=== PATIENT | female | born 1935 | race Caucasian/White ===

== ENCOUNTER 2016-06-02 13:58 | Emergency (ER) | payer OTHER ==
[~2016-06-02] VITALS: Ht 162.6 cm; Wt 88.0 kg
[~2016-06-02 13:58] MED LIST: ALBUAER2 INH; AMX500 PO; ASPEC81 PO; ATOR10TA88 PO; ATV5 PO; CHOL100010 PO; CLX20 PO; Cod Liver Oil PO; DXY100 PO; EZET10TA63 PO; FLUT110A INH; FRS/40 PO; LISI-461 PO; METO1TAB31 PO; MULT-506 PO; OXGN; PANT40TA PO; TIOTCAP INH; XPNINS INH
[2016-06-02 14:02] VITALS: TEMP 36.5; O2SAT 98; Ht 162.6 cm; Wt 88.0 kg
[2016-06-02] MEDS ORDERED: KETOROLAC TROMETHAMINE 30 MG/ML VIAL IV STA (14:44)
[2016-06-02] MEDS ORDERED: SODIUM CHLORIDE 0.9% 1000ML 500 ML IV STA (14:44)
[2016-06-02] MEDS ORDERED: ACETAMINOPHEN 500 MG TAB PO STA (14:44)
[2016-06-02] MEDS ORDERED: MoRPHine SULFATE 4 MG/ML 1 ML CARP\\VIAL IV PRN ×2 (14:45)
--- NOTE | 2016-06-02 14:46 | EMERGENCY ROOM VISIT NOTE ---
History Report prepared by Carrie: Rigoberto Verdin Under the Supervision of: Dr. Mauricio Watts M.D. First contact with patient: 14:28 Chief Complaint: BACK PAIN Stated Complaint: BACK PAIN History of Present Illness The patient is a 81 year old female who presents to the Emergency Room with complaints of severe and persistent low back pain starting 5 days ago. She also complains of diffuse abdominal pain. The patient recently had an x-ray for her pain with negative results. She also had a noncontrast CT scan of her back yesterday with negative results. She has not been prescribed any pain medication by her PCP. She has a history of thoracic aneurysm repair occurring several years ago. She denies fevers, chills, chest pain, or any other complaints. She has chronic shortness of breath. Source of History: patient Onset: 5 days ago Position: back (lower) Symptom Intensity: severe Timing: other (persistent) Associated Symptoms: + SOB (chronic), + abdominal pain, No chest pain, No chills, No fevers Review of Systems See HPI for pertinent positives & negatives. A total of 10 systems reviewed and were otherwise negative. Past Medical & Surgical Medical Problems: (1) Anxiety (2) aortic dissection repair (3) CKD (chronic kidney disease), stage III (4) COPD (chronic obstructive pulmonary disease) (5) Depression (6) Diaphragm paralysis (7) Diastolic CHF, chronic (8) Diverticular disease of colon (9) History of aortic dissection (10) Hyperlipemia (11) Hypertension (12) Hypertensive heart disease (13) Sleep apnea Surgical Problems: (1) Status post aortic dissection repair Family History Colon cancer MOTHER Coronary artery disease FATHER Diabetes mellitus MOTHER Social History Smoking Status: Former Smoker Alcohol Use: none Drug Use: none Marital Status: Housing Status: lives with family Occupation Status: retired Current/Historical Medications Scheduled Alendronate Sodium (Fosamax), 70 MG PO WK Amoxicillin (Amoxil *), 2,000 MG PO PRN/UD Aspirin Enteric Coated (Ecotrin Or Generic *), 81 MG PO DAILY Atorvastatin (Lipitor), 40 MG PO DAILY Cholecalciferol (Vitamin D), 1,000 INTER.UNIT PO DAILY Fluticasone Propionate Hfa (Flovent Hfa 110MCG Inhaler), 2 PUFF INH BID Furosemide (Lasix), 40 MG PO DAILY Lisinopril (Zestril), 5 MG PO DAILY Multivitamin (Multivitamin), 1 TAB PO DAILY Oxygen (Oxygen), 2 LITERS NA HS Pantoprazole (Protonix), 40 MG PO DAILY Sertraline (Zoloft), 100 MG PO DAILY Tiotropium [place] (Spiriva Handihaler), 1 CAP INH DAILY Scheduled PRN Albuterol (Ventolin Hfa), 2 PUFFS INH Q4H PRN for SOB/Wheezing Levalbuterol (Levalbuterol HCl), 0.63 MG INH Q8 PRN for SOB/Wheezing Lorazepam (Ativan *), 0.5 MG PO TID PRN for Anxiety Oxycodone/Acetaminophen 5MG/325MG (Percocet 5MG/325MG), 1-2 TABLETS PO Q4H PRN for Pain Miscellaneous Medications Acetaminophen (Tylenol), 1,000 MG PO Allergies Coded Allergies: Bacitracin (Unverified Allergy, Mild, REDNESS, 06/02/16) Neomycin (Unverified Allergy, Mild, REDNESS, 06/02/16) Polymyxin B (Unverified Allergy, Mild, REDNESS, 06/02/16) Physical Exam Vital Signs Date Time Temp Pulse Resp B/P Pulse Ox O2 Delivery O2 Flow Rate FiO2 06/02/16 18:10 80 20 158/60 Room Air 06/02/16 14:02 36.5 58 20 169/72 98 Room Air Physical Exam CONSTITUTIONAL: Moderate painful distress, appears mildly dyspneic but this is reportedly baseline after paralyzed diaphragm occurring several years ago. HEENT: No icterus, moist mucous membranes NECK: No meningismus, trachea is midline. CARDIOVASCULAR: Regular rate, normal perfusion RESPIRATORY: Unlabored breathing. Clear to auscultation. GASTROINTESTINAL: Non-tender GENITOURINARY: No flank tenderness MUSCULOSKELETAL: Full range of motion. Moderate diffuse low back pain right greater than left. NEUROLOGIC: No acute gross focal deficits. PSYCHIATRIC: Normal affect SKIN: Normal for ethnicity. Medical Decision & Procedures ER Provider Diagnostic Interpretation: CT results as stated below per my review and radiologist interpretation. 06/01/2016 CT ABDOMEN/PELVIS WITHOUT IV CONTRAST WITHOUT ORAL Abdominal wall/soft tissues: Unremarkable Bones: Multilevel degenerative changes in the spine. Bilateral hip osteoarthritis. Impression: No acute abnormality identified to explain the patient's abdominal pain. Authenticated by: Dieudonne Ware MD ADDENDUM Addendum: Upon further review, note was made of a small outpouching along the lateral wall of the mid descending thoracic aorta shown image 142 of 596. This may reflect a small penetrating ulcer. A short-term follow-up CTA of the chest is recommended. Discussed with Dr. Watts at time of dictation. Electronically signed by: Aleks Matute M.D. 06/02/2016 5:44 PM Dictated Date/Time: 06/02/2016 5:[address] ANGIOGRAPHY OF THE CHEST, ABDOMEN, AND PELVIS CLINICAL HISTORY: Back pain. History of aneurysm. COMPARISON STUDY: Chest CT June 22, [address] of the chest abdomen and pelvis October 08, 2009 and November 23, 2009 TECHNIQUE: Before and following the IV administration of 116 mL of Optiray-320, helical axial images of the chest, abdomen and pelvis were obtained. Maximal intensity projections and sagittal and coronal reformats were viewed on an independent 3D workstation. IV contrast was administered without complication. CT DOSE: 1752.53 mGy.cm FINDINGS: There are stable postsurgical findings consistent with repair of the ascending aorta. Mild dilatation is unchanged. There is no evidence for dissection or rupture. Mild to moderate cardiomegaly is noted. This extensive coronary artery calcification. No pulmonary emboli are identified. Right lung opacity suggest atelectasis or scarring. There is extensive atherosclerotic plaque of the aorta. Mild dilatation of the descending thoracic aorta is unchanged. Mild dilatation of the abdominal aorta has slightly increased. The abdominal aorta measures 3.1 cm in caliber. There are small gallstones within the gallbladder. There is mild gallbladder distention. A hepatic dome cyst is noted. The spleen, adrenal glands and pancreas are unremarkable. There are several subcentimeter renal lesions which are too small to characterize. There is no evidence for a bowel obstruction. There is a calcified uterine fibroid. Clonic diverticulosis is noted without evidence for acute diverticulitis. IMPRESSION: 1. No aortic dissection. Stable postoperative findings consistent with repair of the thoracic aorta since prior exam. Stable mild dilatation of the thoracic aorta. 2. 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 3. No acute process within the chest. 4. Cholelithiasis and mild gallbladder distention. This could be correlated with right upper quadrant pain and ultrasound as indicated. Electronically signed by: Aleks Matute M.D. 06/02/2016 5:31 PM Dictated Date/Time: 06/02/2016 5:20 PM Laboratory Results 06/02/16 15:00 Red Blood Count 4.05, Mean Corpuscular Volume 90.9, Mean Corpuscular Hemoglobin 30.9, Mean Corpuscular Hemoglobin Concent 34.0, Mean Platelet Volume 9.9, Neutrophils (%) (Auto) 53.6, Lymphocytes (%) (Auto) 37.0, Monocytes (%) (Auto) 6.2, Eosinophils (%) (Auto) 2.4, Basophils (%) (Auto) 0.6, Neutrophils # (Auto) 3.35, Lymphocytes # (Auto) 2.31, Monocytes # (Auto) 0.39, Eosinophils # (Auto) 0.15, Basophils # (Auto) 0.04 06/02/16 15:00 Test 06/02/16 15:00 06/02/16 17:40 White Blood Count 6.25 K/uL (4.8-10.8) Red Blood Count 4.05 M/uL (4.2-5.4) Hemoglobin 12.5 g/dL (12.0-16.0) Hematocrit 36.8 % (37-47) Mean Corpuscular Volume 90.9 fL (80-100) Mean Corpuscular Hemoglobin 30.9 pg (25-34) Mean Corpuscular Hemoglobin Concent 34.0 g/dl (32-36) Platelet Count 157 K/uL (130-400) Mean Platelet Volume 9.9 fL (7.4-10.4) Neutrophils (%) (Auto) 53.6 % Lymphocytes (%) (Auto) 37.0 % Monocytes (%) (Auto) 6.2 % Eosinophils (%) (Auto) 2.4 % Basophils (%) (Auto) 0.6 % Neutrophils # (Auto) 3.35 K/uL (1.4-6.5) Lymphocytes # (Auto) 2.31 K/uL (1.2-3.4) Monocytes # (Auto) 0.39 K/uL (0.11-0.59) Eosinophils # (Auto) 0.15 K/uL (0-0.5) Basophils # (Auto) 0.04 K/uL (0-0.2) RDW Standard Deviation 48.0 fL (36.4-46.3) RDW Coefficient of Variation 14.3 % (11.5-14.5) Immature Granulocyte % (Auto) 0.2 % Immature Granulocyte # (Auto) 0.01 K/uL (0.00-0.02) Anion Gap 9.0 mmol/L (3-11) Est Creatinine Clear Calc Drug Dose 47.4 ml/min Estimated GFR () 61.2 Estimated GFR (Non- 52.8 BUN/Creatinine Ratio 20.1 (10-20) Calcium Level 9.6 mg/dl (8.5-10.1) Total Bilirubin 0.3 mg/dl (0.2-1) Aspartate Amino Transf (AST/SGOT) 12 U/L (15-37) Alanine Aminotransferase (ALT/SGPT) 14 U/L (12-78) Alkaline Phosphatase 79 U/L (45-117) Total Protein 6.9 gm/dl (6.4-8.2) Albumin 4.1 gm/dl (3.4-5.0) Globulin 2.8 gm/dl (2.5-4.0) Albumin/Globulin Ratio 1.5 (0.9-2) Urine Color YELLOW Urine Appearance CLEAR (CLEAR) Urine pH 5.0 (4.5-7.5) Urine Specific [place] > 1.045 (1.000-1.030) Urine Protein NEG (NEG) Urine Glucose (UA) NEG (NEG) Urine Ketones NEG (NEG) Urine Occult Blood NEG (NEG) Urine Nitrite NEG (NEG) Urine Bilirubin NEG (NEG) Urine Urobilinogen NEG (NEG) Urine Leukocyte Esterase NEG (NEG) Labs reviewed by ED physician. Medications Administered Medications (Trade) Dose Ordered Sig/[place] Route Start Time Stop Time Status Last Admin Dose Admin Acetaminophen 1000 mg 1,000 mg NOW STAT PO 06/02/16 14:44 06/02/16 14:46 DC 06/02/16 15:14 1,000 MG Sodium Chloride (Nss 1000ml) 500 ml @ 0 mls/hr Q0M STAT IV 06/02/16 14:44 06/02/16 14:46 DC 06/02/16 15:16 0 MLS/HR Ketorolac Tromethamine (Toradol Inj) 15 mg NOW STAT IV 06/02/16 14:44 06/02/16 14:46 DC 06/02/16 15:13 15 MG Morphine Sulfate (MoRPHine SULFATE INJ) 4 mg ONE PRN IV 06/02/16 14:45 06/16/16 14:44 06/02/16 15:14 4 MG ED Course 1428: Past medical records reviewed. The patient was evaluated in room A04B. A complete history and physical examination was performed. 1444: Toradol Inj 15 mg IV, Sodium Chloride 500 ml @ 0 mls/hr Wide Open IV, Tylenol Tab 1000 mg PO 1445: Morphine Sulfate 4 mg IV 1743: I discussed the patient's radiology findings with Dr. Matute, radiologist with [facility]. 174: I discussed the patient's case with Dr. Abarca, vascular surgeon with [facility]. He recommended discharging the patient. 1804: Upon reexamination the patient is resting comfortably. I discussed results and treatment plan with the patient. She verbalizes agreement and understanding. The patient is ready for discharge. Medical Decision Differential diagnosis includes but is not limited to musculoskeletal pain, kidney stone, and AAA. 81-year-old presented to the emergency department for evaluation of worsening lower thoracic and lumbar back pain for several days without other systemic complaints. Seen by PCP with normal xray and CT abd/pelvis yesterday. Pt noted specific concern around prior thoracic aneurysm. In summary, a screening examination was performed to assess for life threatening pathologies and none were identified. Possibility of mild penetrating aortic ulcer discussed with radiology and then vascular on-call, Dr. Sánchez. We agree that radiologic findings do not appear to represent emergent pathology at this time. Patient was provided analgesics during ED course as well as Rx. It is noted that at the time of discharge pt was concerned I did not perform a physical examination. It is my recollection that I did perform both visual and tactile inspections of the back. She was also concerned I did not sufficiently assess for causes of her pain the ED today. The nature of patient's wait times (more than 4.5 hours door to discharge) and degree of staff attention are taken within the context of an especially busy ED with 2+ hour waits for patients' at risk for substantial emergent disease. She notes she was expecting an MRI after speaking with her PCP today and was surprised when I informed her that there did not appear to be a medical indication for emergent imaging with MRI at this time. It is also noted that I initially wanted to obtain CT chest/abd but patient declined citing concern she already had CT imaging yesterday. Therefore, I obtained copy of CT abd/pelvis report which was normal. I gave a copy of this report to patient and she continued to demonstrate concern over the thoracic aorta so I subsequently ordered the CTA Chest that I had originally informed her I would obtain but that was initially declined by her. I apologized that I could not identify the cause for her pain today but that musculoskeletal pain was high on the differential. I emphasized she can take 1- 2 tabs Q6 hours for pain, to arrange f/u with her PCP and to return to the ED for any worsening or worrisome symptoms. I made specific mention in the discharge instructions to discuss today's CT findings with her PCP. Consults Time Called: 1741 Consulting Physician: Dr. Matute, radiologist with [facility] Returned Call: 1742 I discussed the patient's radiology findings with Dr. Matute, radiologist with [facility]. Additional Consults: Time Called: 1743 Consulted Physician: Dr. Abarca, vascular surgeon with [facility] Returned Call: 1748 Additional Comments: I discussed the patient's case with Dr. Abarca, vascular surgeon with [facility]. He recommended discharging the patient. Impression Primary Impression: Back strain Scribe Attestation The scribe's documentation has been prepared under my direction and personally reviewed by me in its entirety. I confirm that the note above accurately reflects all work, treatment, procedures, and medical decision making performed by me. Departure Information Dispostion Home / Self-Care Prescriptions Oxycodone/Acetaminophen 5MG/325MG (PERCOCET 5MG/325MG) Tab 1-2 TABLETS PO Q4H Y for Pain, #20 TAB Prov: Mauricio Watts MD 06/02/16 Referrals Jacey Warner M.D. (PCP) Forms HOME CARE DOCUMENTATION FORM, IMPORTANT VISIT INFORMATION Patient Instructions Back Pain - [facility] Additional Instructions PLEASE FOLLOW-UP WITH YOUR DOCTOR AND DISCUSS THE CT FINDINGS. I SPOKE WITH VASCULAR SURGERY ON-CALL, Dr. ABARCA, WHO ADVISES OUTPATIENT FOLLOW-UP IS REASONABLE AT THIS TIME. PLEASE RETURN TO ER FOR ANY WORSENING OR WORRISOME SYMPTOMS.
[2016-06-02] MEDS ORDERED: ACET-1256 PO (15:05)
[2016-06-02 15:08] LABS: BASO % 0.6 %; BASO ABS # 0.04 K/uL (0-0.2); COMPLETE YES; EOS % 2.4 %; HEMATOCRIT 36.8 % (37-47); IG% 0.2 %; LYMPH ABS # 2.31 K/uL (1.2-3.4); MEAN CELL VOLUME 90.9 fL (80-100); MEAN CORPUSCULAR HEMOGLOBIN 30.9 pg (25-34); MEAN PLATELET VOLUME 9.9 fL (7.4-10.4); MONO % 6.2 %; NEUT % 53.6 %; PLATELET COUNT 157 K/uL (130-400); RED BLOOD COUNT 4.05 M/uL (4.2-5.4); WHITE BLOOD COUNT 6.25 K/uL (4.8-10.8)
[2016-06-02] MEDS ORDERED: SERT-234 PO (15:10)
[2016-06-02] MEDS ORDERED: ALEN70TA4 PO (15:10)
[2016-06-02] MEDS ORDERED: OPTIRAY 320 IV PRN (15:30)
[2016-06-02 15:37] LABS: BUN/CREATININE RATIO 20.1 (10-20); CALCIUM 9.6 mg/dl (8.5-10.1); POTASSIUM 3.6 mmol/L (3.5-5.1)
[2016-06-02 15:40] LABS: ALB/GLOB RATIO 1.5 (0.9-2)
--- NOTE | 2016-06-02 17:32 | DIAGNOSTIC IMAGING REPORT ---
ADDENDUM Addendum: Upon further review, note was made of a small outpouching along the lateral wall of the mid descending thoracic aorta shown image 142 of 596. This may reflect a small penetrating ulcer. A short-term follow-up CTA of the chest is recommended. Discussed with Dr. Watts at time of dictation. Electronically signed by: Aleks Matute M.D. 06/02/2016 5:44 PM Dictated Date/Time: 06/02/2016 5:[address] ANGIOGRAPHY OF THE CHEST, ABDOMEN, AND PELVIS CLINICAL HISTORY: Back pain. History of aneurysm. COMPARISON STUDY: Chest CT June 22, [address] of the chest abdomen and pelvis October 08, 2009 and November 23, 2009 TECHNIQUE: Before and following the IV administration of 116 mL of Optiray-320, helical axial images of the chest, abdomen and pelvis were obtained. Maximal intensity projections and sagittal and coronal reformats were viewed on an independent 3D workstation. IV contrast was administered without complication. CT DOSE: 1752.53 mGy.cm FINDINGS: There are stable postsurgical findings consistent with repair of the ascending aorta. Mild dilatation is unchanged. There is no evidence for dissection or rupture. Mild to moderate cardiomegaly is noted. This extensive coronary artery calcification. No pulmonary emboli are identified. Right lung opacity suggest atelectasis or scarring. There is extensive atherosclerotic plaque of the aorta. Mild dilatation of the descending thoracic aorta is unchanged. Mild dilatation of the abdominal aorta has slightly increased. The abdominal aorta measures 3.1 cm in caliber. There are small gallstones within the gallbladder. There is mild gallbladder distention. A hepatic dome cyst is noted. The spleen, adrenal glands and pancreas are unremarkable. There are several subcentimeter renal lesions which are too small to characterize. There is no evidence for a bowel obstruction. There is a calcified uterine fibroid. Clonic diverticulosis is noted without evidence for acute diverticulitis. IMPRESSION: 1. No aortic dissection. Stable postoperative findings consistent with repair of the thoracic aorta since prior exam. Stable mild dilatation of the thoracic aorta. 2. 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 3. No acute process within the chest. 4. Cholelithiasis and mild gallbladder distention. This could be correlated with right upper quadrant pain and ultrasound as indicated. Electronically signed by: Aleks Matute M.D. 06/02/2016 5:31 PM Dictated Date/Time: 06/02/2016 5:20 PM
[2016-06-02] MEDS ORDERED: OXYC-57 PO (17:59)
[2016-06-02 18:10] VITALS: BP 158/60; PULSE 80
[2016-06-02 18:23] LABS: MANUAL MICROSCOPIC REQUIRED? NO; REVIEW REQ? NO; URINE APPEARANCE CLEAR (CLEAR); URINE BILIRUBIN NEG (NEG); URINE COLOR YELLOW; URINE NITRITE NEG (NEG); URINE SPECIFIC GRAVITY > 1.045 (1.000-1.030); UROBILINOGEN NEG (NEG); ZZUR CULT IF INDIC CLEAN CATCH NO
[2017-02-08] MEDS ORDERED: LVQ750 PO (17:06)
[2017-02-08] MEDS ORDERED: PRED10TA PO (17:06)
== END 2016-06-02 18:33 | disposition home or self-care (01) ==
LOC: C.EDB 13:59 → C.EDA 18:33
DX: S39.012A Strain of muscle, fascia and tendon of lower back, initial encounter (principal); X58.XXXA Exposure to other specified factors, initial encounter; F41.9 Anxiety disorder, unspecified; N18.3 Chronic kidney disease, stage 3 (moderate); J44.9 Chronic obstructive pulmonary disease, unspecified; I12.9 Hypertensive chronic kidney disease with stage 1 through stage 4 chronic kidney disease, or unspecified chronic kidney disease; F32.9 Major depressive disorder, single episode, unspecified; I50.32 Chronic diastolic (congestive) heart failure; E78.5 Hyperlipidemia, unspecified; G47.30 Sleep apnea, unspecified; Z83.3 Family history of diabetes mellitus; Z80.0 Family history of malignant neoplasm of digestive organs; Z82.49 Family history of ischemic heart disease and other diseases of the circulatory system; Z87.891 Personal history of nicotine dependence; Z79.82 Long term (current) use of aspirin; Z79.899 Other long term (current) drug therapy

== ENCOUNTER 2017-02-03 10:57 | Inpatient (IN) | payer OTHER ==
[2017-02-03] VITALS (7 sets, daily range): BP systolic 156–161; BP diastolic 77; PULSE 61–88; TEMP 36.6–36.8; O2SAT 94–96; Ht 162.6 cm; Wt 90.8 kg
[~2017-02-03] VITALS: Ht 162.6 cm; Wt 90.8 kg
[~2017-02-03 10:57] MED LIST changes: +ACET-1256 PO; +ALEN70TA4 PO; -CLX20 PO; -Cod Liver Oil PO; -DXY100 PO; -EZET10TA63 PO; -METO1TAB31 PO; +SERT-234 PO
[2017-02-03 11:46] LABS: BASO % 0.2 %; BASO ABS # 0.02 K/uL (0-0.2); COMPLETE YES; EOS % 0.1 %; IG% 0.3 %; LYMPH % 6.8 %; LYMPH ABS # 0.64 K/uL (1.2-3.4); MEAN CELL VOLUME 95.8 fL (80-100); MEAN CORPUSCULAR HEMOGLOBIN 30.5 pg (25-34); MEAN CORPUSCULAR HGB CONC 31.8 g/dl (32-36); MEAN PLATELET VOLUME 10.7 fL (7.4-10.4); MONO % 2.2 %; NEUT % 90.4 %; PLATELET COUNT 195 K/uL (130-400); RED BLOOD COUNT 4.07 M/uL (4.2-5.4); WHITE BLOOD COUNT 9.36 K/uL (4.8-10.8)
[2017-02-03] MEDS ORDERED: LEVAQUIN 750MG / 150ML D5W IV STA (11:52)
[2017-02-03] MEDS ORDERED: ALBUT/IPRATROP 3MG/0.5MG NEB 3 ML VIAL INH STA (11:52)
[2017-02-03 11:57] LABS: PROTHROMBIN TIME (PATIENT) 10.9 SECONDS (9.0-12.0)
--- NOTE | 2017-02-03 11:57 | DIAGNOSTIC IMAGING REPORT ---
CHEST ONE VIEW PORTABLE CLINICAL HISTORY: SOB, cough COMPARISON STUDY: 10/02/2015 FINDINGS: The heart is mildly enlarged. There is aortic tortuosity. There are postsurgical changes of midline sternotomy. There is mild central vascular prominence without evidence of overt failure. There is elevation of the lateral aspect of the right hemidiaphragm with right basilar opacities. These could be either atelectatic or inflammatory.[ IMPRESSION: 1. Cardiomegaly with mild central vascular prominence but no evidence of overt failure 2. Probable right sided pleural diaphragmatic scarring. Right basilar opacities, atelectatic versus inflammatory. Electronically signed by: Joe Nicholas M.D. 02/03/2017 11:56 AM Dictated Date/Time: 02/03/2017 11:54 AM
--- NOTE | 2017-02-03 12:00 | EMERGENCY ROOM VISIT NOTE ---
History Report prepared by Carrie: Yang James Under the Supervision of: Dr. Ryan Benoit D.O. First contact with patient: 11:47 Chief Complaint: SHORTNESS OF BREATH Stated Complaint: SHORT OF BREATH Nursing Triage Summary: Patient arrived via EMS c/o cough since Monday. 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 Pt c/o sore throat from coughing. 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 Pt denies that the woman was coughing. History of Present Illness The patient is an 81 year old female with a history of frequent pneumonia who presents to the Emergency Room via EMS with complaints of worsening shortness of breath that started 3 days ago. She says that she has the frequent pneumonia bouts because of a paralyzed right side of diaphragm from a thoracic aorta aneurysm rupture. She says that she caught another cold, but with her lung problems, her colds get very bad. She states that she has a productive cough with clear sputum in addition to the shortness of breath. The patient adds that she has had pneumonia 7 times, and was hospitalized twice for it. She says that she usually takes her rescue medications when the symptoms come on, and sometimes it does relieve her symptoms. The patient notes that she did start her rescue medications 2 days ago, which include a Prednisone taper and Doxycycline. Per the nursing staff, the patient was given 2 DuoNeb and 125 mg Solu-Medrol by EMS. The patient denies any fevers, chest pain, or leg swelling. Source of History: patient Onset: 3 days ago Position: other (global - shortness of breath) Timing: worsening Associated Symptoms: + cough (productive), No fevers, No chest pain Note: Associated symptoms: Denies leg swelling. Review of Systems See HPI for pertinent positives & negatives. A total of 10 systems reviewed and were otherwise negative. Past Medical & Surgical Medical Problems: (1) Anxiety (2) aortic dissection repair (3) CKD (chronic kidney disease), stage III (4) COPD (chronic obstructive pulmonary disease) (5) Depression (6) Diaphragm paralysis (7) Diastolic CHF, chronic (8) Diverticular disease of colon (9) History of aortic dissection (10) Hyperlipemia (11) Hypertension (12) Hypertensive heart disease (13) Hypoxia (14) Sleep apnea Surgical Problems: (1) Status post aortic dissection repair Family History Colon cancer MOTHER Coronary artery disease FATHER Diabetes mellitus MOTHER Social History Smoking Status: Never Smoker Alcohol Use: none Drug Use: none Marital Status: Housing Status: lives with family Occupation Status: retired Current/Historical Medications Scheduled Aspirin (Aspirin Ec), 81 MG PO DAILY Atorvastatin (Lipitor), 40 MG PO DAILY Carvedilol (Coreg), 3.125 MG PO DAILY Cholecalciferol (Vitamin D3), 1 TAB PO DAILY Furosemide (Lasix), 1.5 TAB PO DAILY Home O2 Therapy (Oxygen), 2 LITERS NA HS Lisinopril (Zestril), 5 MG PO DAILY Mometasone Furoate-Formoterol (Dulera 200/5 Mcg), 2 PUFFS INH BID Multivitamin (Multivitamin), 1 TAB PO DAILY Pantoprazole (Protonix), 40 MG PO DAILY Sertraline (Zoloft), 100 MG PO DAILY Scheduled PRN Albuterol Hfa (Ventolin Hfa), 2-4 PUFFS INH Q4H PRN for SOB/Wheezing Levalbuterol (Levalbuterol HCl), 1 DOSE INH Q6H PRN for SOB/Wheezing Lorazepam (Ativan), 0.5 MG PO TID PRN for Anxiety/Insomnia Tiotropium [place] (Spiriva Handihaler), 1 CAP INH for Shortness of Breath Miscellaneous Medications Acetaminophen (Tylenol), 1,000 MG PO Amoxicillin (Amoxil), 500 MG PO Allergies Coded Allergies: Bacitracin (Unverified Allergy, Mild, REDNESS, 02/03/17) Neomycin (Unverified Allergy, Mild, REDNESS, 02/03/17) Polymyxin B (Unverified Allergy, Mild, REDNESS, 02/03/17) Physical Exam Vital Signs Date Time Temp Pulse Resp B/P (MAP) Pulse Ox O2 Delivery O2 Flow Rate FiO2 02/03/17 13:21 96 Nasal Cannula 4.0 02/03/17 11:57 81 16 160/73 96 Nasal Cannula 4.0 02/03/17 11:36 89 02/03/17 11:15 94 Nasal Cannula 4.0 9/22/17 11:15 94 Nasal Cannula 4.0 02/03/17 11:00 37.1 78 16 180/76 96 Nasal Cannula 4.0 02/03/17 11:00 94 Room Air 02/03/17 11:00 96 Nasal Cannula 4.0 Physical Exam GENERAL: Patient is awake, alert, somewhat anxious appearing but comfortable. EYES: The conjunctivae are clear. The pupils are round and reactive. EARS, NOSE, MOUTH AND THROAT: The nose is without any evidence of any deformity. Mucous membranes are moist tongue is midline NECK: The neck is nontender and supple. RESPIRATORY: Lung sounds are diminished throughout with scattered expiratory wheezing in all white. Significant tachypnea and conversational dyspnea noted. CARDIOVASCULAR: Regular rate and rhythm noted there no murmurs rubs or gallops normal S1 normal S2 GASTROINTESTINAL: The abdomen is soft. Bowel sounds are present in all quadrants. Abdomen is nontender MUSCULOSKELETAL/EXTREMITIES: There is no evidence of gross deformity full range of motion is noted in the hips and shoulders SKIN: Trace pedal edema bilaterally. NEUROLOGIC: Patient is awake alert and oriented x3. Medical Decision & Procedures ER Provider Diagnostic Interpretation: X-ray results as stated below per interpretation by me and the radiologist. CHEST ONE VIEW PORTABLE CLINICAL HISTORY: SOB, cough COMPARISON STUDY: 10/02/2015 FINDINGS: The heart is mildly enlarged. There is aortic tortuosity. There are postsurgical changes of midline sternotomy. There is mild central vascular prominence without evidence of overt failure. There is elevation of the lateral aspect of the right hemidiaphragm with right basilar opacities. These could be either atelectatic or inflammatory.[ IMPRESSION: 1. Cardiomegaly with mild central vascular prominence but no evidence of overt failure 2. Probable right sided pleural diaphragmatic scarring. Right basilar opacities, atelectatic versus inflammatory. Electronically signed by: Joe Nicholas M.D. 02/03/2017 11:56 AM Dictated Date/Time: 02/03/2017 11:54 AM Laboratory Results 02/03/17 10:21 Red Blood Count 4.07, Mean Corpuscular Volume 95.8, Mean Corpuscular Hemoglobin 30.5, Mean Corpuscular Hemoglobin Concent 31.8, Mean Platelet Volume 10.7, Neutrophils (%) (Auto) 90.4, Lymphocytes (%) (Auto) 6.8, Monocytes (%) (Auto) 2.2, Eosinophils (%) (Auto) 0.1, Basophils (%) (Auto) 0.2, Neutrophils # (Auto) 8.45, Lymphocytes # (Auto) 0.64, Monocytes # (Auto) 0.21, Eosinophils # (Auto) 0.01, Basophils # (Auto) 0.02 02/03/17 10:21 Test 02/03/17 10:21 White Blood Count 9.36 K/uL (4.8-10.8) Red Blood Count 4.07 M/uL (4.2-5.4) Hemoglobin 12.4 g/dL (12.0-16.0) Hematocrit 39.0 % (37-47) Mean Corpuscular Volume 95.8 fL (80-100) Mean Corpuscular Hemoglobin 30.5 pg (25-34) Mean Corpuscular Hemoglobin Concent 31.8 g/dl (32-36) Platelet Count 195 K/uL (130-400) Mean Platelet Volume 10.7 fL (7.4-10.4) Neutrophils (%) (Auto) 90.4 % Lymphocytes (%) (Auto) 6.8 % Monocytes (%) (Auto) 2.2 % Eosinophils (%) (Auto) 0.1 % Basophils (%) (Auto) 0.2 % Neutrophils # (Auto) 8.45 K/uL (1.4-6.5) Lymphocytes # (Auto) 0.64 K/uL (1.2-3.4) Monocytes # (Auto) 0.21 K/uL (0.11-0.59) Eosinophils # (Auto) 0.01 K/uL (0-0.5) Basophils # (Auto) 0.02 K/uL (0-0.2) RDW Standard Deviation 51.0 fL (36.4-46.3) RDW Coefficient of Variation 14.7 % (11.5-14.5) Immature Granulocyte % (Auto) 0.3 % Immature Granulocyte # (Auto) 0.03 K/uL (0.00-0.02) Prothrombin Time 10.9 SECONDS (9.0-12.0) Prothromb Time International Ratio 1.0 (0.9-1.1) Activated Partial Thromboplast Time 25.3 SECONDS (21.0-31.0) Partial Thromboplastin Ratio 1.0 Anion Gap 7.0 mmol/L (3-11) Est Creatinine Clear Calc Drug Dose 57.7 ml/min Estimated GFR () 74.5 Estimated GFR (Non- 64.3 BUN/Creatinine Ratio 18.7 (10-20) Calcium Level 9.3 mg/dl (8.5-10.1) Total Bilirubin 0.4 mg/dl (0.2-1) Aspartate Amino Transf (AST/SGOT) 11 U/L (15-37) Alanine Aminotransferase (ALT/SGPT) 19 U/L (12-78) Alkaline Phosphatase 99 U/L (45-117) Troponin I 0.171 ng/ml (0-0.045) Total Protein 7.4 gm/dl (6.4-8.2) Albumin 4.0 gm/dl (3.4-5.0) Globulin 3.4 gm/dl (2.5-4.0) Albumin/Globulin Ratio 1.2 (0.9-2) Laboratory results per my review. Medications Administered Medications (Trade) Dose Ordered Sig/Maricel Route Start Time Stop Time Status Last Admin Dose Admin Albuterol/ Ipratropium (Duoneb) 3 ml NOW STAT INH 02/03/17 11:52 02/03/17 11:53 DC 02/03/17 11:59 3 ML Levofloxacin (Levaquin / D5W) 750 mg NOW STAT IV 02/03/17 11:52 02/03/17 11:53 DC 02/03/17 11:59 750 MG Acetaminophen (Tylenol Tab) 1,000 mg NOW STAT PO 02/03/17 13:40 02/03/17 13:41 DC 02/03/17 13:52 1,000 MG ECG Indication: SOB/dyspnea Rate (beats per minute): 76 Rhythm: normal sinus Findings: ST depression (Lateral), no ectopy, other (LVH noted by voltage criteria) Comparison ECG Date: increased rate otherwise no significant change from July 03 2013 ED Course 1150: The patient was evaluated in room C4. A complete history and physical examination were performed. 1152: Ordered Levaquin / D5W 750 mg IV, DuoNeb 3 ml INH. 1235: I reevaluated the patient and she is resting. The patient verbally expressed understanding and agreement with the treatment plan. The patient will be evaluated for further treatment. 1243: I discussed the patient with Dr. Eric Tran dosimetrist. She will evaluate the patient for further treatment. Medical Decision Differential diagnosis: Etiologies such as infections, reactive airway disease, pneumonia, pneumothorax , COPD, CHF, cardiac ischemia, pulmonary embolism, musculoskeletal, gastrointestinal, as well as others were entertained. Nursing notes reviewed. The patient is an 81-year-old female who presented to the emergency department for an evaluation of shortness of breath. The patient has a history of COPD and started taking her rescue pack earlier in the week. She started taking doxycycline and prednisone but her symptoms became much worse today. She's been having significant dyspnea on exertion. On physical exam she had significant dyspnea on exertion. The patient required supple and oxygen in the emergency department with some improvement. The patient was treated with 2 bronchodilator nebulizers prior to arrival as well as IV Solu-Medrol. She was significantly improved. She required another nebulizer in the emergency department. I also gave her IV antibiotics because of presumed bronchitis with the patient's increased sputum production. I discussed the patient's laboratory and radiographic studies with her. She was significantly improved but I feel with her age and comorbidities she may require further inpatient treatment. For this reason I discussed her case with the on-call [facility] hospitalist. They've agreed to evaluate patient in the emergency department for further management and disposition. Medication Reconcilliation Current Medication List: was personally reviewed by me Blood Pressure Screening Patient's blood pressure: Elevated blood pressure Blood pressure disposition: Elevated BP felt to be situational Consults Time Called: 1240 Consulting Physician: Dr. Eric Tran dosimetrist Returned Call: 1243 I discussed the patient with Dr. Eric Tran dosimetrist. She will evaluate the patient for further treatment. Impression Primary Impression: COPD exacerbation Additional Impressions: Acute bronchitis Elevated troponin Scribe Attestation The scribe's documentation has been prepared under my direction and personally reviewed by me in its entirety. I confirm that the note above accurately reflects all work, treatment, procedures, and medical decision making performed by me. Departure Information Dispostion Being Evaluated By Hospitalist Referrals Jacey Warner M.D. (PCP) Patient Instructions My [facility] Problem Qualifiers Additional Impressions: Acute bronchitis Bronchitis organism: unspecified organism Qualified Codes: J20.9 - Acute bronchitis, unspecified
[2017-02-03 12:16] LABS: BUN/CREATININE RATIO 18.7 (10-20); CALCIUM 9.3 mg/dl (8.5-10.1); CREATININE 0.85 mg/dl (0.60-1.20); POTASSIUM 3.7 mmol/L (3.5-5.1)
[2017-02-03 12:32] LABS: ALB/GLOB RATIO 1.2 (0.9-2)
[2017-02-03] MEDS ORDERED: ASPI81TA28 PO (12:51)
[2017-02-03] MEDS ORDERED: VNTHFA/IN INH (12:51)
[2017-02-03] MEDS ORDERED: AMOX500C3 PO (12:51)
[2017-02-03] MEDS ORDERED: OXGN (12:51)
[2017-02-03] MEDS ORDERED: CHOL1000 PO (12:51)
[2017-02-03] MEDS ORDERED: LORA-741 PO (12:51)
[2017-02-03] MEDS ORDERED: SPRIN/30 INH (12:51)
[2017-02-03] MEDS ORDERED: XPNINS INH (12:51)
[2017-02-03] MEDS ORDERED: CARV3.122 PO (12:51)
[2017-02-03] MEDS ORDERED: MOME200A INH (12:51)
[2017-02-03] MEDS ORDERED: ACETAMINOPHEN 500 MG TAB PO STA (13:40)
[2017-02-03] MEDS ORDERED: NITROGLYCERIN 0.4 MG SL PER TAB CHARGE SL PRN (14:30)
[2017-02-03] MEDS ORDERED: POLYETHYLENE (MIRALAX) 17 GM PACK PO PRN (14:30)
[2017-02-03] MEDS ORDERED: ONDANSETRON INJ 2 MG/ML 2 ML VIAL IV PRN (14:30)
[2017-02-03] MEDS ORDERED: MoRPHine SULFATE 2 MG/ML CARP IV PRN (14:30)
[2017-02-03] MEDS ORDERED: TRAM-10 PO (14:37)
[2017-02-03] MEDS ORDERED: LPT/40 PO (14:37)
[2017-02-03] MEDS ORDERED: ALEN70TA4 PO (14:37)
[2017-02-03] MEDS ORDERED: PRED10TA PO (14:37)
[2017-02-03] MEDS ORDERED: DXY100 PO (14:37)
[2017-02-03] MEDS ORDERED: LEVOFLOXACIN CONSULT ACTIVE SCH (14:38)
[2017-02-03] MEDS ORDERED: LORAZEPAM 0.5 MG TAB PO PRN (14:45)
--- NOTE | 2017-02-03 15:09 | History and Physical ---
History & Physical Date & Time of Service: Feb 03, 2017 at 14:40 Chief Complaint: Short Of Breath Primary Care Physician: Amina Alcantar D.O. History of Present Illness Source: patient, family, clinic records, hospital records The patient is an 81 yo F with h/o COPD who presents after three days of feeling chest congestion, nasal congestion and shortness of breath. She has been taking her rescue pack which includes a taper of prednisone starting at 50mg daily along with doxycycline BID but with no improvement. She is experiencing conversational dyspnea, persistent cough productive of whitish sputum and states this is the way she looks when she has had COPD exacerbations in the past. She denies any sick contacts but states that in her area of [place], there were two children infected with Pertussis and she was exposed to the one of the children's mother but no the child. She has had insomnia from incessant coughing overnight. She denies any chest pain, fevers, chills, nausea , vomiting, diarrhea, abdominal pain or UTI symptoms. She reports that she is chronically short of breath which is worse when she is coughing here in the past 3 days. She has a sore abdomen laterally from coughing. She has a headache that just began in the ER. She reports some constipation from the rescue pack medications. 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 She reports a sore throat from coughing. 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 Status: Chronic (7) Diastolic CHF, chronic Status: Chronic (8) Diverticular disease of colon Status: Chronic (9) History of aortic dissection Permanent Comment: 2009 Status: Chronic (10) Hyperlipemia Status: Chronic (11) Hypertension Status: Chronic (12) Hypertensive heart disease Status: Chronic (13) Sleep apnea Permanent Comment: CPAP with O2 2 LPM Status: Chronic Surgical Problems: (1) Status post aortic dissection repair Permanent Comment: 2009 [facility] Status: Chronic Family History Colon cancer MOTHER Coronary artery disease FATHER Diabetes mellitus MOTHER Social History Smoking Status: Former Smoker (lifelong former smoker, quit in 2009) Smokeless Tobacco Use: No Alcohol Use: none Drug Use: none Marital Status: Housing status: lives with significant other Occupational Status: retired Immunizations History of Influenza Vaccine: Yes Influenza Vaccine Date: Mar 07, 2016 History of Tetanus Vaccine?: Yes Tetanus Immunization Date: Jan 18, 2008 History of Pneumococcal: Yes Pneumococcal Date: Aug 13, 2014 History of Hepatitis B Vaccine: Unknown Multi-Drug Resistant Organisms History of MDRO: No Allergies Coded Allergies: Bacitracin (Unverified Allergy, Mild, REDNESS, 02/03/17) Neomycin (Unverified Allergy, Mild, REDNESS, 02/03/17) Polymyxin B (Unverified Allergy, Mild, REDNESS, 02/03/17) Home Medications Scheduled Alendronate Sodium (Fosamax), 1 TAB PO WK Aspirin (Aspirin Ec), 81 MG PO DAILY Atorvastatin (Lipitor), 40 MG PO DAILY Carvedilol (Coreg), 3.125 MG PO DAILY Cholecalciferol (Vitamin D3), 1 TAB PO DAILY Furosemide (Lasix), 1.5 TAB PO DAILY Home O2 Therapy (Oxygen), 2 LITERS NA HS Lisinopril (Zestril), 5 MG PO DAILY Mometasone Furoate-Formoterol (Dulera 200/5 Mcg), 2 PUFFS INH BID Multivitamin (Multivitamin), 1 TAB PO DAILY Pantoprazole (Protonix), 40 MG PO DAILY Sertraline (Zoloft), 100 MG PO DAILY Tiotropium [place] (Spiriva Handihaler), 1 CAP INH DAILY Scheduled PRN Albuterol Hfa (Ventolin Hfa), 2-4 PUFFS INH Q4H PRN for SOB/Wheezing Doxycycline Hyclate (Doxycycline Hyclate), 100 MG PO BID PRN for COPD exacerbation Levalbuterol (Levalbuterol HCl), 1 DOSE INH Q6H PRN for SOB/Wheezing Lorazepam (Ativan), 0.5 MG PO TID PRN for Anxiety/Insomnia Prednisone Tab (Prednisone), 10 MG PO UD PRN for COPD exacerbation Tramadol (Ultram), 50 MG PO Q6H PRN for Pain Miscellaneous Medications Acetaminophen (Tylenol), 1,000 MG PO Amoxicillin (Amoxil), 500 MG PO Review of Systems At least ten systems were reviewed and negative except as indicated in HPI. Physical Exam Vital Signs Date Time Temp Pulse Resp B/P (MAP) Pulse Ox O2 Delivery O2 Flow Rate FiO2 02/03/17 13:30 71 26 138/61 96 Nasal Cannula 2.0 02/03/17 13:21 96 Nasal Cannula 4.0 02/03/17 13:00 77 20 130/70 97 Nasal Cannula 2.0 02/03/17 11:57 81 16 160/73 96 Nasal Cannula 4.0 02/03/17 11:36 89 02/03/17 11:15 94 Nasal Cannula 4.0 02/03/17 11:15 94 Nasal Cannula 4.0 02/03/17 11:00 37.1 78 16 180/76 96 Nasal Cannula 4.0 02/03/17 11:00 94 Room Air 02/03/17 11:00 96 Nasal Cannula 4.0 General Appearance: WD/WN, + mild distress Head: normocephalic, atraumatic Eyes: normal inspection, PERRL, sclerae normal ENT: hearing grossly normal, pharynx normal, + pertinent finding (no sinus TTP) Neck: supple, no adenopathy, no JVD, trachea midline Respiratory/Chest: + respiratory distress (conversational dyspnea), + wheezing (diffuse wheezing throughout all lung white. ) Cardiovascular: regular rate, rhythm, no edema, no gallop, no murmur, normal peripheral pulses Abdomen/GI: normal bowel sounds, non tender, soft Back: normal inspection Extremities/Musculoskelatal: normal inspection, + pertinent finding (no edema) Neurologic/Psych: no motor/sensory deficits, alert, normal mood/affect, oriented x 3 Skin: normal color, warm/dry Diagnostics Laboratory Results 02/03/17 10:21 Red Blood Count 4.07, Mean Corpuscular Volume 95.8, Mean Corpuscular Hemoglobin 30.5, Mean Corpuscular Hemoglobin Concent 31.8, Mean Platelet Volume 10.7, Neutrophils (%) (Auto) 90.4, Lymphocytes (%) (Auto) 6.8, Monocytes (%) (Auto) 2.2, Eosinophils (%) (Auto) 0.1, Basophils (%) (Auto) 0.2, Neutrophils # (Auto) 8.45, Lymphocytes # (Auto) 0.64, Monocytes # (Auto) 0.21, Eosinophils # (Auto) 0.01, Basophils # (Auto) 0.02 02/03/17 10:21 Test 02/03/17 10:21 White Blood Count 9.36 K/uL (4.8-10.8) Red Blood Count 4.07 M/uL (4.2-5.4) Hemoglobin 12.4 g/dL (12.0-16.0) Hematocrit 39.0 % (37-47) Mean Corpuscular Volume 95.8 fL (80-100) Mean Corpuscular Hemoglobin 30.5 pg (25-34) Mean Corpuscular Hemoglobin Concent 31.8 g/dl (32-36) Platelet Count 195 K/uL (130-400) Mean Platelet Volume 10.7 fL (7.4-10.4) Neutrophils (%) (Auto) 90.4 % Lymphocytes (%) (Auto) 6.8 % Monocytes (%) (Auto) 2.2 % Eosinophils (%) (Auto) 0.1 % Basophils (%) (Auto) 0.2 % Neutrophils # (Auto) 8.45 K/uL (1.4-6.5) Lymphocytes # (Auto) 0.64 K/uL (1.2-3.4) Monocytes # (Auto) 0.21 K/uL (0.11-0.59) Eosinophils # (Auto) 0.01 K/uL (0-0.5) Basophils # (Auto) 0.02 K/uL (0-0.2) RDW Standard Deviation 51.0 fL (36.4-46.3) RDW Coefficient of Variation 14.7 % (11.5-14.5) Immature Granulocyte % (Auto) 0.3 % Immature Granulocyte # (Auto) 0.03 K/uL (0.00-0.02) Prothrombin Time 10.9 SECONDS (9.0-12.0) Prothromb Time International Ratio 1.0 (0.9-1.1) Activated Partial Thromboplast Time 25.3 SECONDS (21.0-31.0) Partial Thromboplastin Ratio 1.0 Anion Gap 7.0 mmol/L (3-11) Est Creatinine Clear Calc Drug Dose 57.7 ml/min Estimated GFR () 74.5 Estimated GFR (Non- 64.3 BUN/Creatinine Ratio 18.7 (10-20) Calcium Level 9.3 mg/dl (8.5-10.1) Total Bilirubin 0.4 mg/dl (0.2-1) Aspartate Amino Transf (AST/SGOT) 11 U/L (15-37) Alanine Aminotransferase (ALT/SGPT) 19 U/L (12-78) Alkaline Phosphatase 99 U/L (45-117) Troponin I 0.171 ng/ml (0-0.045) Total Protein 7.4 gm/dl (6.4-8.2) Albumin 4.0 gm/dl (3.4-5.0) Globulin 3.4 gm/dl (2.5-4.0) Albumin/Globulin Ratio 1.2 (0.9-2) Results Past 24 Hours Test 02/03/17 10:21 Range/Units White Blood Count 9.36 4.8-10.8 K/uL Red Blood Count 4.07 4.2-5.4 M/uL Hemoglobin 12.4 12.0-16.0 g/dL Hematocrit 39.0 37-47 % Mean Corpuscular Volume 95.8 80-100 fL Mean Corpuscular Hemoglobin 30.5 25-34 pg Mean Corpuscular Hemoglobin Concent 31.8 32-36 g/dl Platelet Count 195 130-400 K/uL Mean Platelet Volume 10.7 7.4-10.4 fL Neutrophils (%) (Auto) 90.4 % Lymphocytes (%) (Auto) 6.8 % Monocytes (%) (Auto) 2.2 % Eosinophils (%) (Auto) 0.1 % Basophils (%) (Auto) 0.2 % Neutrophils # (Auto) 8.45 1.4-6.5 K/uL Lymphocytes # (Auto) 0.64 1.2-3.4 K/uL Monocytes # (Auto) 0.21 0.11-0.59 K/uL Eosinophils # (Auto) 0.01 0-0.5 K/uL Basophils # (Auto) 0.02 0-0.2 K/uL RDW Standard Deviation 51.0 36.4-46.3 fL RDW Coefficient of Variation 14.7 11.5-14.5 % Immature Granulocyte % (Auto) 0.3 % Immature Granulocyte # (Auto) 0.03 0.00-0.02 K/uL Prothrombin Time 10.9 9.0-12.0 SECONDS Prothromb Time International Ratio 1.0 0.9-1.1 Activated Partial Thromboplast Time 25.3 21.0-31.0 SECONDS Partial Thromboplastin Ratio 1.0 Sodium Level 141 136-145 mmol/L Potassium Level 3.7 3.5-5.1 mmol/L Chloride Level 107 98-107 mmol/L Carbon Dioxide Level 27 21-32 mmol/L Anion Gap 7.0 3-11 mmol/L Blood Urea Nitrogen 16 7-18 mg/dl Creatinine 0.85 0.60-1.20 mg/dl Est Creatinine Clear Calc Drug Dose 57.7 ml/min Estimated GFR () 74.5 Estimated GFR (Non- 64.3 BUN/Creatinine Ratio 18.7 10-20 Random Glucose 123 70-99 mg/dl Calcium Level 9.3 8.5-10.1 mg/dl Total Bilirubin 0.4 0.2-1 mg/dl Aspartate Amino Transf (AST/SGOT) 11 15-37 U/L Alanine Aminotransferase (ALT/SGPT) 19 12-78 U/L Alkaline Phosphatase 99 45-117 U/L Troponin I 0.171 0-0.045 ng/ml Total Protein 7.4 6.4-8.2 gm/dl Albumin 4.0 3.4-5.0 gm/dl Globulin 3.4 2.5-4.0 gm/dl Albumin/Globulin Ratio 1.2 0.9-2 Diagnostic Radiology CHEST ONE VIEW PORTABLE CLINICAL HISTORY: SOB, cough COMPARISON STUDY: 10/02/2015 FINDINGS: The heart is mildly enlarged. There is aortic tortuosity. There are postsurgical changes of midline sternotomy. There is mild central vascular prominence without evidence of overt failure. There is elevation of the lateral aspect of the right hemidiaphragm with right basilar opacities. These could be either atelectatic or inflammatory.[ IMPRESSION: 1. Cardiomegaly with mild central vascular prominence but no evidence of overt failure 2. Probable right sided pleural diaphragmatic scarring. Right basilar opacities, atelectatic versus inflammatory. EKG SR 76 with LVH repol abnormality present Impression Assessment and Plan 81 yo F with shortness of breath x 3 days 2/2 COPD exacerbation 1. SOB and hypoxia 2/2 COPD exacerbation-Levaquin to cover poss bronchitis w bacterial component, otherwise Solumedrol IV 40mg q8h, scheduled nebs, oxygen support. No apparent pneumonia on history or CXR. 2. Elevated troponin likely 2/2 demand ischemia-no chest pain at this time, clinical picture not consistent with ACS and no ischemic changes on EKG. TTE in am. Last TTE was 1 yr ago 3. HARMEET-on CPAP 4. Chronic diastolic CHF-appears compensated, cont med management per home regimen 5. CKD Stage III-at baseline 6. s/p aortic dissection in past s/p repair with paralyzed phrenic nerve and subsequent R hemidiaphragm elevation DVT proph-Lovenox DNR-confirmed with patient and her daughter who is at bedside on admission Dispo-to telemetry Hanane Reyes DO [facility]ist Level of Care Telemetry Advanced Directives Existing Living Will: No Existing Power of Supervisor Extruding Department: No Resuscitation Status FULL RESUSCITATION VTE Prophylaxis VTE Risk Assessment Done? Y/N: Yes Risk Level: Moderate Given or contraindicated: Enoxaparin (Lovenox)SQ
[2017-02-03] MEDS: ALBUT/IPRATROP 3MG/0.5MG NEB 3 ML VIAL INH SCH ×2 (16:00→19:05)
[2017-02-03] MEDS: METHYLPREDNISOLONE IV 40 MG in SYRINGE 0 ML IV SCH ×2 (16:39→23:14)
--- NOTE | 2017-02-03 16:46 | ECHOCARDIOGRAM REPORT ---
*NOTICE TO RECEIVING REPUBLICAN AGENCY This information is strictly Confidential and protected under [place] law. [place] law prohibits you from making any further disclosure of this information unless further disclosure is expressly permitted by the written consent of the person to whom it pertains or is authorized by law. A general authorization for the release of medical or other information is not sufficient for this purpose. Hospital accepts no responsibility if the information is made available to any other person, INCLUDING THE PATIENT. Interpretation Summary * Name: SATYA ADAME Study Date: 02/03/2017 02:55 PM BP: 138/61 mmHg * Patient Location: [facility] HR: 71 * : 1935 (M/d/yyyy) Gender: Female Height: 64 in * Age: 81 yrs Ethnicity: [place] Weight: 207 lb * Ordering Physician: Hanane Reyes * Referring Physician: Self, Referred * Performed By: Agnes Trimble RDCS * * Reason For Study: Elevated troponin, no chest pain, SOB 2/2 wheezing x 3 days * BSA: 2.0 m2 * The study was technically adequate. * -- Conclusions -- * No regional wall motion abnormalities noted. * The LV Ejection Fraction = 65-70%. * The aortic valve is trileaflet. * Aortic valve regurgitaiton is present, but not well quantitated on this study. * Consider cardiology consult for clinical evaluation and possible VERNON if indicated. * Aortic stenosis is absent. * Grade I diastolic dysfunction, (abnormal relaxation pattern). Procedure Details * A complete two-dimensional transthoracic echocardiogram was performed (2D, M-mode, Doppler and color flow Doppler). Left Ventricle * The left ventricle is normal in size. * There is normal left ventricular wall thickness. * Left ventricular systolic function is normal. * Ejection Fraction = 65-70%. * The left ventricular wall motion is normal. * No regional wall motion abnormalities noted. Right Ventricle * The right ventricle is normal size. * The right ventricular systolic function is normal as assessed by tricuspid annular plane systolic excursion (TAPSE) (normal >1.5 cm). Atria * The left atrial size is normal. * Right atrial size is normal. * There is no evidence of atrial septal defect, but resolution does not allow assessment for a patent foramen ovale. Mitral Valve * The mitral valve is normal. * There is no mitral valve stenosis. * Significant mitral regurgitation is absent. Tricuspid Valve * The tricuspid valve is normal. * There is no tricuspid stenosis. * Significant tricuspid regurgitation is absent. Aortic Valve * The aortic valve is trileaflet. * Aortic stenosis is absent. * Aortic valve regurgitaiton is present, but not well quantitated on this study. Consider cardiology consult for clinical evaluation and possible VERNON if indicated. Pulmonic Valve * The pulmonary valve is not well seen, but the Doppler examination is normal without significant regurgitation or stenosis. Great Vessels * The aortic root and proximal ascending aorta are normal sized. Pericardium/Pleural * There is no pericardial effusion. Great Vessels * Normal inferior vena cava diameter and respiratory variation suggests normal central venous pressure. Left Ventricular Diastolic Function * Grade I diastolic dysfunction, (abnormal relaxation pattern). MMode 2D Measurements and Calculations IVSd 1.4 cm LVIDd 4.4 cm LVIDs 2.8 cm LVPWd 1.1 cm IVS/LVPW 1.2 FS 35.9 % EDV(Teich) 85.8 ml ESV(Teich) 29.4 ml EF(Teich) 65.8 % EDV(cubed) 82.8 ml ESV(cubed) 21.8 ml EF(cubed) 73.7 % LV mass(C)d 209.9 grams LV mass(C)dI 105.8 grams/m\S\2 SV(Teich) 56.4 ml SI(Teich) 28.4 ml/m\S\2 SV(cubed) 61.1 ml SI(cubed) 30.8 ml/m\S\2 Ao root diam 4.0 cm Ao root area 12.8 cm\S\2 ACS 2.4 cm LA dimension 3.6 cm asc Aorta Diam 3.6 cm LA/Ao 0.90 LVOT diam 1.9 cm LVOT area 2.9 cm\S\2 LVAd ap4 27.8 cm\S\2 LVLd ap4 7.4 cm EDV(MOD-sp4) 87.5 ml EDV(sp4-el) 88.5 ml LVAs ap4 15.2 cm\S\2 LVLs ap4 6.5 cm ESV(MOD-sp4) 30.9 ml ESV(sp4-el) 30.3 ml EF(MOD-sp4) 64.7 % EF(sp4-el) 65.8 % LVAd ap2 29.0 cm\S\2 LVLd ap2 7.2 cm EDV(MOD-sp2) 98.9 ml EDV(sp2-el) 99.1 ml LVAs ap2 16.0 cm\S\2 LVLs ap2 6.0 cm ESV(MOD-sp2) 37.6 ml ESV(sp2-el) 36.4 ml EF(MOD-sp2) 62.0 % EF(sp2-el) 63.3 % LVLd %diff -2.69 % EDV(MOD-bp) 93.9 ml LVLs %diff -9.08 % ESV(MOD-bp) 34.2 ml EF(MOD-bp) 63.5 % SV(MOD-sp4) 56.6 ml SI(MOD-sp4) 28.5 ml/m\S\2 SV(MOD-sp2) 61.3 ml SI(MOD-sp2) 30.9 ml/m\S\2 SV(MOD-bp) 59.7 ml SI(MOD-bp) 30.1 ml/m\S\2 SV(sp4-el) 58.2 ml SI(sp4-el) 29.3 ml/m\S\2 SV(sp2-el) 62.8 ml SI(sp2-el) 31.6 ml/m\S\2 Doppler Measurements and Calculations MV E max radha 93.1 cm/sec MV A max radha 133.4 cm/sec MV E/A 0.70 MV dec time 0.29 sec Ao V2 max 179.2 cm/sec Ao max PG 12.8 mmHg Ao max PG (full) 1.6 mmHg RAMON(V,A) 2.8 cm\S\2 RAMON(V,D) 2.8 cm\S\2 AI max radha 430.3 cm/sec AI max PG 74.1 mmHg AI dec slope 377.2 cm/sec\S\2 AI P1/2t 334.1 msec LV V1 max PG 11.3 mmHg LV V1 max 167.7 cm/sec PA V2 max 126.2 cm/sec PA max PG 6.4 mmHg PA acc slope 564.8 cm/sec\S\2 PA acc time 0.11 sec TR max radha 221.3 cm/sec PA pr(Accel) 31.5 mmHg
[2017-02-03 17:03] LABS: CKMB/CK RATIO 2.8 (0-3.0)
[2017-02-03] MEDS: ACETAMINOPHEN 325 MG TAB PO PRN (18:05)
[2017-02-03] MEDS: GUAIFENESIN/CODEINE 200MG/20MG 10ML UDC PO PRN (18:44)
[2017-02-03 20:23] LABS: INFLUENZA A PCR Neg for Influ A (NEG); INFLUENZA B PCR Neg for Influ B (NEG)
[2017-02-03 23:17] LABS: CKMB/CK RATIO 2.7 (0-3.0)
[2017-02-04] VITALS (15 sets, daily range): BP systolic 133–191; BP diastolic 68–80; PULSE 63–87; TEMP 36.4–36.8; O2SAT 92–99
[2017-02-04] MEDS: ALBUT/IPRATROP 3MG/0.5MG NEB 3 ML VIAL INH SCH ×5 (06:59→19:06)
[2017-02-04] MEDS: CHOLECALCIFEROL 1000 INTER.UNIT TAB PO SCH (07:39)
[2017-02-04] MEDS: PANTOprazole SOD 40 MG TAB PO SCH (07:39)
[2017-02-04] MEDS: LISINOPRIL 5 MG TAB PO SCH (07:39)
[2017-02-04] MEDS: CARVEDILOL 3.125 MG TAB PO SCH (07:39)
[2017-02-04] MEDS: ASPIRIN 81 MG ECTAB PO SCH (07:39)
[2017-02-04] MEDS: ATORVASTATIN 40 MG TAB PO SCH (07:39)
[2017-02-04] MEDS: SERTRALINE HCL 100 MG TAB PO SCH (07:39)
[2017-02-04] MEDS: FUROSEMIDE 20 MG TAB PO SCH (07:39)
[2017-02-04] MEDS: MULTIVITAMIN TAB PO SCH (07:39)
[2017-02-04] MEDS: METHYLPREDNISOLONE IV 40 MG in SYRINGE 0 ML IV SCH ×2 (07:39→16:41)
[2017-02-04] MEDS: ENOXAPARIN 40 MG/0.4 ML SYR SC SCH (07:40)
[2017-02-04 07:52] LABS: HEMATOCRIT 37.3 % (37-47); MEAN CELL VOLUME 95.2 fL (80-100); MEAN CORPUSCULAR HEMOGLOBIN 30.4 pg (25-34); MEAN CORPUSCULAR HGB CONC 31.9 g/dl (32-36); MEAN PLATELET VOLUME 10.3 fL (7.4-10.4); PLATELET COUNT 193 K/uL (130-400); RED BLOOD COUNT 3.92 M/uL (4.2-5.4); WHITE BLOOD COUNT 10.93 K/uL (4.8-10.8)
[2017-02-04 08:24] LABS: CALCIUM 10.2 mg/dl (8.5-10.1); CREATININE 0.84 mg/dl (0.60-1.20)
[2017-02-04 08:27] LABS: CHOLESTEROL/HDL RATIO 2.3
[2017-02-04] MEDS: LEVOFLOXACIN 750 MG TAB PO SCH (11:15)
[2017-02-04] MEDS: GUAIFENESIN/CODEINE 200MG/20MG 10ML UDC PO PRN (13:27)
[2017-02-04] MEDS ORDERED: MAGNESIUM HYDROXIDE SUSP 30 ML UDC PO PRN (16:30)
--- NOTE | 2017-02-04 16:43 | Progress Note ---
Internal Med Progress Note Date of Service: Feb 04, 2017. Provider Documentation: SUBJECTIVE: continues to be short of breath , KNIGHT , mentions of having episodes of cough causing her to have pain /discomfort on both sided having productive sputum with whitish mucous no fever or chills no complain of chest heaviness, no palpitation or dizzy spell OBJECTIVE: Vital Signs-as noted below Exam: General-elderly female, pleasant , Eyes-sclera non icteric ENT-NAD Neck-no JVD Lungs-very poor air entry ,diffuse expiratory wheeze Heart-regular S1/S2 Abdomen-soft, non tender Extremities-no lower ext edema Neuro-AAO x3, no focal deficit Lab data as noted below. ASSESSMENT & PLAN: COPD EXACERBATION presented with Cough /SOB for past 3 days , no fever or chills normal white count on admission , mild elevated noted today possibly due to steroids has baseline COPD , on 2 L 02 at night follows with Pulmonology Dr Lopez pt tried her Rescue Kit with Z pack and oral prednisone -no improvement, her symptom improve after IV Solu Medrol and neb tx still significantly dyspnea-requiring 2 L 02 cont , getting very SOB while ambulating to short distance ( going to bathroom ) increased 02 to 3 L /can be titrated up to 4 L on ambulation cont Neb tx QID scheduled and Q2 PRN empiric Abx with Levaquin cont on IV Solu medrol /added PRN Ativan as pt mentions of having anxiety / insomnia while on high dose of Steroids pt had Bronchoscopy in 2011 -cytology showed rare atypical Sq cell as further imaging CT chest did not show any abnormal pathology -no further investigation was done Pulmonology eval requested CONCERN FOR ASPIRATION : pt mentions of drinking coffee in a hurry few days back and started to have cough which continued till now Cxray mentions basilar infiltrate /vs atelectasis 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 continue with Levaquin speech eval requested repeat CXray in Am MILD ELEVATION OF TROPONIN ; possible demand ischemia in setting of hypoxia /COPD exacerbation echo Shows no wall motion abnormality pt will be continued with out pt meds no further cardiac testing needed D/C Cardiac monitoring HARMEET cont CPAP at night pt can use her own device CHRONIC DIASTOLIC CHF : clinically stable ECHO shows stable EF pt will be continued her out pt meds for CHF STAGE 3 CKD : renal function at baseline S.P AORTIC VALVE REPLACEMENT : s/p aortic dissection in past s/p repair with paralyzed phrenic nerve and subsequent R hemidiaphragm elevation follows with Cardiology Dr Rojas at [facility] stable form Cardiac stand point ECHO : No regional wall motion abnormalities noted. The LV Ejection Fraction = 65-70%. The aortic valve is trileaflet. Aortic valve regurgitation is present, but not well quantitated on this study. Aortic stenosis is absent. Grade I diastolic dysfunction, (abnormal relaxation pattern). DVT PROPHYLAXIS Moderated risk Sub Q Lovenox DISPOSITION expected to be discharged home when medically stable PT/OT eval requested prior to discharge Social service consulted for discharge planning Daughter Lorraine given update at bedside Vital Signs: Date Time Temp Pulse Resp B/P (MAP) Pulse Ox O2 Delivery O2 Flow Rate FiO2 02/04/17 15:28 68 16 95 Nasal Cannula 1.0 02/04/17 12:00 Nasal Cannula 2.0 02/04/17 11:11 77 16 97 Nasal Cannula 2.0 02/04/17 11:07 36.4 66 20 176/80 (112) 97 Nasal Cannula 2.0 02/04/17 08:00 Nasal Cannula 2.0 02/04/17 07:35 36.5 75 20 159/68 (98) 92 Nasal Cannula 2.0 02/04/17 07:03 63 16 97 Room Air 02/04/17 05:08 36.4 71 17 191/73 (112) 99 CPAP 02/04/17 04:00 Nasal Cannula 2.0 CPAP 02/04/17 00:19 36.6 68 19 153/70 (97) 98 CPAP 02/04/17 00:00 Nasal Cannula 2.0 CPAP 02/04/17 00:00 97 Nasal Cannula 2.0 02/03/17 21:21 88 18 96 CPAP 2.0 02/03/17 21:21 88 96 2.0 02/03/17 20:00 94 Nasal Cannula 2.0 02/03/17 19:38 36.8 61 18 161/77 (105) 96 Room Air 02/03/17 19:08 65 16 95 Nasal Cannula 2.0 Lab Results: Results Past 24 Hours Test 02/03/17 18:00 02/03/17 22:04 02/04/17 07:27 Range/Units Influenza Type A (RT-PCR) Neg for Influ A NEG Influenza Type B (RT-PCR) Neg for Influ B NEG Total Creatine Kinase 92 26-192 U/L Creatine Kinase MB 2.5 0.5-3.6 ng/ml Creatine Kinase MB Ratio 2.7 0-3.0 Troponin I 0.147 0-0.045 ng/ml White Blood Count 10.93 4.8-10.8 K/uL Red Blood Count 3.92 4.2-5.4 M/uL Hemoglobin 11.9 12.0-16.0 g/dL Hematocrit 37.3 37-47 % Mean Corpuscular Volume 95.2 80-100 fL Mean Corpuscular Hemoglobin 30.4 25-34 pg Mean Corpuscular Hemoglobin Concent 31.9 32-36 g/dl RDW Standard Deviation 51.0 36.4-46.3 fL RDW Coefficient of Variation 14.7 11.5-14.5 % Platelet Count 193 130-400 K/uL Mean Platelet Volume 10.3 7.4-10.4 fL Sodium Level 141 136-145 mmol/L Potassium Level 4.0 3.5-5.1 mmol/L Chloride Level 106 98-107 mmol/L Carbon Dioxide Level 25 21-32 mmol/L Anion Gap 10.0 3-11 mmol/L Blood Urea Nitrogen 19 7-18 mg/dl Creatinine 0.84 0.60-1.20 mg/dl Est Creatinine Clear Calc Drug Dose 57.0 ml/min Estimated GFR () 75.5 Estimated GFR (Non- 65.2 BUN/Creatinine Ratio 23.0 10-20 Random Glucose 107 70-99 mg/dl Calcium Level 10.2 8.5-10.1 mg/dl Triglycerides Level 88 0-150 mg/dl Cholesterol Level 161 0-200 mg/dl HDL Cholesterol 71 mg/dl LDL Cholesterol, Calculated 72 mg/dl VLDL Cholesterol, Calculated 18 mg/dl Cholesterol/HDL Ratio 2.3
[2017-02-04] MEDS ORDERED: CLONIDINE HCL 0.1 MG TAB PO PRN (17:15)
[2017-02-04] MEDS: ACETAMINOPHEN 325 MG TAB PO PRN (20:52)
[2017-02-05] VITALS (8 sets, daily range): BP systolic 157–163; BP diastolic 68–80; PULSE 53–77; TEMP 36.6–36.9; O2SAT 90–96
[2017-02-05] MEDS: METHYLPREDNISOLONE IV 40 MG in SYRINGE 0 ML IV SCH ×3 (00:40→20:59)
[2017-02-05] MEDS: ALBUT/IPRATROP 3MG/0.5MG NEB 3 ML VIAL INH SCH ×4 (07:01→19:55)
--- NOTE | 2017-02-05 07:25 | DIAGNOSTIC IMAGING REPORT ---
CHEST ONE VIEW PORTABLE CLINICAL HISTORY: COPD dyspnea COMPARISON STUDY: 02/03/2017 FINDINGS: Mild stable cardiomegaly. Prior median sternotomy. Mild improvement in the prominence of pulmonary vasculature. Chronic blunting right lateral gastric angle. Mild chronic elevation right hemidiaphragm. IMPRESSION: Improving components of congestive failure The above report was generated using voice recognition software. It may contain grammatical, syntax or spelling errors. Electronically signed by: Saad Gomez M.D. 02/05/2017 7:24 AM Dictated Date/Time: 02/05/2017 7:23 AM
[2017-02-05 07:50] LABS: CREATININE 1.1 mg/dl (0.60-1.20)
[2017-02-05] MEDS: FUROSEMIDE 20 MG TAB PO SCH (08:29)
[2017-02-05] MEDS: LISINOPRIL 5 MG TAB PO SCH (08:29)
[2017-02-05] MEDS: MULTIVITAMIN TAB PO SCH (08:29)
[2017-02-05] MEDS: BENZONATATE 100MG CAP PO PRN (08:29)
[2017-02-05] MEDS: ASPIRIN 81 MG ECTAB PO SCH (08:29)
[2017-02-05] MEDS: CHOLECALCIFEROL 1000 INTER.UNIT TAB PO SCH (08:29)
[2017-02-05] MEDS: SERTRALINE HCL 100 MG TAB PO SCH (08:29)
[2017-02-05] MEDS: PANTOprazole SOD 40 MG TAB PO SCH (08:29)
[2017-02-05] MEDS: ATORVASTATIN 40 MG TAB PO SCH (08:29)
[2017-02-05] MEDS: ENOXAPARIN 40 MG/0.4 ML SYR SC SCH (08:30)
[2017-02-05] MEDS: CARVEDILOL 3.125 MG TAB PO SCH (08:30)
--- NOTE | 2017-02-05 09:15 | PULMONARY CONSULTATION ---
DATE OF CONSULTATION: 02/05/2017 TIME: 08:15 a.m. REPORT OF CONSULTATION: The patient was seen in room 286, bed 1. She is an 81-year-old female who has a history of COPD. She states that her breathing problems all began after having had a thoracic aortic aneurysm repair in 2009. She denies having respiratory issues before then. Since then, she has had 7 exacerbations. The patient refers to these as pneumonias, but it is not that pneumonias were found on x-rays. Most of these were treated as an outpatient. This appears to be her third hospital exacerbation. The first was in June of 2011. The second was in June of 2013. This would be the 3rd. She relates that she was in her usual state until 5 days ago. At that time, she was drinking some coffee and she had a little bit of the coffee swallow in the wrong way. This is very unusual she states. She did develop a coughing spell. She happened to be going to see her alternative medicine practitioner, Dr. Rojas, on that day. She said he did not comment anything about her lungs. Later that day, the patient decided she was going to start taking her rescue kit, which she keeps at home. Her kit consists of some prednisone and doxycycline. This had been prescribed by Dr. 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 She states she did not improve significantly. Her cough became progressive. She had a sore throat. She has been expectorating mucus, which is white in color. She describes it as looking like marshmallows. She has not had any fevers. She did have some sweats. Her throat is still sore with coughing. Her ribs on each side are sore because of coughing. She is having urinary stress incontinence related to the cough. The patient relates that many years ago, she had bronchoscopy done by Dr. Varela in an attempt to clear out her secretions. As mentioned above, she had a thoracic aortic aneurysm repair in 2009. She has developed some phrenic nerve paralysis reportedly on the right side since that surgery. As noted, she feels all of these respiratory issues began after that. She was a smoker from age 18 until age 74. However, she insists that she only smoked about a pack of cigarettes per week. She did have secondhand smoke from her . Her appetite is slightly decreased. She is not having any nausea, however. She denies that she typically has difficulty swallowing. This includes solids or liquids. The patient also has sleep apnea. She wears CPAP at night. She also reports 2 liters of oxygen into the CPAP. At home for her breathing, she takes Ventolin HFA on an as needed basis. She has nebulizer treatments with levalbuterol that she just uses as needed. She does take Dulera 200/5 two puffs b.i.d. and she takes tiotropium daily. She has a history of reflux, for which she is taking pantoprazole. She denies any heartburn at this time. PAST MEDICAL HISTORY: 1. COPD as noted. 2. Elevation of the right hemidiaphragm. 3. Sleep apnea. 4. Anxiety. 5. Depression. 6. Chronic kidney disease stage III. 7. Diastolic CHF. 8. Diverticular disease. 9. Hypertension. 10. Hyperlipidemia. 11. Osteoporosis. 12. Childbirth x3. PAST SURGICAL HISTORY: 1. Thoracic aortic aneurysm repair. 2. Right and left cataract surgeries. SOCIAL HISTORY: Tobacco as noted above. ETOH -- never. ALLERGIES: BACITRACIN, NEOMYCIN AND POLYMYXIN. OCCUPATIONAL HISTORY: The patient worked in a [employer] for many years. FAMILY HISTORY: Mother had colon cancer and diabetes. Father had coronary artery disease. REVIEW OF SYSTEMS: Negative except for the above-mentioned complaints. Ten systems were reviewed. PHYSICAL EXAMINATION: GENERAL: The patient is a pleasant 81-year-old female who was cooperative, alert and oriented. She was coughing occasionally during the exam. Her BMI is elevated at 33.9. HEENT: Pupils were reactive to light. Implants were noted. Nares were clear. Mouth exam showed a Mallampati grade 3 pharynx. No definite erythema or exudate was noted. NECK: Palpation of the neck reveals no lymph nodes. CHEST: Showed a mild kyphosis. VITAL SIGNS: Temperature is 36.7 this morning. She has not had any fevers during this hospital stay. Heart rate was 70 beats per minute. She did have some extrasystoles. Blood pressure is 163/80. LUNGS: Rhonchi were heard bilaterally. Respiratory rate was 20 breaths per minute. Oxygen saturation was 91% on room air taken by myself. ABDOMEN: Obese. Bowel sounds were present. There was no tenderness to palpation, masses, or organomegaly. EXTREMITIES: Showed no cyanosis, clubbing or edema. DIAGNOSTIC STUDIES: The patient's chest x-ray on admission showed cardiomegaly. There is mild vascular prominence. There was some increased opacity in the area of the right hemidiaphragm. The diaphragm is noted to be elevated and she has some chronic scarring in that area. Acute inflammatory process would be difficult to exclude. She had a followup x-ray today that reports improvement in the vascular accentuation. The area of the right hemidiaphragm was much better seen than it had been previously. No infiltrates are noted. LABORATORY DATA: CBC done yesterday showed a white count of 10.93, hemoglobin was 11.9 and platelets were 193,000. Coags were normal. Electrolytes show sodium 141, potassium 4.0, chloride 106, and bicarbonate 25. BUN was 19 with a creatinine of 0.84. Troponins were mildly elevated with a maximum of 0.158. Creatinine this morning had increased up to 1.1. IMPRESSIONS: 1. Chronic obstructive pulmonary disease with exacerbation. 2. Elevation of the right hemidiaphragm -- chronic. 3. Obstructive sleep apnea. COMMENTS AND RECOMMENDATIONS: The patient states she is clinically improved. She is still moderately symptomatic. Clearing her secretions seems to be somewhat of an issue. She is getting DuoNeb treatments 4 times per day. She is also on levofloxacin. She is getting methylprednisolone 40 mg IV q. 8 hours. In order to aid with her clearing the secretions, I will order a flutter valve for her. We will request for a vibration vest and see if this helps. I would try to increase the patient's ambulation. I believe her steroids could be cut back somewhat at this time, although she is still modestly symptomatic. We will start her on Mucinex if she is not already on it. Thank you for asking me to assist in her care. PEDRO
[2017-02-05] MEDS: LEVOFLOXACIN 750 MG TAB PO SCH (10:41)
[2017-02-05] MEDS: GUAIFENESIN 600 MG TABCR PO SCH ×2 (10:41→20:58)
--- NOTE | 2017-02-05 17:34 | Progress Note ---
Internal Med Progress Note Date of Service: Feb 05, 2017. Provider Documentation: SUBJECTIVE: feels a bit better less SOB , cough has improved no fever or chills OBJECTIVE: Vital Signs-as noted below Exam: General-elderly female, pleasant , Eyes-sclera non icteric ENT-NAD Neck-no JVD Lungs-minimum wheeze Heart-regular S1/S2 Abdomen-soft, non tender Extremities-no lower ext edema Neuro-AAO x3, no focal deficit Lab data as noted below. ASSESSMENT & PLAN: COPD EXACERBATION presented with Cough /SOB for past 3 days , no fever or chills normal white count on admission , mild elevated noted today possibly due to steroids has baseline COPD , on 2 L 02 at night follows with Pulmonology Dr Lopez pt tried her Rescue Kit with Z pack and oral prednisone -no improvement, her symptom improve after IV Solu Medrol and neb tx will start to wean down IV solu Medrol transition to PO Prednisone in AM cont Neb tx QID scheduled and Q2 PRN empiric Abx with Levaquin pt had Bronchoscopy in 2011 -cytology showed rare atypical Sq cell as further imaging CT chest did not show any abnormal pathology -no further investigation was done Pulmonology eval requested-appreciate input CONCERN FOR ASPIRATION : pt mentions of drinking coffee in a hurry few days back and started to have cough Cxray mentions basilar infiltrate /vs atelectasis 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 Prior median sternotomy. Mild improvement in the prominence of pulmonary vasculature. Chronic blunting right lateral gastric angle. Mild chronic elevation right hemidiaphragm. MILD ELEVATION OF TROPONIN ; no complain of chest pain no angina symptom possible demand ischemia in setting of hypoxia /COPD exacerbation echo Shows no wall motion abnormality pt will be continued with out pt meds no further cardiac testing needed HARMEET cont CPAP at night pt can use her own device CHRONIC DIASTOLIC CHF : clinically stable ECHO shows stable EF pt will be continued her out pt meds for CHF STAGE 3 CKD : renal function at baseline S.P AORTIC VALVE REPLACEMENT : s/p aortic dissection in past s/p repair with paralyzed phrenic nerve and subsequent R hemidiaphragm elevation follows with Cardiology Dr Rojas at [facility] stable form Cardiac stand point ECHO : No regional wall motion abnormalities noted. The LV Ejection Fraction = 65-70%. The aortic valve is trileaflet. Aortic valve regurgitation is present, but not well quantitated on this study. Aortic stenosis is absent. Grade I diastolic dysfunction, (abnormal relaxation pattern). DVT PROPHYLAXIS Moderated risk Sub Q Lovenox DISPOSITION expected to be discharged home when medically stable PT/OT eval requested prior to discharge Social service consulted for discharge planning Vital Signs: Date Time Temp Pulse Resp B/P (MAP) Pulse Ox O2 Delivery O2 Flow Rate FiO2 02/05/17 19:57 67 16 96 Nasal Cannula 2.0 02/05/17 16:20 Room Air 02/05/17 15:49 36.6 67 18 157/73 (101) 96 Nasal Cannula 2.0 02/05/17 14:42 74 16 94 Room Air 02/05/17 11:17 53 16 90 Room Air 02/05/17 08:00 Room Air 02/05/17 07:30 36.9 72 18 162/68 (99) 94 Room Air 02/05/17 07:03 70 16 94 Room Air 02/05/17 00:00 CPAP 2.0 02/05/17 00:00 36.7 72 18 163/80 (107) 93 CPAP 2.0 02/04/17 22:22 77 95 2.0 Lab Results: Results Past 24 Hours Test 02/05/17 06:57 Range/Units Creatinine 1.10 0.60-1.20 mg/dl Est Creatinine Clear Calc Drug Dose 43.5 ml/min Estimated GFR () 54.5 Estimated GFR (Non- 47.0
[2017-02-05] MEDS: TRAMADOL HCL 50 MG TAB PO PRN (21:15)
[2017-02-06] VITALS (12 sets, daily range): BP systolic 122–152; BP diastolic 72–90; PULSE 62–87; TEMP 36.7–37; O2SAT 88–96
[2017-02-06 06:40] LABS: CREATININE 1.2 mg/dl (0.60-1.20)
[2017-02-06] MEDS: ALBUT/IPRATROP 3MG/0.5MG NEB 3 ML VIAL INH SCH ×4 (07:08→18:55)
[2017-02-06] MEDS: FUROSEMIDE 20 MG TAB PO SCH (08:30)
[2017-02-06] MEDS: METHYLPREDNISOLONE IV 40 MG in SYRINGE 0 ML IV SCH ×2 (08:30→20:28)
[2017-02-06] MEDS: PANTOprazole SOD 40 MG TAB PO SCH (08:30)
[2017-02-06] MEDS: MULTIVITAMIN TAB PO SCH (08:30)
[2017-02-06] MEDS: CARVEDILOL 3.125 MG TAB PO SCH (08:30)
[2017-02-06] MEDS: ATORVASTATIN 40 MG TAB PO SCH (08:30)
[2017-02-06] MEDS: ASPIRIN 81 MG ECTAB PO SCH (08:30)
[2017-02-06] MEDS: CHOLECALCIFEROL 1000 INTER.UNIT TAB PO SCH (08:30)
[2017-02-06] MEDS: LISINOPRIL 5 MG TAB PO SCH (08:31)
[2017-02-06] MEDS: BENZONATATE 100MG CAP PO PRN ×2 (08:31→20:27)
[2017-02-06] MEDS: ENOXAPARIN 40 MG/0.4 ML SYR SC SCH (08:31)
[2017-02-06] MEDS: SERTRALINE HCL 100 MG TAB PO SCH (08:31)
[2017-02-06] MEDS: GUAIFENESIN 600 MG TABCR PO SCH ×2 (09:55→20:28)
--- NOTE | 2017-02-06 13:29 | Pulmonology Progress Note ---
Pulmonary Progress Note Date of Service Feb 06, 2017. Attending Dr. Jurado Subjective Patient is an 81 yo female with COPD exacerbation, right hemidiaphragm elevation -chronic, and HARMEET. She states that she was starting to feel a little bit better yesterday, but then she was place on a nebulizer treatment and the vibration vest. She states that those things together really made her tired. This morning , she has had more difficulty expectorating sputum. She does state that she continues to have some white, 'marshmallow' like sputum with some very mild discoloration this morning. She continues to have some mild to moderate SOB at rest. Denies chest pain. She is having some rib soreness from coughing. The flutter valve is helping some but also makes her cough. Her IV SoluMedrol was decreased to 40 mg Q12 H today. She seems to be tolerating this decrease in therapy. She also continues Levaquin, Duonebs, Mucinex, & Robitussin. CXR yesterday showed improving components of congestive failure. Image viewed. Note elevated right hemidiaphragm. Labs reviewed. Creatinine 1.20 Objective VS reviewed. Patient on CPAP overnight. On room air this morning and SaO2 decreased to 88%- she was then placed on 1 L O2 via nasal cannula. SaO2 has been 94%. General: Patient is awake, alert, cooperative. Obese Head: Normocephalic, Atraumatic. ENT: PERRLA, No discharge, EOMI, Sclera normal Neck: Normal ROM. Trachea midline. No stridor Respiratory: Deep breath on and off during exam. Nasal cannula O2 in place currently at 1L. Cardiovascular: Regular rate and rhythm. No murmur appreciate. Normal S1/S2. Abdomen: Nontender to palpation. Normal bowel sounds hear throughout. No guarding. Abdomen is soft and nontender Back: Normal inspection. No tenderness to palpation Extremities: No edema, cyanosis. Normal ROM Neuro: Alert, Oriented x 3. CN II-XII grossly intact. Sensation and motor function grossly intact. Psych: Mood and affect are normal. Assessment & Plan COPD Exacerbation HARMEET Elevated right-hemidiaphragm -Patient continues to have SOB and difficulty moving secretions, but her O2 supplementation need has decreased. Vibration vest, flutter valve, and Mucinex appear to be helping slightly. She continues on IV Solu-Medrol 40 mg Q12h. Will continue that dose for today, and possibly tomorrow. Hopefully will be able to transition to PO Prednisone and taper as an outpatient, but will await improvement first. -Continue aggressive pulmonary toilet -Continue current steroids and antibiotics. Likely will taper over the day or two pending improvement -Continue O2 supplementation PRN to keep SaO2 >88% -Continue CPAP at night Data Medications: Current Inpatient Medications Medications (Trade) Dose Ordered Sig/Maricel Route Start Time Stop Time Status Last Admin Dose Admin Enoxaparin Sodium (Lovenox Inj) 40 mg DAILY SC 02/04/17 09:00 03/06/17 08:59 02/06/17 08:31 40 MG Acetaminophen (Tylenol Tab) 650 mg Q4H PRN PO 02/03/17 14:30 03/05/17 14:29 02/04/17 20:52 650 MG Ondansetron HCl (Zofran Inj) 4 mg Q6H PRN IV 02/03/17 14:30 03/05/17 14:29 Nitroglycerin (Nitrostat Tab) 0.4 mg UD PRN SL 02/03/17 14:30 03/05/17 14:29 Morphine Sulfate (MoRPHine SULFATE INJ) 2 mg Q30M PRN IV 02/03/17 14:30 02/17/17 14:29 Polyethylene (Miralax Powder Packet) 17 gm DAILY PRN PO 02/03/17 14:30 03/05/17 14:29 Levofloxacin (Consult) 1 ea UD N/A 02/03/17 14:38 03/05/17 14:37 Codeine Phosphate/ Guaifenesin (Robitussin-AC Sugar Free Syrup) 10 ml Q6H PRN PO 02/03/17 14:45 03/05/17 14:44 02/04/17 13:27 10 ML Aspirin (Ecotrin Tab) 81 mg DAILY PO 02/04/17 09:00 03/06/17 08:59 02/06/17 08:30 81 MG Atorvastatin Calcium (Lipitor Tab) 40 mg DAILY PO 02/04/17 09:00 03/06/17 08:59 02/06/17 08:30 40 MG Carvedilol (Coreg Tab) 3.125 mg DAILY PO 02/04/17 09:00 03/06/17 08:59 02/06/17 08:30 3.125 MG Cholecalciferol (Vitamin D Tab) 1,000 inter.unit DAILY PO 02/04/17 09:00 03/06/17 08:59 02/06/17 08:30 1,000 INTER.UNIT Furosemide (Lasix Tab) 60 mg DAILY PO 02/04/17 09:00 03/06/17 08:59 02/06/17 08:30 60 MG Lisinopril (Zestril Tab) 5 mg DAILY PO 02/04/17 09:00 03/06/17 08:59 02/06/17 08:31 5 MG Lorazepam (Ativan Tab) 0.5 mg TID PRN PO 02/03/17 14:45 03/05/17 14:44 Multivitamins (Multivitamin Tab) 1 tab DAILY PO 02/04/17 09:00 03/06/17 08:59 02/06/17 08:30 1 TAB Pantoprazole Sodium (Protonix Tab) 40 mg DAILY PO 02/04/17 09:00 03/06/17 08:59 02/06/17 08:30 40 MG Sertraline HCl (Zoloft Tab) 100 mg DAILY PO 02/04/17 09:00 03/06/17 08:59 02/06/17 08:31 100 MG Tramadol HCl (Ultram Tab) 50 mg Q6H PRN PO 02/03/17 14:45 03/05/17 14:44 02/05/17 21:15 50 MG Albuterol/ Ipratropium (Duoneb) 3 ml QIDR INH 02/04/17 16:30 03/06/17 16:29 02/06/17 11:08 3 ML Benzonatate (Tessalon Perles Cap) 100 mg TID PRN PO 02/04/17 16:30 03/06/17 16:29 02/06/17 08:31 100 MG Magnesium Hydroxide (Milk Of Magnesia Susp) 30 ml Q6H PRN PO 02/04/17 16:30 03/06/17 16:29 02/04/17 20:52 30 ML Clonidine HCl (Catapres Tab) 0.1 mg Q8 PRN PO 02/04/17 17:15 03/06/17 17:14 9/23/17 17:29 0.1 MG Guaifenesin (Mucinex Contr Rel Tab) 1,200 mg Q12 PO 02/05/17 10:00 03/07/17 09:59 02/06/17 09:55 1,200 MG Methylprednisolone Sodium Succinate 40 mg/Syringe 0.64 ml @ 1.5 mls/min Q12 IV 02/05/17 21:00 03/05/17 16:29 02/06/17 08:30 1.5 MLS/MIN Levofloxacin (Levaquin Tab) 750 mg Q2D@1100 PO 02/07/17 11:00 02/10/17 10:59 Vital Signs: Date Time Temp Pulse Resp B/P (MAP) Pulse Ox O2 Delivery O2 Flow Rate FiO2 02/06/17 11:12 71 15 94 Nasal Cannula 1.0 02/06/17 09:30 91 Room Air 02/06/17 09:24 91 Room Air 02/06/17 08:03 36.7 77 24 152/72 (98) 88 Room Air 02/06/17 08:00 Room Air 02/06/17 07:08 62 92 2.0 02/06/17 07:08 62 16 92 BiPAP/CPAP 2.0 02/06/17 00:11 37.0 77 18 151/90 (110) 96 CPAP 02/06/17 00:00 Room Air 02/05/17 22:12 77 95 2.0 02/05/17 19:57 67 16 96 Nasal Cannula 2.0 02/05/17 16:20 Room Air 02/05/17 15:49 36.6 67 18 157/73 (101) 96 Nasal Cannula 2.0 02/05/17 14:42 74 16 94 Room Air Laboratory Results: Last 24 Hours Test 02/06/17 05:42 Creatinine 1.20 mg/dl Est Creatinine Clear Calc Drug Dose 39.9 ml/min Estimated GFR () 49.1 Estimated GFR (Non- 42.4
[2017-02-06] MEDS ORDERED: SODIUM CHLORIDE 0.65% NA SOLN 45 ML (OCEAN) ONE (21:53)
[2017-02-06] MEDS: GUAIFENESIN/CODEINE 200MG/20MG 10ML UDC PO PRN (21:54)
[2017-02-06] MEDS: TRAMADOL HCL 50 MG TAB PO PRN (21:58)
[2017-02-06] MEDS ORDERED: SODIUM CHLORIDE 0.65% NA SOLN 45 ML (OCEAN) PRN (22:00)
--- NOTE | 2017-02-06 22:48 | Progress Note ---
Internal Med Progress Note Date of Service: Feb 06, 2017. Provider Documentation: SUBJECTIVE: pt started on vibration vest , Neb tx /flutter valve as per pulmonology mentions of feeling better today still having cough with whitish sputum no fever or chills OBJECTIVE: Vital Signs-as noted below Exam: General-elderly female, pleasant , Eyes-sclera non icteric ENT-NAD Neck-no JVD Lungs-no audible wheeze , improved air entry Heart-regular S1/S2 Abdomen-soft, non tender Extremities-no lower ext edema Neuro-AAO x3, no focal deficit Lab data as noted below. ASSESSMENT & PLAN: COPD EXACERBATION presented with Cough /SOB for past 3 days , no fever or chills normal white count on admission , mild elevated noted today possibly due to steroids has baseline COPD , on 2 L 02 at night follows with Pulmonology Dr Lopez pt tried her Rescue Kit with Z pack and oral prednisone -no improvement, her symptom improve after IV Solu Medrol and neb tx will start to wean down IV solu Medrol transition to PO Prednisone i cont Neb tx QID scheduled and Q2 PRN empiric Abx with Levaquin pt had Bronchoscopy in 2011 -cytology showed rare atypical Sq cell as further imaging CT chest did not show any abnormal pathology -no further investigation was done Pulmonology eval requested-appreciate input POSSIBLE ASPIRATION PNEUMONIA pt mentions of drinking coffee in a hurry few days back and started to have cough Cxray mentions basilar infiltrate /vs atelectasis 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 Prior median sternotomy. Mild improvement in the prominence of pulmonary vasculature. Chronic blunting right lateral gastric angle. Mild chronic elevation right hemidiaphragm. 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 The LV Ejection Fraction = 65-70%. The aortic valve is trileaflet. Aortic valve regurgitation is present, but not well quantitated on this study. Aortic stenosis is absent. Grade I diastolic dysfunction, (abnormal relaxation pattern). DVT PROPHYLAXIS Moderated risk Sub Q Lovenox DISPOSITION expected to be discharged home when medically stable PT/OT eval requested prior to discharge Social service consulted for discharge planning Vital Signs: Date Time Temp Pulse Resp B/P (MAP) Pulse Ox O2 Delivery O2 Flow Rate FiO2 02/07/17 00:02 36.8 61 20 156/52 (86) 95 CPAP 02/07/17 00:00 Nasal Cannula 2.0 02/06/17 22:00 68 95 2.0 02/06/17 18:57 83 15 95 Nasal Cannula 2.0 02/06/17 16:00 Nasal Cannula 2.0 02/06/17 15:07 36.9 87 20 122/78 (93) 94 Nasal Cannula 2.0 02/06/17 14:45 73 15 94 Nasal Cannula 2.0 02/06/17 14:35 95 02/06/17 11:12 71 15 94 Nasal Cannula 1.0 02/06/17 09:30 91 Room Air 02/06/17 09:24 91 Room Air 02/06/17 08:03 36.7 77 24 152/72 (98) 88 Room Air 02/06/17 08:00 Room Air 02/06/17 07:08 62 92 2.0 02/06/17 07:08 62 16 92 BiPAP/CPAP 2.0 Lab Results: Results Past 24 Hours Test 02/07/17 05:57 Range/Units
[2017-02-07] VITALS (10 sets, daily range): BP systolic 105–164; BP diastolic 52–74; PULSE 54–82; TEMP 36.3–36.8; O2SAT 91–97
[2017-02-07 07:03] LABS: CREATININE 1.1 mg/dl (0.60-1.20)
[2017-02-07] MEDS: ALBUT/IPRATROP 3MG/0.5MG NEB 3 ML VIAL INH SCH ×4 (07:12→19:22)
[2017-02-07] MEDS: BENZONATATE 100MG CAP PO PRN (07:33)
[2017-02-07] MEDS: GUAIFENESIN 600 MG TABCR PO SCH ×2 (07:34→20:51)
[2017-02-07] MEDS: PANTOprazole SOD 40 MG TAB PO SCH (07:34)
[2017-02-07] MEDS: MULTIVITAMIN TAB PO SCH (07:35)
[2017-02-07] MEDS: ATORVASTATIN 40 MG TAB PO SCH (07:35)
[2017-02-07] MEDS: CARVEDILOL 3.125 MG TAB PO SCH (07:35)
[2017-02-07] MEDS: FUROSEMIDE 20 MG TAB PO SCH (07:35)
[2017-02-07] MEDS: SERTRALINE HCL 100 MG TAB PO SCH (07:35)
[2017-02-07] MEDS: LISINOPRIL 5 MG TAB PO SCH (07:35)
[2017-02-07] MEDS: ASPIRIN 81 MG ECTAB PO SCH (07:35)
[2017-02-07] MEDS: ENOXAPARIN 40 MG/0.4 ML SYR SC SCH (07:36)
[2017-02-07] MEDS: CHOLECALCIFEROL 1000 INTER.UNIT TAB PO SCH (07:36)
[2017-02-07] MEDS: GUAIFENESIN/CODEINE 200MG/20MG 10ML UDC PO PRN ×2 (07:37→20:55)
--- NOTE | 2017-02-07 09:37 | Clinical Documentation Query ---
Dr. GREENFIELD, [facility] : CLINICAL DOCUMENTATION QUERY Patient is an 81 year old female admitted for evaluation and treatment of COPD exacerbation. 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 Clinical Indicators: As above Treatment: Levaquin, pulmonary consultation, flutter valve, solumedrol, Mucinex, Tessalon perles, flutter valve, vibration vest, speech consult, aspiration precautions. Risk Factors: Diaphragmatic paralysis, age Please clarify and document your clinical opinion in the progress notes and discharge summary. Terms such as "probable", "suspected", "likely", "questionable", "possible", or "still to be ruled out" are acceptable. IF IN AGREEMENT, YOU MUST DOCUMENT ABOVE DIAGNOSTIC STATEMENT IN DAILY PROGRESS NOTES AND DISCHARGE SUMMARY. This document is not part of the patient's record. Thank You, Christopher Morris, RN [phone]
--- NOTE | 2017-02-07 10:56 | Pulmonology Progress Note ---
Pulmonary Progress Note Date of Service Feb 07, 2017. Attending Dr. Jurado Subjective Patient is feeling much improved this morning. She continues to use the Chest PT vest, flutter valve, and is expectorating some mucus on and off. She feels that her cough is better this morning. She is overall feeling better. Labs this morning reviewed- stable. Medications reviewed. Changed to PO Prednisone 40 mg daily. Continues Levaquin, Mucinex, Tessalon Perles, and Duoneb. Objective VS reviewed. Patient on CPAP overnight. On room air this morning and SaO2 stable. General: Patient is awake, alert, cooperative. Obese Head: Normocephalic, Atraumatic. ENT: PERRLA, No discharge, EOMI, Sclera normal Neck: Normal ROM. Trachea midline. No stridor Respiratory: Deep breath on and off during exam. Very mild wheeze at bilateral bases. Currently on room air. Cardiovascular: Regular rate and rhythm. No murmur appreciate. Normal S1/S2. Abdomen:Normal bowel sounds hear throughout. Back: Normal inspection. No tenderness to palpation Extremities: No edema, cyanosis. Normal ROM Neuro: Alert, Oriented x 3. CN II-XII grossly intact. Sensation and motor function grossly intact. Psych: Mood and affect are normal. Assessment & Plan COPD Exacerbation HARMEET Elevated right-hemidiaphragm -Patient is feeling better today. She is starting to move some secretions. She is doing well with Chest PT today. -Continue aggressive pulmonary toilet -Changed to PO Prednisone- recommend extended taper -She has completed 5 days of Levaquin- recommend completing 7 days -Continue O2 Supplementation PRN -Continue CPAP at night -Consider 2 step prior to discharge if she desaturates again Patient is otherwise improved from a pulmonary standpoint. She should follow up in 1-2 weeks after discharge. Pulmonary will sign off. Please call with questions. Thank you Data Medications: Current Inpatient Medications Medications (Trade) Dose Ordered Sig/Maricel Route Start Time Stop Time Status Last Admin Dose Admin Enoxaparin Sodium (Lovenox Inj) 40 mg DAILY SC 02/04/17 09:00 03/06/17 08:59 02/07/17 07:36 40 MG Acetaminophen (Tylenol Tab) 650 mg Q4H PRN PO 02/03/17 14:30 03/05/17 14:29 02/04/17 20:52 650 MG Ondansetron HCl (Zofran Inj) 4 mg Q6H PRN IV 02/03/17 14:30 03/05/17 14:29 Nitroglycerin (Nitrostat Tab) 0.4 mg UD PRN SL 02/03/17 14:30 03/05/17 14:29 Morphine Sulfate (MoRPHine SULFATE INJ) 2 mg Q30M PRN IV 02/03/17 14:30 02/17/17 14:29 Polyethylene (Miralax Powder Packet) 17 gm DAILY PRN PO 02/03/17 14:30 03/05/17 14:29 Levofloxacin (Consult) 1 ea UD N/A 02/03/17 14:38 03/05/17 14:37 Codeine Phosphate/ Guaifenesin (Robitussin-AC Sugar Free Syrup) 10 ml Q6H PRN PO 02/03/17 14:45 03/05/17 14:44 02/07/17 07:37 10 ML Aspirin (Ecotrin Tab) 81 mg DAILY PO 02/04/17 09:00 03/06/17 08:59 02/07/17 07:35 81 MG Atorvastatin Calcium (Lipitor Tab) 40 mg DAILY PO 02/04/17 09:00 03/06/17 08:59 02/07/17 07:35 40 MG Carvedilol (Coreg Tab) 3.125 mg DAILY PO 02/04/17 09:00 03/06/17 08:59 02/07/17 07:35 3.125 MG Cholecalciferol (Vitamin D Tab) 1,000 inter.unit DAILY PO 02/04/17 09:00 03/06/17 08:59 02/07/17 07:36 1,000 INTER.UNIT Furosemide (Lasix Tab) 60 mg DAILY PO 02/04/17 09:00 03/06/17 08:59 02/07/17 07:35 60 MG Lisinopril (Zestril Tab) 5 mg DAILY PO 02/04/17 09:00 03/06/17 08:59 02/07/17 07:35 5 MG Lorazepam (Ativan Tab) 0.5 mg TID PRN PO 02/03/17 14:45 03/05/17 14:44 Multivitamins (Multivitamin Tab) 1 tab DAILY PO 02/04/17 09:00 03/06/17 08:59 02/07/17 07:35 1 TAB Pantoprazole Sodium (Protonix Tab) 40 mg DAILY PO 02/04/17 09:00 03/06/17 08:59 02/07/17 07:34 40 MG Sertraline HCl (Zoloft Tab) 100 mg DAILY PO 02/04/17 09:00 03/06/17 08:59 02/07/17 07:35 100 MG Tramadol HCl (Ultram Tab) 50 mg Q6H PRN PO 02/03/17 14:45 03/05/17 14:44 02/06/17 21:58 50 MG Albuterol/ Ipratropium (Duoneb) 3 ml QIDR INH 02/04/17 16:30 03/06/17 16:29 02/07/17 07:12 3 ML Benzonatate (Tessalon Perles Cap) 100 mg TID PRN PO 02/04/17 16:30 03/06/17 16:29 02/07/17 07:33 100 MG Magnesium Hydroxide (Milk Of Magnesia Susp) 30 ml Q6H PRN PO 02/04/17 16:30 03/06/17 16:29 02/04/17 20:52 30 ML Clonidine HCl (Catapres Tab) 0.1 mg Q8 PRN PO 02/04/17 17:15 03/06/17 17:14 02/04/17 17:29 0.1 MG Guaifenesin (Mucinex Contr Rel Tab) 1,200 mg Q12 PO 02/05/17 10:00 03/07/17 09:59 02/07/17 07:34 1,200 MG Levofloxacin (Levaquin Tab) 750 mg Q2D@1100 PO 02/07/17 11:00 02/10/17 10:59 Sodium Chloride ([place] Nasal [place]) 1 sprays PRN PRN NA 02/06/17 22:00 03/08/17 21:59 Prednisone (PredniSONE TAB) 40 mg DAILY PO 02/07/17 09:00 03/09/17 08:59 02/07/17 07:34 40 MG Vital Signs: Date Time Temp Pulse Resp B/P (MAP) Pulse Ox O2 Delivery O2 Flow Rate FiO2 02/07/17 08:00 Nasal Cannula 2.0 02/07/17 08:00 36.3 54 18 164/72 (102) 97 Room Air 02/07/17 07:12 55 16 97 BiPAP/CPAP 2.0 02/07/17 07:12 55 97 2.0 02/07/17 00:02 36.8 61 20 156/52 (86) 95 CPAP 02/07/17 00:00 Nasal Cannula 2.0 02/06/17 22:00 68 95 2.0 02/06/17 18:57 83 15 95 Nasal Cannula 2.0 02/06/17 16:00 Nasal Cannula 2.0 02/06/17 15:07 36.9 87 20 122/78 (93) 94 Nasal Cannula 2.0 02/06/17 14:45 73 15 94 Nasal Cannula 2.0 02/06/17 14:35 95 02/06/17 11:12 71 15 94 Nasal Cannula 1.0 Laboratory Results: Last 24 Hours Test 02/07/17 05:57 Creatinine 1.10 mg/dl Est Creatinine Clear Calc Drug Dose 43.2 ml/min Estimated GFR () 54.5 Estimated GFR (Non- 47.0
[2017-02-07] MEDS ORDERED: LEVOFLOXACIN 750 MG TAB PO SCH (11:00)
--- NOTE | 2017-02-07 14:17 | Progress Note ---
Internal Med Progress Note Date of Service: Feb 07, 2017. Provider Documentation: SUBJECTIVE: Seen and examined at bedside Feels well today Minimal cough SOB/wheezing much better Denies chest pain Offers no other complaints OBJECTIVE: Vital Signs-as noted below Physical Exam: General Appearance:Moderately built and nourished, no apparent distress Head: normocephalic, Atraumatic Eyes: normal inspection, EOMI, PERRL Neck: supple, Trachea midline Respiratory/Chest: Decreased breath sounds, Minimal wheezes bilaterally Cardiovascular: S1, S2, No murmur Abdomen/GI:Soft, Non tender, Bowel sounds present Extremities/Musculoskelatal:normal inspection, no edema Neurologic/Psych:grossly no focal neurological deficits Skin: normal color, warm Lab data as noted below. ASSESSMENT & PLAN: COPD EXACERBATION presented with Cough /SOB for past 3 days , no fever or chills has baseline COPD , on 2 L 02 at night follows with Pulmonology Dr Lopez Failed trial of Rescue Kit with Z pack and oral prednisone -no improvement, IV solu Medrol tapered to PO prednisone (Needs long taper upon DC) cont Neb tx QID scheduled and Q2 PRN continue empiric Abx with Levaquin to complete 7 day course Appreciate Pulm input Needs follow up with 1-2 weeks upon discharge POSSIBLE ASPIRATION PNEUMONIA:POA pt mentions of drinking coffee in a hurry few days back and started to have cough CXR mentions basilar infiltrate /vs atelectasis 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 speech eval requested -appreciate input recommend regular diet with thing liquid observe aspiration precaution MILD ELEVATION OF TROPONIN: no complain of chest pain no angina symptom possible demand ischemia in setting of hypoxia /COPD exacerbation echo Shows no wall motion abnormality pt will be continued with out pt meds no further cardiac testing needed HARMEET cont CPAP at night pt can use her own device CHRONIC DIASTOLIC CHF : clinically stable ECHO shows stable EF CKD III : renal function at baseline S.P AORTIC VALVE REPLACEMENT : 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 The LV Ejection Fraction = 65-70%. The aortic valve is trileaflet. Aortic valve regurgitation is present, but not well quantitated on this study. Aortic stenosis is absent. Grade I diastolic dysfunction, (abnormal relaxation pattern). DVT Px SQ Lovenox DISPOSITION expected to be discharged home when medically stable PT/OT Social service consulted for discharge planning Vital Signs: Date Time Temp Pulse Resp B/P (MAP) Pulse Ox O2 Delivery O2 Flow Rate FiO2 02/07/17 16:04 71 16 92 Room Air 02/07/17 14:59 36.3 71 16 144/74 (97) 92 02/07/17 11:14 68 16 94 Room Air 02/07/17 08:00 Nasal Cannula 2.0 02/07/17 08:00 36.3 54 18 164/72 (102) 97 Room Air 02/07/17 07:12 55 16 97 BiPAP/CPAP 2.0 02/07/17 07:12 55 97 2.0 02/07/17 00:02 36.8 61 20 156/52 (86) 95 CPAP 02/07/17 00:00 Nasal Cannula 2.0 02/06/17 22:00 68 95 2.0 02/06/17 18:57 83 15 95 Nasal Cannula 2.0 Lab Results: Results Past 24 Hours Test 02/07/17 05:57 Range/Units Creatinine 1.10 0.60-1.20 mg/dl Est Creatinine Clear Calc Drug Dose 43.2 ml/min Estimated GFR () 54.5 Estimated GFR (Non- 47.0
[2017-02-07] MEDS: TRAMADOL HCL 50 MG TAB PO PRN (20:55)
[2017-02-08] VITALS (7 sets, daily range): BP systolic 106–150; BP diastolic 64–69; PULSE 58–100; TEMP 36.6–36.9; O2SAT 90–96
[2017-02-08] MEDS: ALBUT/IPRATROP 3MG/0.5MG NEB 3 ML VIAL INH SCH ×3 (07:29→15:31)
[2017-02-08] MEDS: GUAIFENESIN 600 MG TABCR PO SCH (08:33)
[2017-02-08] MEDS: CARVEDILOL 3.125 MG TAB PO SCH (08:34)
[2017-02-08] MEDS: SERTRALINE HCL 100 MG TAB PO SCH (08:34)
[2017-02-08] MEDS: PANTOprazole SOD 40 MG TAB PO SCH (08:34)
[2017-02-08] MEDS: ATORVASTATIN 40 MG TAB PO SCH (08:34)
[2017-02-08] MEDS: ASPIRIN 81 MG ECTAB PO SCH (08:34)
[2017-02-08] MEDS: CHOLECALCIFEROL 1000 INTER.UNIT TAB PO SCH (08:35)
[2017-02-08] MEDS: MULTIVITAMIN TAB PO SCH (08:35)
[2017-02-08] MEDS: LISINOPRIL 5 MG TAB PO SCH (08:35)
[2017-02-08] MEDS: FUROSEMIDE 20 MG TAB PO SCH (08:35)
[2017-02-08] MEDS: ENOXAPARIN 40 MG/0.4 ML SYR SC SCH (10:22)
--- NOTE | 2017-02-08 17:03 | Progress Note ---
Internal Med Progress Note Date of Service: Feb 08, 2017. Provider Documentation: SUBJECTIVE: Seen and examined at bedside Less cough SOB/wheezing much improved Denies chest pain Offers no other complaints Family at bedside OBJECTIVE: Vital Signs-as noted below Physical Exam: General Appearance:Moderately built and nourished, no apparent distress Head: normocephalic, Atraumatic Eyes: normal inspection, EOMI, PERRL Neck: supple, Trachea midline Respiratory/Chest: Decreased breath sounds, coarse Cardiovascular: S1, S2, No murmur Abdomen/GI:Soft, Non tender, Bowel sounds present Extremities/Musculoskelatal:normal inspection, no edema Neurologic/Psych:grossly no focal neurological deficits Skin: normal color, warm Lab data as noted below. ASSESSMENT & PLAN: COPD EXACERBATION presented with Cough /SOB for past 3 days , no fever or chills has baseline COPD , on 2 L 02 at night follows with Pulmonology Dr Lopez Failed trial of Rescue Kit with Z pack and oral prednisone -no improvement, IV solu Medrol tapered to PO prednisone (Needs long taper upon DC) cont Neb tx QID scheduled and Q2 PRN continue empiric Abx with Levaquin to complete 7 day course Appreciate Pulm input Needs follow up with 1-2 weeks upon discharge POSSIBLE ASPIRATION PNEUMONIA:POA pt mentions of drinking coffee in a hurry few days back and started to have cough CXR mentions basilar infiltrate /vs atelectasis 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 speech eval requested -appreciate input recommend regular diet with thing liquid observe aspiration precaution MILD ELEVATION OF TROPONIN: no complain of chest pain no angina symptom possible demand ischemia in setting of hypoxia /COPD exacerbation echo Shows no wall motion abnormality pt will be continued with out pt meds no further cardiac testing needed HARMEET cont CPAP at night pt can use her own device CHRONIC DIASTOLIC CHF : clinically stable ECHO shows stable EF CKD III : renal function at baseline S.P AORTIC VALVE REPLACEMENT : 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 The LV Ejection Fraction = 65-70%. The aortic valve is trileaflet. Aortic valve regurgitation is present, but not well quantitated on this study. Aortic stenosis is absent. Grade I diastolic dysfunction, (abnormal relaxation pattern). DVT Px SQ Lovenox DISPOSITION Plan to discharge home today Follow up with Dr. Alcantar on 02/14/17 at 12:45pm Follow up with your [employer] Dr Lopez in 1-2 weeks as advised Complete the antibiotic course and prednisone taper course as prescribed Seek immediate medical attention if your symptoms reoccur or worsen Prednisone taper: Start taking 30mg for 3 days, then 20mg for 3 days, then 10mg for 3 days, 5mg for 3 days and stop. Vital Signs: Date Time Temp Pulse Resp B/P (MAP) Pulse Ox O2 Delivery O2 Flow Rate FiO2 02/08/17 15:31 77 16 91 Room Air 02/08/17 15:20 36.9 100 20 106/64 (78) 90 Room Air 02/08/17 11:40 74 16 93 Room Air 02/08/17 08:00 Room Air 02/08/17 07:29 65 16 91 Room Air 02/08/17 07:21 36.6 58 18 150/68 (95) 96 CPAP 02/08/17 00:34 36.9 71 18 123/69 (87) 96 02/08/17 00:00 CPAP 02/07/17 21:59 64 96 2.0 02/07/17 19:49 36.5 82 20 105/65 (78) 93 Room Air 02/07/17 19:22 62 16 91 Room Air Lab Results: Microbiology Results 02/08/17 Gram Stain - Final, Resulted 02/08/17 Sputum Culture, Resulted Pending
[2017-02-08] MEDS ORDERED: PRED10TA PO (17:06)
[2017-02-08] MEDS ORDERED: LVQ750 PO (17:06)
--- NOTE | 2017-02-08 17:08 | Discharge Summary ---
Discharge Summary Date of Service Feb 08, 2017. Discharge Summary Admission Date: Feb 03, 2017 at 13:42 Discharge Date: Feb 08, 2017 Discharge Disposition: Home Principal Diagnosis: COPD exacerbation Procedures: CXR: 1. Cardiomegaly with mild central vascular prominence but no evidence of overt failure 2. Probable right sided pleural diaphragmatic scarring. Right basilar opacities, atelectatic versus inflammatory. Consultations: Pulmonology Pending Studies/Follow-Up: Follow up with Dr. Alcantar on 02/14/17 at 12:45pm Follow up with your Rn Hematology Dr Lopez in 1-2 weeks as advised Complete the antibiotic course and prednisone taper course as prescribed Seek immediate medical attention if your symptoms reoccur or worsen Prednisone taper: Start taking 30mg for 3 days, then 20mg for 3 days, then 10mg for 3 days, 5mg for 3 days and stop. Medication Reconciliation New Medications: Prednisone Tab (Prednisone) 10 Mg Tab 10 MG PO UD for 12 Days, #20 TAB Start taking 30mg for 3 days, then 20mg for 3 days, then 10mg for 3 days, 5mg for 3 days and stop. Levofloxacin (Levofloxacin) 750 Mg Tab 750 MG PO Q2D@1100 for 8 Days, #4 TAB Continued Medications: Acetaminophen (Tylenol) 500 Mg Tab 1000 MG PO, TAB Albuterol Hfa (Ventolin Hfa) 200 Puffs/97030 Mcg Aers 2-4 PUFFS INH Q4H PRN for SOB/Wheezing, INHALER Alendronate Sodium (Fosamax) 70 Mg Tab 1 TAB PO WK for 28 Days, #4 TAB 3 Refills Take every Amoxicillin (Amoxil) 500 Mg Cap 500 MG PO, CAP 4 CAP PO 1 HOUR BEFORE PROCEDURE Aspirin (Aspirin Ec) 81 Mg Tab 81 MG PO DAILY Atorvastatin (Lipitor) 40 Mg Tab 40 MG PO DAILY, TAB Carvedilol (Coreg) 3.125 Mg Tab 3.125 MG PO DAILY, TAB Cholecalciferol (Vitamin D3) 1,000 Unit Tab 1 TAB PO DAILY, TAB Doxycycline Hyclate (Doxycycline Hyclate) 100 Mg Cap 100 MG PO BID PRN for COPD exacerbation, CAP Furosemide (Lasix) 40 Mg Tab 1.5 TAB PO DAILY Home O2 Therapy (Oxygen) Gas 2 LITERS NA HS USE DIRECTED WITH C-PAP. Levalbuterol (Levalbuterol HCl) 0.63 Mg/3 Ml Nebu 1 DOSE INH Q6H PRN for SOB/Wheezing Lisinopril (Zestril) 10 Mg Tab 5 MG PO DAILY, TAB Lorazepam (Ativan) 0.5 Mg Tab 0.5 MG PO TID PRN for Anxiety/Insomnia, TAB Mometasone Furoate-Formoterol (Dulera 200/5 Mcg) 1 Aer Aer 2 PUFFS INH BID Multivitamin (Multivitamin) Tab 1 TAB PO DAILY, 0 Refills Pantoprazole (Protonix) 40 Mg Tab 40 MG PO DAILY, TAB Sertraline (Zoloft) 100 Mg Tab 100 MG PO DAILY, TAB Tiotropium [place] (Spiriva Handihaler) 30 Puff/540 Mcg Aerp 1 CAP INH DAILY, INHALER Tramadol (Ultram) 50 Mg Tab 50 MG PO Q6H PRN for Pain, TAB Discontinued Medications: Prednisone Tab (Prednisone) 10 Mg Tab 10 MG PO UD PRN for COPD exacerbation, TAB Taper per doc instructions Admission Information HPI (per Admitting provider): The patient is an 81 yo F with h/o COPD who presents after three days of feeling chest congestion, nasal congestion and shortness of breath. She has been taking her rescue pack which includes a taper of prednisone starting at 50mg daily along with doxycycline BID but with no improvement. She is experiencing conversational dyspnea, persistent cough productive of whitish sputum and states this is the way she looks when she has had COPD exacerbations in the past. She denies any sick contacts but states that in her area of [place], there were two children infected with Pertussis and she was exposed to the one of the children's mother but no the child. She has had insomnia from incessant coughing overnight. She denies any chest pain, fevers, chills, nausea , vomiting, diarrhea, abdominal pain or UTI symptoms. She reports that she is chronically short of breath which is worse when she is coughing here in the past 3 days. She has a sore abdomen laterally from coughing. She has a headache that just began in the ER. She reports some constipation from the rescue pack medications. 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 She reports a sore throat from coughing. 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 Physical Exam (per Admitting): General Appearance: WD/WN, + mild distress Head: normocephalic, atraumatic Eyes: normal inspection, PERRL, sclerae normal ENT: hearing grossly normal, pharynx normal, + pertinent finding (no sinus TTP) Neck: supple, no adenopathy, no JVD, trachea midline Respiratory/Chest: + respiratory distress (conversational dyspnea), + wheezing (diffuse wheezing throughout all lung white. ) Cardiovascular: regular rate, rhythm, no edema, no gallop, no murmur, normal peripheral pulses Abdomen/GI: normal bowel sounds, non tender, soft Back: normal inspection Extremities/Musculoskelatal: normal inspection, + pertinent finding (no edema) Neurologic/Psych: no motor/sensory deficits, alert, normal mood/affect, oriented x 3 Skin: normal color, warm/dry Hospital Course COPD EXACERBATION presented with Cough /SOB for past 3 days , no fever or chills has baseline COPD , on 2 L 02 at night follows with Pulmonology Dr Lopez Failed trial of Rescue Kit with Z pack and oral prednisone -no improvement, IV solu Medrol tapered to PO prednisone (Needs long taper upon DC) cont Neb tx QID scheduled and Q2 PRN continue empiric Abx with Levaquin to complete 7 day course Appreciate Pulm input Needs follow up with 1-2 weeks upon discharge POSSIBLE ASPIRATION PNEUMONIA:POA pt mentions of drinking coffee in a hurry few days back and started to have cough CXR mentions basilar infiltrate /vs atelectasis 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 speech eval requested -appreciate input recommend regular diet with thing liquid observe aspiration precaution MILD ELEVATION OF TROPONIN: no complain of chest pain no angina symptom possible demand ischemia in setting of hypoxia /COPD exacerbation echo Shows no wall motion abnormality pt will be continued with out pt meds no further cardiac testing needed HARMEET cont CPAP at night pt can use her own device CHRONIC DIASTOLIC CHF : clinically stable ECHO shows stable EF CKD III : renal function at baseline S.P AORTIC VALVE REPLACEMENT : s/p aortic dissection in past s/p repair with paralyzed phrenic nerve and subsequent R hemidiaphragm elevation follows with Cardiology Dr Rojas at [facility] stable form Cardiac stand point ECHO : No regional wall motion abnormalities noted. The LV Ejection Fraction = 65-70%. The aortic valve is trileaflet. Aortic valve regurgitation is present, but not well quantitated on this study. Aortic stenosis is absent. Grade I diastolic dysfunction, (abnormal relaxation pattern). DVT Px SQ Lovenox DISPOSITION Plan to discharge home today Follow up with Dr. Alcantar on 02/14/17 at 12:45pm Follow up with your Rn Hematology Dr Lopez in 1-2 weeks as advised Complete the antibiotic course and prednisone taper course as prescribed Seek immediate medical attention if your symptoms reoccur or worsen Prednisone taper: Start taking 30mg for 3 days, then 20mg for 3 days, then 10mg for 3 days, 5mg for 3 days and stop. Total time spent on discharge = 34 minutes This includes examination of the patient, discharge planning, medication reconciliation, and communication with other providers. Discharge Instructions Discharge Instructions Date of Service Feb 08, 2017. Admission Reason for Admission: Hypoxia Discharge Discharge Diagnosis / Problem: COPD exacerbation Discharge Goals Goal(s): Decrease discomfort, Improve function Activity Recommendations Activity Limitations: resume your previous activity Exercise/Sports Limitations: as tolerated . Instructions / Follow-Up Instructions / Follow-Up Follow up with Dr. Alcantar on 02/14/17 at 12:45pm Follow up with your Rn Hematology Dr Lopez in 1-2 weeks as advised Complete the antibiotic course and prednisone taper course as prescribed Seek immediate medical attention if your symptoms reoccur or worsen Prednisone taper: Start taking 30mg for 3 days, then 20mg for 3 days, then 10mg for 3 days, 5mg for 3 days and stop. Current Hospital Diet Patient's current hospital diet: AHA Diet (Heart Healthy) Discharge Diet Recommended Diet: AHA Diet (Heart Healthy) Pending Studies Studies pending at discharge: no Laboratory Results Lipid Panel Test 02/04/17 07:27 Range/Units Triglycerides Level 88 0-150 mg/dl Cholesterol Level 161 0-200 mg/dl HDL Cholesterol 71 mg/dl Cholesterol/HDL Ratio 2.3 LDL Cholesterol, Calculated 72 mg/dl Medical Emergencies . Who to Call and When: Medical Emergencies: If at any time you feel your situation is an emergency, please call 911 immediately. . Non-Emergent Contact Non-Emergency issues call your: Primary Care Provider, Rn Hematology Call Non-Emergent contact if: you have a fever, your pain is not controlled, your pain is worsening, your pain is unusual for you, your pain is concerning you, you have any medication questions Seek immediate medical attention if your symptoms reoccur or worsen (Shortness of breath, cough) . . "Provider Documentation" section prepared by Valdo Mclean. . VTE Core Measure Inpt VTE Proph given/why not?: Enoxaparin (Lovenox)SQ <Electronically signed by Valdo Mclean MD> Signed: 02/08/17 0760 Signed: The status of this report is Signed * If report status is Draft, the document has not been finalized by the responsible provider.
[2017-02-09] MEDS ORDERED: ALENDRONATE SODIUM 70 MG TAB PO SCH (09:00)
== END 2017-02-08 18:04 | disposition home or self-care (01) | DRG 178 ==
LOC: EDBD 10:57 → C.EDC 10:58 → C.MED 13:42 → ENRESERV 14:33
PROVIDERS: ADMIT Hospitalist; ATTEND Internal Medicine
DX: J69.0 Pneumonitis due to inhalation of food and vomit (principal); J44.1 Chronic obstructive pulmonary disease with (acute) exacerbation; I13.0 Hypertensive heart and chronic kidney disease with heart failure and stage 1 through stage 4 chronic kidney disease, or unspecified chronic kidney disease; I50.32 Chronic diastolic (congestive) heart failure; R09.02 Hypoxemia; J98.6 Disorders of diaphragm; G47.33 Obstructive sleep apnea (adult) (pediatric); N18.3 Chronic kidney disease, stage 3 (moderate); I35.1 Nonrheumatic aortic (valve) insufficiency; M81.0 Age-related osteoporosis without current pathological fracture; E78.5 Hyperlipidemia, unspecified; K21.9 Gastro-esophageal reflux disease without esophagitis; F32.9 Major depressive disorder, single episode, unspecified; F41.9 Anxiety disorder, unspecified; Z66 Do not resuscitate; Z87.891 Personal history of nicotine dependence; Z86.79 Personal history of other diseases of the circulatory system; Z79.82 Long term (current) use of aspirin; Z79.83 Long term (current) use of bisphosphonates; Z79.899 Other long term (current) drug therapy; Z88.1 Allergy status to other antibiotic agents; Z80.0 Family history of malignant neoplasm of digestive organs; Z82.49 Family history of ischemic heart disease and other diseases of the circulatory system; Z83.3 Family history of diabetes mellitus

== ENCOUNTER 2017-06-20 19:12 | Inpatient (IN) | payer OTHER ==
[~2017-06-20] VITALS: Ht 162.6 cm; Wt 88.1 kg
[~2017-06-20 19:12] MED LIST changes: -ALBUAER2 INH; +AMOX500C3 PO; -AMX500 PO; -ASPEC81 PO; +ASPI81TA28 PO; -ATOR10TA88 PO; -ATV5 PO; +CARV3.122 PO; +CHOL1000 PO; -CHOL100010 PO; +DXY100 PO; -FLUT110A INH; -LISI-461 PO; +LORA-741 PO; +LPT/40 PO; +LVQ750 PO; +MOME200A INH; -PANT40TA PO; +SPRIN/30 INH; -TIOTCAP INH; +TRAM-10 PO; +VNTHFA/IN INH
[2017-06-20] MEDS ORDERED: PANT40TA PO (19:37)
[2017-06-20] MEDS ORDERED: ALBUT/IPRATROP 3MG/0.5MG NEB 3 ML VIAL INH STA (20:05)
[2017-06-20] MEDS ORDERED: METHYLPREDNISOLONE 125 MG VIAL IV STA (20:05)
--- NOTE | 2017-06-20 20:11 | EMERGENCY ROOM VISIT NOTE ---
History Report prepared by Carrie: Tim Archer Under the Supervision of: Dr. Christopher Cisneros M.D. First contact with patient: 19:57 Chief Complaint: RESPIRATORY PROBLEMS Stated Complaint: SOB, HEADACHE, TMJ History of Present Illness The patient is an 82 year old female who presents to the Emergency Room with complaints of constant SOB beginning today. The patient states that she has lung problems and gets pneumonia often. She notes that she took her rescue inhaler twice today for her SOB symptoms, but that it is not working. She reports that she has been taking prednisone for the past 3 days as well as azithromycin. She also complains of a headache and a cough. The patient states that she was recently diagnosed with TMJ which causes her headache when she coughs. She denies any CP, fever, leg pain, and leg swelling. She notes that she has a paralyzed diaphragm. Source of History: patient, family Onset: today Position: chest Quality: other (SOB) Timing: constant Associated Symptoms: + headache, + cough, No fevers, No chest pain Note: She denies any leg pain and leg swelling. Review of Systems See HPI for pertinent positives & negatives. A total of 10 systems reviewed and were otherwise negative. 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 Nurse's notes were reviewed and I agree with. COPD Family History Colon cancer MOTHER Coronary artery disease FATHER Diabetes mellitus MOTHER Social History Smoking Status: Former Smoker Alcohol Use: none Drug Use: none Marital Status: Housing Status: lives with family Occupation Status: retired Current/Historical Medications Scheduled Acetaminophen (Tylenol), 1,000 MG PO HS Aspirin (Aspirin Ec), 81 MG PO DAILY Atorvastatin (Lipitor), 40 MG PO QPM Azithromycin (Zithromax), 1 PKT PO UD Carvedilol (Coreg), 3.125 MG PO DAILY Cholecalciferol (Vitamin D3), 2 TAB PO DAILY Furosemide (Lasix), 1.5 TAB PO DAILY Home O2 Therapy (Oxygen), 2 LITERS NA HS Lisinopril (Zestril), 5 MG PO DAILY Mometasone Furoate-Formoterol (Dulera 200/5 Mcg), 2 PUFFS INH BID Multivitamin (Multivitamin), 1 TAB PO DAILY Pantoprazole (Protonix), 40 MG PO DAILY Prednisone Tab (Prednisone), 10 MG PO TAPER UD Sertraline (Zoloft), 150 MG PO DAILY Scheduled PRN Albuterol Hfa (Ventolin Hfa), 2-4 PUFFS INH Q4H PRN for SOB/Wheezing Levalbuterol (Levalbuterol HCl), 1 DOSE INH Q6H PRN for SOB/Wheezing Lorazepam (Ativan), 0.5 MG PO TID PRN for Anxiety/Insomnia Tramadol (Ultram), 50 MG PO Q6H PRN for Pain Miscellaneous Medications Amoxicillin (Amoxil), 500 MG PO Allergies Coded Allergies: Bacitracin (Unverified Allergy, Mild, REDNESS, 02/03/17) Neomycin (Unverified Allergy, Mild, REDNESS, 02/03/17) Polymyxin B (Unverified Allergy, Mild, REDNESS, 02/03/17) Physical Exam Vital Signs Date Time Temp Pulse Resp B/P (MAP) Pulse Ox O2 Delivery O2 Flow Rate FiO2 06/20/17 21:30 64 20 174/72 96 Room Air 06/20/17 21:08 62 06/20/17 20:32 94 06/20/17 20:32 Room Air 06/20/17 19:43 53 20 160/68 95 Room Air Physical Exam General: Non-ill appearing older female in mild respiratory acute distress. Frequently coughing. HEENT: Normal cephalic atraumatic. Pupils are equal round and reactive to light. Extraocular movements are intact. Oropharynx is pink with moist mucous membranes. No swelling of the mouth lips or tongue. Neck: Supple with a midline trachea. No meningeal signs or stiffness, no JVD or bruits. No Stridor. Chest: Clear to auscultation bilaterally. No rhonchi and scattered wheezes. No increased work of breathing. Heart: regular rate and rhythm. Abdomen: Soft nontender, nondistended without rebound guarding or rigidity. Extremities: No cyanosis clubbing or edema. No calf tenderness or assymetry Spine/Back. Non tender to palpation. No CVA tenderness Skin: Good turgor without rashes. Neurologic exam: Cranial nerves two through 12 are intact. Motor and sensation are intact and symmetrical throughout. Medical Decision & Procedures ER Provider Diagnostic Interpretation: Radiology results as stated below per my review and radiologist interpretation: CHEST ONE VIEW PORTABLE HISTORY: 82 years-old Female CHEST PAIN acute atypical chest pain COMPARISON: Chest radiograph 02/05/2017, CT 06/02/2016 TECHNIQUE: Portable AP view the chest FINDINGS: Cardiac silhouette is again moderately enlarged. Prior median sternotomy. Atherosclerosis with unchanged dilation of the thoracic aorta. There is no pneumothorax or pleural effusion. Chronic linear subsegmental opacities of the right lung base suggest atelectasis/scarring. There is chronic right hemidiaphragmatic elevation with blunting of the right costophrenic angle. Bones of the chest appear grossly intact. IMPRESSION: No acute process. The above report was generated using voice recognition software. It may contain grammatical, syntax or spelling errors. Electronically signed by: Anselmo Glass M.D. 06/20/2017 8:35 PM Laboratory Results 06/20/17 20:15 Red Blood Count 4.11, Mean Corpuscular Volume 94.9, Mean Corpuscular Hemoglobin 31.1, Mean Corpuscular Hemoglobin Concent 32.8, Mean Platelet Volume 10.7, Neutrophils (%) (Auto) 75.3, Lymphocytes (%) (Auto) 14.2, Monocytes (%) (Auto) 10.0, Eosinophils (%) (Auto) 0.0, Basophils (%) (Auto) 0.1, Neutrophils # (Auto ) 6.19, Lymphocytes # (Auto) 1.17, Monocytes # (Auto) 0.82, Eosinophils # (Auto ) 0.00, Basophils # (Auto) 0.01 06/20/17 20:15 Test 06/20/17 00:00 06/20/17 20:15 06/20/17 20:23 06/20/17 20:25 Influenza Type A (RT-PCR) Neg for Influ A (NEG) Influenza Type A Antigen Neg for Influ A (NEG) Influenza Type B Antigen Neg for Influ B (NEG) Influenza Type B (RT-PCR) Neg for Influ B (NEG) White Blood Count 8.22 K/uL (4.8-10.8) Red Blood Count 4.11 M/uL (4.2-5.4) Hemoglobin 12.8 g/dL (12.0-16.0) Hematocrit 39.0 % (37-47) Mean Corpuscular Volume 94.9 fL (80-100) Mean Corpuscular Hemoglobin 31.1 pg (25-34) Mean Corpuscular Hemoglobin Concent 32.8 g/dl (32-36) Platelet Count 162 K/uL (130-400) Mean Platelet Volume 10.7 fL (7.4-10.4) Neutrophils (%) (Auto) 75.3 % Lymphocytes (%) (Auto) 14.2 % Monocytes (%) (Auto) 10.0 % Eosinophils (%) (Auto) 0.0 % Basophils (%) (Auto) 0.1 % Neutrophils # (Auto) 6.19 K/uL (1.4-6.5) Lymphocytes # (Auto) 1.17 K/uL (1.2-3.4) Monocytes # (Auto) 0.82 K/uL (0.11-0.59) Eosinophils # (Auto) 0.00 K/uL (0-0.5) Basophils # (Auto) 0.01 K/uL (0-0.2) RDW Standard Deviation 49.3 fL (36.4-46.3) RDW Coefficient of Variation 14.3 % (11.5-14.5) Immature Granulocyte % (Auto) 0.4 % Immature Granulocyte # (Auto) 0.03 K/uL (0.00-0.02) Prothrombin Time 10.3 SECONDS (9.0-12.0) Prothromb Time International Ratio 1.0 (0.9-1.1) Anion Gap 4.0 mmol/L (3-11) Estimated GFR () 56.6 Estimated GFR (Non- 48.9 BUN/Creatinine Ratio 16.3 (10-20) Calcium Level 9.4 mg/dl (8.5-10.1) Total Bilirubin 0.3 mg/dl (0.2-1) Direct Bilirubin < 0.1 mg/dl (0-0.2) Aspartate Amino Transf (AST/SGOT) 13 U/L (15-37) Alanine Aminotransferase (ALT/SGPT) 24 U/L (12-78) Alkaline Phosphatase 90 U/L (45-117) Total Creatine Kinase 84 U/L (26-192) Creatine Kinase MB 2.2 ng/ml (0.5-3.6) Creatine Kinase MB Ratio 2.6 (0-3.0) Total Protein 8.1 gm/dl (6.4-8.2) Albumin 4.2 gm/dl (3.4-5.0) Lipase 141 U/L (73-393) Bedside Troponin I 0.050 ng/ml (0-0.045) Bedside Lactic Acid Venous 0.85 mmol/L (0.90-1.70) Laboratory studies as stated above per my review. Medications Administered Medications (Trade) Dose Ordered Sig/Maricel Route Start Time Stop Time Status Last Admin Dose Admin Albuterol/ Ipratropium (Duoneb) 3 ml NOW STAT INH 06/20/17 20:05 06/20/17 20:07 DC 06/20/17 20:26 3 ML Methylprednisolone Sodium Succinate (Solu-Medrol IV) 125 mg NOW STAT IV 06/20/17 20:05 06/20/17 20:07 DC 06/20/17 20:26 125 MG Levalbuterol (Xopenex 1.25MG/ 0.5ML Neb) 5 mg ONE ONCE INH 06/20/17 21:00 06/20/17 21:01 DC 06/20/17 21:42 5 MG Ipratropium Eads (Atrovent 0.02% 0.5MG/2.5ML Neb) 2 mg ONE ONCE INH 06/20/17 21:00 06/20/17 21:01 DC 06/20/17 21:42 2 MG Codeine Phosphate/ Guaifenesin (Robitussin-AC Sugar Free Syrup) 10 ml Q6H PRN PO 06/20/17 22:15 07/20/17 22:14 06/21/17 00:08 10 ML ECG Indication: SOB/dyspnea Rate (beats per minute): 60 Rhythm: normal sinus Findings: other (LVH, nonspecific ST abnormality) Comparison ECG Date: 02/05/2017 Change: no significant change Change: Patient's electrocardiogram was interpreted by me. ED Course 1958: Past medical records reviewed. The patient was evaluated in room B9, and a complete history and physical examination were performed. 2004: Solu-Medrol IV 125mg IV, Duoneb 3ml INH 2056: I reevaluated and updated the patient. She does not feel like she can go home. 2099: Ipratropium Eads 2mg INH, Levalbuterol 5mg INH 2125: Upon reevaluation, the patient is stable. I discussed the results and treatment plan with the patient. She verbalized agreement of the treatment plan. Discussed the patient's case with Marc Manrique. The patient will be evaluated for further management. Medical Decision Differential diagnoses include: bronchitis, pneumonia, COPD exacerbation, CHF, cardiac disease, and electrolyte/metabolic abnormality. This patient comes in as described above. She was placed in room B9. She is here for treatment and evaluation of cough and shortness of breath. She has been on a Z-S[place] as well as steroids since the weekend. She has a history of COPD and gets frequent pneumonias due to a paralyzed diaphragm she tells me. She is followed by Dr. Astorga. She has a cough and appears mildly tachypneic. she was given albuterol/Atrovent neb and ultimately a 1 hour neb with Xopenex/ Atrovent. Chest x-ray does not show any acute infiltrates, failure, or pneumothorax. EKG was unremarkable. She's had nothing to suggest sepsis. This point I think she has COPD exacerbation/bronchitis. Influenza swab is pending. She has failed outpatient treatment at this point I do think needs to be admitted/observed for further treatment and evaluation. I consulted Dr. Reyes to see her in the ER Medication Reconcilliation Current Medication List: was personally reviewed by me Blood Pressure Screening Patient's blood pressure: Normal blood pressure Blood pressure disposition: Elevated BP felt to be situational Consults Time Called: [id number] Consulting Physician: Marc Manrique Returned Call: [phone] Discussed the patient's case. The patient will be evaluated for further management. Impression Primary Impression: COPD exacerbation Additional Impressions: SOB (shortness of breath) Bronchitis Scribe Attestation The scribe's documentation has been prepared under my direction and personally reviewed by me in its entirety. I confirm that the note above accurately reflects all work, treatment, procedures, and medical decision making performed by me. Departure Information Dispostion Being Evaluated By Hospitalist Referrals Amina Alcantar D.O. (PCP) Patient Instructions My [facility] Problem Qualifiers
[2017-06-20 20:33] LABS: BASO % 0.1 %; BASO ABS # 0.01 K/uL (0-0.2); HEMOGLOBIN 12.8 g/dL (12.0-16.0); IG# 0.03 K/uL (0.00-0.02); LYMPH % 14.2 %; LYMPH ABS # 1.17 K/uL (1.2-3.4); MEAN CELL VOLUME 94.9 fL (80-100); MEAN CORPUSCULAR HEMOGLOBIN 31.1 pg (25-34); MEAN CORPUSCULAR HGB CONC 32.8 g/dl (32-36); MEAN PLATELET VOLUME 10.7 fL (7.4-10.4); MONO ABS # 0.82 K/uL (0.11-0.59); NEUT % 75.3 %; NEUT ABS # 6.19 K/uL (1.4-6.5); PLATELET COUNT 162 K/uL (130-400); RED CELL DISTRIBUTION WIDTH CV 14.3 % (11.5-14.5); RED CELL DISTRIBUTION WIDTH SD 49.3 fL (36.4-46.3); WHITE BLOOD COUNT 8.22 K/uL (4.8-10.8)
--- NOTE | 2017-06-20 20:36 | DIAGNOSTIC IMAGING REPORT ---
CHEST ONE VIEW PORTABLE HISTORY: 82 years-old Female CHEST PAIN acute atypical chest pain COMPARISON: Chest radiograph 02/05/2017, CT 06/02/2016 TECHNIQUE: Portable AP view the chest FINDINGS: Cardiac silhouette is again moderately enlarged. Prior median sternotomy. Atherosclerosis with unchanged dilation of the thoracic aorta. There is no pneumothorax or pleural effusion. Chronic linear subsegmental opacities of the right lung base suggest atelectasis/scarring. There is chronic right hemidiaphragmatic elevation with blunting of the right costophrenic angle. Bones of the chest appear grossly intact. IMPRESSION: No acute process. The above report was generated using voice recognition software. It may contain grammatical, syntax or spelling errors. Electronically signed by: Anselmo Glass M.D. 06/20/2017 8:35 PM Dictated Date/Time: 06/20/2017 8:32 PM
[2017-06-20] MEDS ORDERED: LISI-461 PO (20:41)
[2017-06-20 20:50] LABS: ALBUMIN 4.2 gm/dl (3.4-5.0); ALT/SGPT 24 U/L (12-78); AST/SGOT 13 U/L (15-37); BLOOD UREA NITROGEN 17 mg/dl (7-18); CALCIUM 9.4 mg/dl (8.5-10.1); CARBON DIOXIDE 29 mmol/L (21-32); CREATININE 1.06 mg/dl (0.60-1.20); GLUCOSE 86 mg/dl (70-99); LIPASE 141 U/L (73-393); POTASSIUM 3.7 mmol/L (3.5-5.1); SODIUM 139 mmol/L (136-145)
[2017-06-20 20:55] LABS: ALKALINE PHOSPHATASE 90 U/L (45-117); CKMB 2.2 ng/ml (0.5-3.6); TOTAL PROTEIN 8.1 gm/dl (6.4-8.2)
[2017-06-20] MEDS ORDERED: IPRATROPIUM BROMIDE NEB SOLN 0.02% 2.5 ML VIAL INH ONE (21:00)
[2017-06-20] MEDS ORDERED: LEVALBUTEROL 1.25MG/0.5ML NEB INH ONE (21:00)
[2017-06-20] MEDS ORDERED: PRED10TA PO (21:41)
[2017-06-20] MEDS ORDERED: AZIT250T PO (21:41)
[2017-06-20] MEDS ORDERED: POLYETHYLENE (MIRALAX) 17 GM PACK PO PRN (22:15)
[2017-06-20] MEDS ORDERED: ONDANSETRON INJ 2 MG/ML 2 ML VIAL IV PRN (22:15)
[2017-06-20] MEDS ORDERED: ACETAMINOPHEN 325 MG TAB PO PRN (22:15)
[2017-06-20 22:24] LABS: INFLUENZA B ANTIGEN Neg for Influ B (NEG)
--- NOTE | 2017-06-20 22:43 | History and Physical ---
History & Physical Date & Time of Service: Jun 20, 2017 at 22:20 Chief Complaint: Sob, Headache, Tmj Primary Care Physician: Amina Alcantar D.O. 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 ROS also reveals a R temporal headache and jaw pain associated with her recent diagnosis of TMJ disorder. She reports having taken her rescue pack consisting of Zpak and prednisone beginning three days ago, but did not improve. She denies fevers or chills. She states her is ill but doesn't have VIOLETTA. She has no other sick contacts. Daughter is at bedside and verifies all information presented. She is ambulatory but is very SOB with exertion at this time. She has conversational dyspnea and reports coughing all night long and not getting much sleep as a result. She denies nausea, vomiting , diarrhea, blood per rectum. She has chronic stress incontinence. History includes a prior aortic dissection repair, HARMEET on CPAP with 2L O2 at night, TMJ , HTN. She denies any chest pain currently. 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 Status: Chronic (7) Diastolic CHF, chronic Status: Chronic (8) Diverticular disease of colon Status: Chronic (9) History of aortic dissection Permanent Comment: 2009 Status: Chronic (10) Hyperlipemia Status: Chronic (11) Hypertension Status: Chronic (12) Hypertensive heart disease Status: Chronic (13) Sleep apnea Permanent Comment: CPAP with O2 2 LPM Status: Chronic Surgical Problems: (1) Status post aortic dissection repair Permanent Comment: 2009 [facility] Status: Chronic Family History Colon cancer MOTHER Coronary artery disease FATHER Diabetes mellitus MOTHER Social History Smoking Status: Former Smoker Smokeless Tobacco Use: No Alcohol Use: none Drug Use: none Marital Status: Housing status: lives with significant other Occupational Status: retired Immunizations History of Influenza Vaccine: Yes Influenza Vaccine Date: Mar 07, 2016 History of Tetanus Vaccine?: Yes Tetanus Immunization Date: Jan 18, 2008 History of Pneumococcal: Yes Pneumococcal Date: Aug 13, 2014 History of Hepatitis B Vaccine: Unknown Multi-Drug Resistant Organisms History of MDRO: No Allergies Coded Allergies: Bacitracin (Unverified Allergy, Mild, REDNESS, 02/03/17) Neomycin (Unverified Allergy, Mild, REDNESS, 02/03/17) Polymyxin B (Unverified Allergy, Mild, REDNESS, 02/03/17) Home Medications Scheduled Acetaminophen (Tylenol), 1,000 MG PO HS Aspirin (Aspirin Ec), 81 MG PO DAILY Atorvastatin (Lipitor), 40 MG PO QPM Azithromycin (Zithromax), 1 PKT PO UD Carvedilol (Coreg), 3.125 MG PO DAILY Cholecalciferol (Vitamin D3), 2 TAB PO DAILY Furosemide (Lasix), 1.5 TAB PO DAILY Home O2 Therapy (Oxygen), 2 LITERS NA HS Lisinopril (Zestril), 5 MG PO DAILY Mometasone Furoate-Formoterol (Dulera 200/5 Mcg), 2 PUFFS INH BID Multivitamin (Multivitamin), 1 TAB PO DAILY Pantoprazole (Protonix), 40 MG PO DAILY Prednisone Tab (Prednisone), 10 MG PO TAPER UD Sertraline (Zoloft), 150 MG PO DAILY Scheduled PRN Albuterol Hfa (Ventolin Hfa), 2-4 PUFFS INH Q4H PRN for SOB/Wheezing Levalbuterol (Levalbuterol HCl), 1 DOSE INH Q6H PRN for SOB/Wheezing Lorazepam (Ativan), 0.5 MG PO TID PRN for Anxiety/Insomnia Tramadol (Ultram), 50 MG PO Q6H PRN for Pain Miscellaneous Medications Amoxicillin (Amoxil), 500 MG PO Review of Systems At least ten systems were reviewed and negative except as indicated in HPI. Physical Exam Vital Signs Date Time Temp Pulse Resp B/P (MAP) Pulse Ox O2 Delivery O2 Flow Rate FiO2 06/20/17 21:30 64 20 174/72 96 Room Air 06/20/17 21:08 62 06/20/17 20:32 94 06/20/17 20:32 Room Air 06/20/17 19:43 53 20 160/68 95 Room Air General Appearance: WD/WN, + mild distress Head: normocephalic, atraumatic Eyes: normal inspection, PERRL, sclerae normal ENT: hearing grossly normal, pharynx normal, + pertinent finding (pain in R TMJ ) Neck: supple, no adenopathy Respiratory/Chest: no respiratory distress, + wheezing, + pertinent finding ( excessive coughing and some conversational dyspnea present) Cardiovascular: regular rate, rhythm, no edema, no gallop, no JVD, no murmur, normal peripheral pulses Abdomen/GI: normal bowel sounds, non tender, soft Back: normal inspection Extremities/Musculoskelatal: normal inspection, no pedal edema 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, no motor/sensory deficits, alert, normal mood/affect, oriented x 3 Skin: normal color Diagnostics Laboratory Results 06/20/17 20:15 Red Blood Count 4.11, Mean Corpuscular Volume 94.9, Mean Corpuscular Hemoglobin 31.1, Mean Corpuscular Hemoglobin Concent 32.8, Mean Platelet Volume 10.7, Neutrophils (%) (Auto) 75.3, Lymphocytes (%) (Auto) 14.2, Monocytes (%) (Auto) 10.0, Eosinophils (%) (Auto) 0.0, Basophils (%) (Auto) 0.1, Neutrophils # (Auto ) 6.19, Lymphocytes # (Auto) 1.17, Monocytes # (Auto) 0.82, Eosinophils # (Auto ) 0.00, Basophils # (Auto) 0.01 06/20/17 20:15 Test 06/20/17 00:00 06/20/17 20:15 06/20/17 20:23 06/20/17 20:25 Influenza Type A Antigen Neg for Influ A (NEG) Influenza Type B Antigen Neg for Influ B (NEG) White Blood Count 8.22 K/uL (4.8-10.8) Red Blood Count 4.11 M/uL (4.2-5.4) Hemoglobin 12.8 g/dL (12.0-16.0) Hematocrit 39.0 % (37-47) Mean Corpuscular Volume 94.9 fL (80-100) Mean Corpuscular Hemoglobin 31.1 pg (25-34) Mean Corpuscular Hemoglobin Concent 32.8 g/dl (32-36) Platelet Count 162 K/uL (130-400) Mean Platelet Volume 10.7 fL (7.4-10.4) Neutrophils (%) (Auto) 75.3 % Lymphocytes (%) (Auto) 14.2 % Monocytes (%) (Auto) 10.0 % Eosinophils (%) (Auto) 0.0 % Basophils (%) (Auto) 0.1 % Neutrophils # (Auto) 6.19 K/uL (1.4-6.5) Lymphocytes # (Auto) 1.17 K/uL (1.2-3.4) Monocytes # (Auto) 0.82 K/uL (0.11-0.59) Eosinophils # (Auto) 0.00 K/uL (0-0.5) Basophils # (Auto) 0.01 K/uL (0-0.2) RDW Standard Deviation 49.3 fL (36.4-46.3) RDW Coefficient of Variation 14.3 % (11.5-14.5) Immature Granulocyte % (Auto) 0.4 % Immature Granulocyte # (Auto) 0.03 K/uL (0.00-0.02) Anion Gap 4.0 mmol/L (3-11) Estimated GFR () 56.6 Estimated GFR (Non- 48.9 BUN/Creatinine Ratio 16.3 (10-20) Calcium Level 9.4 mg/dl (8.5-10.1) Total Bilirubin 0.3 mg/dl (0.2-1) Direct Bilirubin < 0.1 mg/dl (0-0.2) Aspartate Amino Transf (AST/SGOT) 13 U/L (15-37) Alanine Aminotransferase (ALT/SGPT) 24 U/L (12-78) Alkaline Phosphatase 90 U/L (45-117) Total Creatine Kinase 84 U/L (26-192) Creatine Kinase MB 2.2 ng/ml (0.5-3.6) Creatine Kinase MB Ratio 2.6 (0-3.0) Total Protein 8.1 gm/dl (6.4-8.2) Albumin 4.2 gm/dl (3.4-5.0) Lipase 141 U/L (73-393) Bedside Troponin I 0.050 ng/ml (0-0.045) Bedside Lactic Acid Venous 0.85 mmol/L (0.90-1.70) Date/Time Source Procedure Growth Status 06/20/17 21:14 Blood Blood Culture Pending Received Results Past 24 Hours Test 06/20/17 00:00 06/20/17 20:05 06/20/17 20:15 06/20/17 20:23 Range/Units Creatine Kinase MB Ratio 2.6 0-3.0 White Blood Count 8.22 4.8-10.8 K/uL Red Blood Count 4.11 4.2-5.4 M/uL Hemoglobin 12.8 12.0-16.0 g/dL Hematocrit 39.0 37-47 % Mean Corpuscular Volume 94.9 80-100 fL Mean Corpuscular Hemoglobin 31.1 25-34 pg Mean Corpuscular Hemoglobin Concent 32.8 32-36 g/dl Platelet Count 162 130-400 K/uL Mean Platelet Volume 10.7 7.4-10.4 fL Neutrophils (%) (Auto) 75.3 % Lymphocytes (%) (Auto) 14.2 % Monocytes (%) (Auto) 10.0 % Eosinophils (%) (Auto) 0.0 % Basophils (%) (Auto) 0.1 % Neutrophils # (Auto) 6.19 1.4-6.5 K/uL Lymphocytes # (Auto) 1.17 1.2-3.4 K/uL Monocytes # (Auto) 0.82 0.11-0.59 K/uL Eosinophils # (Auto) 0.00 0-0.5 K/uL Basophils # (Auto) 0.01 0-0.2 K/uL RDW Standard Deviation 49.3 36.4-46.3 fL RDW Coefficient of Variation 14.3 11.5-14.5 % Immature Granulocyte % (Auto) 0.4 % Immature Granulocyte # (Auto) 0.03 0.00-0.02 K/uL Sodium Level 139 136-145 mmol/L Potassium Level 3.7 3.5-5.1 mmol/L Chloride Level 106 98-107 mmol/L Carbon Dioxide Level 29 21-32 mmol/L Anion Gap 4.0 3-11 mmol/L Blood Urea Nitrogen 17 7-18 mg/dl Creatinine 1.06 0.60-1.20 mg/dl Estimated GFR () 56.6 Estimated GFR (Non- 48.9 BUN/Creatinine Ratio 16.3 10-20 Random Glucose 86 70-99 mg/dl Calcium Level 9.4 8.5-10.1 mg/dl Total Bilirubin 0.3 0.2-1 mg/dl Direct Bilirubin < 0.1 0-0.2 mg/dl Aspartate Amino Transf (AST/SGOT) 13 15-37 U/L Alanine Aminotransferase (ALT/SGPT) 24 12-78 U/L Alkaline Phosphatase 90 45-117 U/L Total Creatine Kinase 84 26-192 U/L Creatine Kinase MB 2.2 0.5-3.6 ng/ml Total Protein 8.1 6.4-8.2 gm/dl Albumin 4.2 3.4-5.0 gm/dl Lipase 141 73-393 U/L Bedside Troponin I 0.050 0-0.045 ng/ml Test 06/20/17 20:25 06/20/17 22:15 Range/Units Bedside Lactic Acid Venous 0.85 0.90-1.70 mmol/L Microbiology Results 06/20/17 Blood Culture, Received Pending 06/20/17 Blood Culture, Received Pending Diagnostic Radiology CHEST ONE VIEW PORTABLE HISTORY: 82 years-old Female CHEST PAIN acute atypical chest pain COMPARISON: Chest radiograph 02/05/2017, CT 06/02/2016 TECHNIQUE: Portable AP view the chest FINDINGS: Cardiac silhouette is again moderately enlarged. Prior median sternotomy. Atherosclerosis with unchanged dilation of the thoracic aorta. There is no pneumothorax or pleural effusion. Chronic linear subsegmental opacities of the right lung base suggest atelectasis/scarring. There is chronic right hemidiaphragmatic elevation with blunting of the right costophrenic angle. Bones of the chest appear grossly intact. IMPRESSION: No acute process. EKG EKG-sinus rhythm, non-ischemic Impression Assessment and Plan 82 yo F with COPD who presents with worsening SOB and no improvement with outpatient treatment. 1. Acute COPD exacerbation -no hypoxia, increased dyspnea, wheezing throughout. No h/o VIOLETTA, however, Flu PCR is negative. CXR is clear of pneumonia and pt has been tolerating PO without issue. Excessive coughing-will give Robitussin AC. Will start Levaquin, Solumedrol 40 IV q6hrs, and continue home inhalers and duonebs. Pt is seen by pulm as outpatient and daughter is requesting an inpatient pulm consult, which was provided. 2. Elevated trop-no chest pain with normal EKG. Will trend serial enzymes, however, ACS is not likely in this clinical situation. 3. h/o aortic repair 4. CKD III-renally dose medications and avoid all nephrotoxic substances if poss 5. Depression-sertraline 6. Chronic diastolic CHF-compensated, cont home Lasix. 7. HTN-slightly elevated at this time. Will reassess when she is on the floor. 8. HARMEET-CPAP with nightly oxygen ordered per home regimen. DVT Prophy-Lovenox/SCD DNR per my conversation w she and her daughter on admission Dispo-to telemetry overnight while trending serial cardiac enzymes. Hanane Reyes, [facility] Level of Care Telemetry Resuscitation Status DO NOT RESUSCITATE VTE Prophylaxis VTE Risk Assessment Done? Y/N: Yes Risk Level: Moderate Given or contraindicated: Enoxaparin (Lovenox)SQ
[2017-06-20 22:49] LABS: INFLUENZA A PCR Neg for Influ A (NEG); INFLUENZA B PCR Neg for Influ B (NEG)
[2017-06-20 23:30] VITALS: BP 161/82; PULSE 90; TEMP 37.3; Ht 162.6 cm; Wt 88.1 kg
[2017-06-20] MEDS ORDERED: PATIENT'S HEIGHT AND/OR WEIGHT NEEDED SCH (23:45)
[2017-06-21] VITALS (9 sets, daily range): BP systolic 145–177; BP diastolic 55–78; PULSE 63–93; TEMP 36.7–38; O2SAT 90–97
[2017-06-21] MEDS ORDERED: LEVOFLOXACIN / D5W 750 MG in PREMIXED IN D5W 150 ML IV SCH
[2017-06-21] MEDS: ATORVASTATIN 20 MG TAB PO SCH ×2 (00:03→20:27)
[2017-06-21] MEDS: ACETAMINOPHEN 500 MG TAB PO SCH ×2 (00:04→20:26)
[2017-06-21] MEDS: GUAIFENESIN/CODEINE 200MG/20MG 10ML UDC PO PRN (00:08)
[2017-06-21] MEDS: METHYLPREDNISOLONE IV 40 MG in SYRINGE 0 ML IV SCH ×4 (01:43→20:26)
[2017-06-21] MEDS: ALBUT/IPRATROP 3MG/0.5MG NEB 3 ML VIAL INH SCH ×2 (07:21→11:23)
[2017-06-21 07:54] LABS: HEMATOCRIT 36.9 % (37-47); HEMOGLOBIN 12.2 g/dL (12.0-16.0); MEAN CELL VOLUME 93.7 fL (80-100); MEAN CORPUSCULAR HGB CONC 33.1 g/dl (32-36); MEAN PLATELET VOLUME 10.5 fL (7.4-10.4); PLATELET COUNT 141 K/uL (130-400); RED CELL DISTRIBUTION WIDTH CV 14.3 % (11.5-14.5); RED CELL DISTRIBUTION WIDTH SD 49.2 fL (36.4-46.3); WHITE BLOOD COUNT 7.61 K/uL (4.8-10.8)
[2017-06-21] MEDS: DULERA~ORDER AWAITING ACTION SCH ×2 (07:59→16:00)
[2017-06-21] MEDS: ASPIRIN 81 MG ECTAB PO SCH (08:00)
[2017-06-21] MEDS: FUROSEMIDE 40 MG TAB PO SCH (08:00)
[2017-06-21] MEDS: MULTIVITAMIN TAB PO SCH (08:01)
[2017-06-21] MEDS: SERTRALINE HCL 100 MG TAB PO SCH (08:01)
[2017-06-21] MEDS: CARVEDILOL 3.125 MG TAB PO SCH (08:02)
[2017-06-21] MEDS: LISINOPRIL 5 MG TAB PO SCH (08:02)
[2017-06-21] MEDS: PANTOprazole SOD 40 MG TAB PO SCH (08:02)
[2017-06-21] MEDS: CHOLECALCIFEROL 1000 INTER.UNIT TAB PO SCH (08:02)
[2017-06-21 08:29] LABS: CALCIUM 9.4 mg/dl (8.5-10.1); CREATININE 1.03 mg/dl (0.60-1.20); POTASSIUM 3.8 mmol/L (3.5-5.1)
[2017-06-21] MEDS: ENOXAPARIN 40 MG/0.4 ML SYR SQ SCH (08:49)
--- NOTE | 2017-06-21 13:12 | Pulmonary Consultation ---
History General Date of Service: Jun 21, 2017. Chief Complaint: shortness of breath Stated Complaint: Copd Exacerbation HPI The patient is a 82 year old female who presents to [facility] [address] with complaints of Copd Exacerbation. The patient's primary care provider is Amina Alcantar D.O.. She initially followed with Dr. Villela at [facility] and then transferred to [facility] [place] [place]. She followed with Dr. Lopez until her admission in 01/2017 when she was seen inpatient by Dr. Astorga. She then began to follow with him on an outpatient basis. She had her most recent PFTs in August 06, 2014. FEV 1.7/2.81/61%. FEV1 1.28/2.05/62%. No diffusion studies were reported. She had her most recent outpatient appointment with Dr. astorga 03/24/17. At that time, she seemed to be stable and was doing fairly well. Mrs. Hsu's worsening shortness of breath was realized in 2009 after the patient had aortic dissection repair at [facility]. During the procedure the patient had complications with a paralyzed hemidiaphragm on the right. Since that time, the patient has had ongoing difficulty with what she refers to his pneumonia. Review of films did not show pneumonia. During those times, she was treated for COPD exacerbation. She typically has no hypoxia and very little sputum production. She has no fever. She does have obstructive sleep apnea and uses her CPAP machine with nasal pillow with 2 L/m of supplemental oxygen bled in. She has no chest pain or tightness. She does describe some difficulty with forceful cough. She has no abdominal pain. The patient has had one bronchoscopy in the past performed by Dr. Villela . This revealed atypical squamous cells. Historian: patient, other (patient chart) Review of Systems A total of 12 systems was reviewed and is negative other than as listed above in the HPI All Other Symptoms All Other Systems: Reviewed and Negative Past Medical History Past Medical History: Medical Problems: (1) Anxiety (2) aortic dissection repair (3) CKD (chronic kidney disease), stage III (4) COPD (chronic obstructive pulmonary disease) (5) Depression (6) Diaphragm paralysis (7) Diastolic CHF, chronic (8) Diverticular disease of colon (9) History of aortic dissection (10) Hyperlipemia (11) Hypertension (12) Hypertensive heart disease (13) Hypoxia (14) Pneumonia (15) Sleep apnea (16) TMJ disease Past Surgical History: Surgical Problems: (1) Status post aortic dissection repair Family History Colon cancer MOTHER Coronary artery disease FATHER Diabetes mellitus MOTHER Social History Hx Tobacco Use In Past Year?: No Smoking Status: Unknown if Ever Smoked Alcohol: never Drug Use: none Marital status: Housing status: lives with significant other Occupational Status: retired Immunizations History of Influenza Vaccine: Yes Influenza Vaccine Date: Mar 07, 2016 History of Tetanus Vaccine?: Yes Tetanus Immunization Date: Jan 18, 2008 History of Pneumococcal: Yes Pneumococcal Date: Aug 13, 2014 History of Hepatitis B Vaccine: Unknown History of MDRO History of MDRO: No Allergies Coded Allergies: Bacitracin (Unverified Allergy, Mild, REDNESS, 02/03/17) Neomycin (Unverified Allergy, Mild, REDNESS, 02/03/17) Polymyxin B (Unverified Allergy, Mild, REDNESS, 02/03/17) Current Medications Reported Home Medications Medications Dose Route/Sig Max Daily Dose Days Date Category Dose Instructions Prednisone 10 Mg Tab 10 Mg PO TAPER UD 06/20/17 Reported 4 TABS FOR 2 DAYS, 3 TABS FOR 2 DAYS, 2 TABS FOR 2 DAYS, 1 TAB FOR 2 DAYS. Zithromax (Azithromycin) 250 Mg Tab 1 Pkt PO UD 5 06/20/17 Reported Ultram (Tramadol HCl) 50 Mg Tab 50 Mg PO Q6H PRN 02/03/17 Reported Lipitor (Atorvastatin) 40 Mg Tab 40 Mg PO QPM 02/03/17 Reported Aspirin Ec (Aspirin) 81 Mg Tab 81 Mg PO DAILY 02/03/17 Reported Amoxil (Amoxicillin) 500 Mg Cap 500 Mg PO 02/03/17 Reported 4 CAP PO 1 HOUR BEFORE PROCEDURE Levalbuterol HCl (Levalbuterol) 0.63 Mg/3 Ml Nebu 1 Dose INH Q6H PRN 02/03/17 Reported Vitamin D3 (Cholecalciferol) 1,000 Unit Tab 2 Tab PO DAILY 02/03/17 Reported Coreg (Carvedilol) 3.125 Mg Tab 3.125 Mg PO DAILY 02/03/17 Reported Dulera 200/5 Mcg (Mometasone Furoate-Formoterol) 1 Aer Aer 2 Puffs INH BID 02/03/17 Reported Ativan (Lorazepam) 0.5 Mg Tab 0.5 Mg PO TID PRN 02/03/17 Reported Ventolin Hfa (Albuterol) 200 Puffs/03348 Mcg Aers 2-4 Puffs INH Q4H PRN 02/03/17 Reported Zoloft (Sertraline HCl) 100 Mg Tab 150 Mg PO DAILY 06/02/16 Reported Tylenol (Acetaminophen) 500 Mg Tab 1,000 Mg PO HS 06/02/16 Reported Zestril (Lisinopril) 10 Mg Tab 5 Mg PO DAILY 07/02/13 Reported Protonix (Pantoprazole Sodium) 40 Mg Tab 40 Mg PO DAILY 07/02/13 Reported Oxygen Gas 2 Liters NA HS 06/18/11 Reported USE DIRECTED WITH C-PAP. Lasix (Furosemide) 40 Mg Tab 1.5 Tab PO DAILY 11/23/09 Reported Multivitamin (Multivitamins) Tab 1 Tab PO DAILY 11/23/09 Reported Physical Physical Exam Vital Signs: Date Time Temp Pulse Resp B/P (MAP) Pulse Ox O2 Delivery O2 Flow Rate FiO2 06/21/17 12:00 Room Air 06/21/17 11:23 74 16 91 Room Air 06/21/17 08:00 Room Air 06/21/17 07:35 36.7 73 20 162/78 (106) 93 Room Air 06/21/17 07:21 63 16 97 Nasal Cannula 2.0 06/21/17 05:07 69 150/55 (86) 06/21/17 04:00 Nasal Cannula 2.0 CPAP 06/21/17 03:40 36.8 71 20 168/66 (100) 94 Room Air 71 06/21/17 00:11 93 96 2.0 06/21/17 00:00 Nasal Cannula 2.0 CPAP 06/20/17 23:30 37.3 90 24 161/82 Nasal Cannula 2.0 06/20/17 23:08 76 20 176/71 94 Room Air 06/20/17 23:06 64 20 171/76 96 06/20/17 21:30 64 20 174/72 96 Room Air 06/20/17 21:08 62 06/20/17 20:32 94 06/20/17 20:32 Room Air 06/20/17 19:43 53 20 160/68 95 Room Air Weight in Kilograms: 89.9 GENERAL : No acute distress. Appears dyspneic with short sentences EYES: No icterus, gaze conjugate. PERRL NOSE: No evidence of epistaxis. MOUTH: No lesions or candidiasis. NECK: Supple. No stridor LUNGS: Wheezes at bilateral bases. No significant rhonchi. Decreased breath sounds. HEART: Regular, rate controlled. No murmur ABDOMEN: Soft, NT, ND, BS Present EXTREMITIES: No LE edema, pedal pulses intact NEURO: A&OX3 Diagnostics Labs Results Past 24 Hours Test 06/20/17 20:05 06/20/17 20:15 06/20/17 20:23 06/20/17 20:25 Range/Units Creatine Kinase MB Ratio 2.6 0-3.0 White Blood Count 8.22 4.8-10.8 K/uL Red Blood Count 4.11 4.2-5.4 M/uL Hemoglobin 12.8 12.0-16.0 g/dL Hematocrit 39.0 37-47 % Mean Corpuscular Volume 94.9 80-100 fL Mean Corpuscular Hemoglobin 31.1 25-34 pg Mean Corpuscular Hemoglobin Concent 32.8 32-36 g/dl Platelet Count 162 130-400 K/uL Mean Platelet Volume 10.7 7.4-10.4 fL Neutrophils (%) (Auto) 75.3 % Lymphocytes (%) (Auto) 14.2 % Monocytes (%) (Auto) 10.0 % Eosinophils (%) (Auto) 0.0 % Basophils (%) (Auto) 0.1 % Neutrophils # (Auto) 6.19 1.4-6.5 K/uL Lymphocytes # (Auto) 1.17 1.2-3.4 K/uL Monocytes # (Auto) 0.82 0.11-0.59 K/uL Eosinophils # (Auto) 0.00 0-0.5 K/uL Basophils # (Auto) 0.01 0-0.2 K/uL RDW Standard Deviation 49.3 36.4-46.3 fL RDW Coefficient of Variation 14.3 11.5-14.5 % Immature Granulocyte % (Auto) 0.4 % Immature Granulocyte # (Auto) 0.03 0.00-0.02 K/uL Prothrombin Time 10.3 9.0-12.0 SECONDS Prothromb Time International Ratio 1.0 0.9-1.1 Sodium Level 139 136-145 mmol/L Potassium Level 3.7 3.5-5.1 mmol/L Chloride Level 106 98-107 mmol/L Carbon Dioxide Level 29 21-32 mmol/L Anion Gap 4.0 3-11 mmol/L Blood Urea Nitrogen 17 7-18 mg/dl Creatinine 1.06 0.60-1.20 mg/dl Estimated GFR () 56.6 Estimated GFR (Non- 48.9 BUN/Creatinine Ratio 16.3 10-20 Random Glucose 86 70-99 mg/dl Calcium Level 9.4 8.5-10.1 mg/dl Total Bilirubin 0.3 0.2-1 mg/dl Direct Bilirubin < 0.1 0-0.2 mg/dl Aspartate Amino Transf (AST/SGOT) 13 15-37 U/L Alanine Aminotransferase (ALT/SGPT) 24 12-78 U/L Alkaline Phosphatase 90 45-117 U/L Total Creatine Kinase 84 26-192 U/L Creatine Kinase MB 2.2 0.5-3.6 ng/ml Total Protein 8.1 6.4-8.2 gm/dl Albumin 4.2 3.4-5.0 gm/dl Lipase 141 73-393 U/L Bedside Troponin I 0.050 0-0.045 ng/ml Bedside Lactic Acid Venous 0.85 0.90-1.70 mmol/L Test 06/21/17 01:59 06/21/17 07:38 Range/Units Troponin I 0.090 0.086 0-0.045 ng/ml White Blood Count 7.61 4.8-10.8 K/uL Red Blood Count 3.94 4.2-5.4 M/uL Hemoglobin 12.2 12.0-16.0 g/dL Hematocrit 36.9 37-47 % Mean Corpuscular Volume 93.7 80-100 fL Mean Corpuscular Hemoglobin 31.0 25-34 pg Mean Corpuscular Hemoglobin Concent 33.1 32-36 g/dl RDW Standard Deviation 49.2 36.4-46.3 fL RDW Coefficient of Variation 14.3 11.5-14.5 % Platelet Count 141 130-400 K/uL Mean Platelet Volume 10.5 7.4-10.4 fL Sodium Level 138 136-145 mmol/L Potassium Level 3.8 3.5-5.1 mmol/L Chloride Level 104 98-107 mmol/L Carbon Dioxide Level 23 21-32 mmol/L Anion Gap 12.0 3-11 mmol/L Blood Urea Nitrogen 16 7-18 mg/dl Creatinine 1.03 0.60-1.20 mg/dl Est Creatinine Clear Calc Drug Dose 45.7 ml/min Estimated GFR () 58.6 Estimated GFR (Non- 50.6 BUN/Creatinine Ratio 15.9 10-20 Random Glucose 151 70-99 mg/dl Calcium Level 9.4 8.5-10.1 mg/dl Microbiology Results 06/20/17 Blood Culture, Received Pending 06/20/17 Blood Culture, Received Pending Diagnostic Radiology CHEST ONE VIEW PORTABLE HISTORY: 82 years-old Female CHEST PAIN acute atypical chest pain COMPARISON: Chest radiograph 02/05/2017, CT 06/02/2016 TECHNIQUE: Portable AP view the chest FINDINGS: Cardiac silhouette is again moderately enlarged. Prior median sternotomy. Atherosclerosis with unchanged dilation of the thoracic aorta. There is no pneumothorax or pleural effusion. Chronic linear subsegmental opacities of the right lung base suggest atelectasis/scarring. There is chronic right hemidiaphragmatic elevation with blunting of the right costophrenic angle. Bones of the chest appear grossly intact. IMPRESSION: No acute process. The above report was generated using voice recognition software. It may contain grammatical, syntax or spelling errors. Electronically signed by: Anselmo Glass M.D. 06/20/2017 8:35 PM Impression Assessment and Plan COPD EXACERBATION * Patient started with her rescue kit on Monday including Azithromycin and prednisone * Started on Levofloxacin on admission - would hold as CXR is clear and patient' s QTc is prolonged at 501 * If antibiotics are added, would suggest doxycycline * Continue with IV methylprednisolone * Oxygenation adequate on room air * Continue supportive care with aggressive pulmonary toilet HARMEET * Home CPAP with a nasal mask * Patient did not tolerate full face mask last night * Suggested that family bring in home CPAP and home nasal mask ID * Afberile * No leukocytosis * Negative for influenza A&B via Ag and PCR DVT PROPHYLAXIS * Enoxaparin Thank you for including us in the care of this patient. We will follow along with you. Note Total Time (mins): 30
--- NOTE | 2017-06-21 16:04 | Progress Note ---
Internal Med Progress Note Date of Service: Jun 21, 2017. Provider Documentation: SUBJECTIVE: Patient seen at bedside. No acute distress. breathing on room air. No chest pain OBJECTIVE: General Appearance: no distress Head: normocephalic, atraumatic Eyes: normal inspection, sclerae normal ENT: hearing grossly normal, pharynx normal Neck: supple, no adenopathy Respiratory/Chest: CTABL, no wheezing Cardiovascular: regular rate, rhythm, no edema Abdomen/GI: normal bowel sounds, non tender, soft Back: normal inspection Extremities/Musculoskelatal: normal inspection, no pedal edema Neurologic/Psych: alert, normal mood/affect, oriented x 3 Skin: normal color ASSESSMENT & PLAN: 82 yo F with COPD who presents with worsening SOB and no improvement with outpatient treatment. Acute COPD exacerbation Started on Levofloxacin on admission - would hold off antibiotics as CXR is clear and patient's QTc is prolonged at 501 Continue with IV methylprednisolone Oxygenation adequate on room air Continue home inhalers and nebulizer treatments as needed Evaluated by pulmonary consult service HARMEET Home CPAP with a nasal mask is likely preferred by patient CKD III-renally dose medications and avoid all nephrotoxic substances if poss H/o aortic repair Chronic diastolic CHF-compensated, cont home Lasix. Elevated trop-no chest pain with normal EKG. troponin trended from 0.05 to 0.09 to 0.086. ACS is not likely in this clinical situation given. Possibly from demand ischemia from illness and CKD III continue carvedilol, lisinopril, statin Transthoracic Echocardiogram completed, pending report HTN - blood pressure improving, continue carvedilol, lisinopril Depression- mood is stable, continue sertraline DVT Prophy-Lovenox DNR as per conversation with admitting hospitalist physician, the patient, and the patient's daughter on admission Vital Signs: Date Time Temp Pulse Resp B/P (MAP) Pulse Ox O2 Delivery O2 Flow Rate FiO2 06/21/17 12:06 38.0 86 20 145/56 (85) 90 Room Air 06/21/17 12:00 Room Air 06/21/17 11:23 74 16 91 Room Air 06/21/17 08:00 Room Air 06/21/17 07:35 36.7 73 20 162/78 (106) 93 Room Air 06/21/17 07:21 63 16 97 Nasal Cannula 2.0 06/21/17 05:07 69 150/55 (86) 06/21/17 04:00 Nasal Cannula 2.0 CPAP 06/21/17 03:40 36.8 71 20 168/66 (100) 94 Room Air 71 06/21/17 00:11 93 96 2.0 06/21/17 00:00 Nasal Cannula 2.0 CPAP 06/20/17 23:30 37.3 90 24 161/82 Nasal Cannula 2.0 06/20/17 23:08 76 20 176/71 94 Room Air 06/20/17 23:06 64 20 171/76 96 06/20/17 21:30 64 20 174/72 96 Room Air 06/20/17 21:08 62 06/20/17 20:32 94 06/20/17 20:32 Room Air 06/20/17 19:43 53 20 160/68 95 Room Air Lab Results: Results Past 24 Hours Test 06/20/17 20:05 06/20/17 20:15 06/20/17 20:23 06/20/17 20:25 Range/Units Creatine Kinase MB Ratio 2.6 0-3.0 White Blood Count 8.22 4.8-10.8 K/uL Red Blood Count 4.11 4.2-5.4 M/uL Hemoglobin 12.8 12.0-16.0 g/dL Hematocrit 39.0 37-47 % Mean Corpuscular Volume 94.9 80-100 fL Mean Corpuscular Hemoglobin 31.1 25-34 pg Mean Corpuscular Hemoglobin Concent 32.8 32-36 g/dl Platelet Count 162 130-400 K/uL Mean Platelet Volume 10.7 7.4-10.4 fL Neutrophils (%) (Auto) 75.3 % Lymphocytes (%) (Auto) 14.2 % Monocytes (%) (Auto) 10.0 % Eosinophils (%) (Auto) 0.0 % Basophils (%) (Auto) 0.1 % Neutrophils # (Auto) 6.19 1.4-6.5 K/uL Lymphocytes # (Auto) 1.17 1.2-3.4 K/uL Monocytes # (Auto) 0.82 0.11-0.59 K/uL Eosinophils # (Auto) 0.00 0-0.5 K/uL Basophils # (Auto) 0.01 0-0.2 K/uL RDW Standard Deviation 49.3 36.4-46.3 fL RDW Coefficient of Variation 14.3 11.5-14.5 % Immature Granulocyte % (Auto) 0.4 % Immature Granulocyte # (Auto) 0.03 0.00-0.02 K/uL Prothrombin Time 10.3 9.0-12.0 SECONDS Prothromb Time International Ratio 1.0 0.9-1.1 Sodium Level 139 136-145 mmol/L Potassium Level 3.7 3.5-5.1 mmol/L Chloride Level 106 98-107 mmol/L Carbon Dioxide Level 29 21-32 mmol/L Anion Gap 4.0 3-11 mmol/L Blood Urea Nitrogen 17 7-18 mg/dl Creatinine 1.06 0.60-1.20 mg/dl Estimated GFR () 56.6 Estimated GFR (Non- 48.9 BUN/Creatinine Ratio 16.3 10-20 Random Glucose 86 70-99 mg/dl Calcium Level 9.4 8.5-10.1 mg/dl Total Bilirubin 0.3 0.2-1 mg/dl Direct Bilirubin < 0.1 0-0.2 mg/dl Aspartate Amino Transf (AST/SGOT) 13 15-37 U/L Alanine Aminotransferase (ALT/SGPT) 24 12-78 U/L Alkaline Phosphatase 90 45-117 U/L Total Creatine Kinase 84 26-192 U/L Creatine Kinase MB 2.2 0.5-3.6 ng/ml Total Protein 8.1 6.4-8.2 gm/dl Albumin 4.2 3.4-5.0 gm/dl Lipase 141 73-393 U/L Bedside Troponin I 0.050 0-0.045 ng/ml Bedside Lactic Acid Venous 0.85 0.90-1.70 mmol/L Test 06/21/17 01:59 06/21/17 07:38 Range/Units Troponin I 0.090 0.086 0-0.045 ng/ml White Blood Count 7.61 4.8-10.8 K/uL Red Blood Count 3.94 4.2-5.4 M/uL Hemoglobin 12.2 12.0-16.0 g/dL Hematocrit 36.9 37-47 % Mean Corpuscular Volume 93.7 80-100 fL Mean Corpuscular Hemoglobin 31.0 25-34 pg Mean Corpuscular Hemoglobin Concent 33.1 32-36 g/dl RDW Standard Deviation 49.2 36.4-46.3 fL RDW Coefficient of Variation 14.3 11.5-14.5 % Platelet Count 141 130-400 K/uL Mean Platelet Volume 10.5 7.4-10.4 fL Sodium Level 138 136-145 mmol/L Potassium Level 3.8 3.5-5.1 mmol/L Chloride Level 104 98-107 mmol/L Carbon Dioxide Level 23 21-32 mmol/L Anion Gap 12.0 3-11 mmol/L Blood Urea Nitrogen 16 7-18 mg/dl Creatinine 1.03 0.60-1.20 mg/dl Est Creatinine Clear Calc Drug Dose 45.7 ml/min Estimated GFR () 58.6 Estimated GFR (Non- 50.6 BUN/Creatinine Ratio 15.9 10-20 Random Glucose 151 70-99 mg/dl Calcium Level 9.4 8.5-10.1 mg/dl Microbiology Results 06/20/17 Blood Culture, Received Pending 06/20/17 Blood Culture, Received Pending
--- NOTE | 2017-06-21 19:10 | ECHOCARDIOGRAM REPORT ---
*NOTICE TO RECEIVING REPUBLICAN AGENCY This information is strictly Confidential and protected under [place] law. [place] law prohibits you from making any further disclosure of this information unless further disclosure is expressly permitted by the written consent of the person to whom it pertains or is authorized by law. A general authorization for the release of medical or other information is not sufficient for this purpose. Hospital accepts no responsibility if the information is made available to any other person, INCLUDING THE PATIENT. Interpretation Summary * Name: SATYA ADAME Study Date: 06/21/2017 09:28 AM BP: 162/78 mmHg * Patient Location: C.2T\S\S239\S\1 HR: 68 * : 1935 (M/d/yyyy) Gender: Female Height: 64 in * Age: 82 yrs Ethnicity: [place] Weight: 198 lb * Ordering Physician: Hanane Reyes * Referring Physician: Self, Referred * Performed By: Stephanie Hathaway, [facility] * * Reason For Study: ELEVATED TROPONIN * BSA: 1.9 m2 * -- Conclusions -- * The left ventricular wall motion is normal. * Ejection Fraction = 60-65%. * Aortic valve regurgitation is present, but not well quantitated on this study, however it appears to be moderate in severity. * Compared to the prior study dated 02/03/17, there has been no significant interval change. Procedure Details * A complete two-dimensional transthoracic echocardiogram was performed (2D, M-mode, Doppler and color flow Doppler). Left Ventricle * The left ventricle is normal in size. * There is normal left ventricular wall thickness. * Left ventricular systolic function is normal. * Ejection Fraction = 60-65%. * The left ventricular wall motion is normal. Right Ventricle * The right ventricle is normal size. * The right ventricular systolic function is normal as assessed by tricuspid annular plane systolic excursion (TAPSE) (normal >1.5 cm). Atria * The left atrial size is normal. * Right atrial size is normal. * There is no evidence of atrial septal defect, but resolution does not allow assessment for a patent foramen ovale. Mitral Valve * The mitral valve is normal. * There is no mitral valve stenosis. * Significant mitral regurgitation is absent. Tricuspid Valve * The tricuspid valve is normal. * There is no tricuspid stenosis. * Significant tricuspid regurgitation is absent. * Doppler findings do not suggest pulmonary hypertension. Aortic Valve * The aortic valve is not well visualized. * Aortic stenosis is absent. * Moderate aortic regurgitation. Pulmonic Valve * The pulmonary valve is not well seen, but the Doppler examination is normal without significant regurgitation or stenosis. Great Vessels * The aortic root and proximal ascending aorta are normal sized. Pericardium/Pleural * There is no pericardial effusion. Great Vessels * Normal inferior vena cava diameter and respiratory variation suggests normal central venous pressure. Left Ventricular Diastolic Function * Grade I diastolic dysfunction, (abnormal relaxation pattern). MMode 2D Measurements and Calculations IVSd 1.3 cm IVSs 1.4 cm LVIDd 5.4 cm LVIDs 4.7 cm LVPWd 1.3 cm LVPWs 1.4 cm IVS/LVPW 0.98 FS 12.6 % EDV(Teich) 141.2 ml ESV(Teich) 103.3 ml EF(Teich) 26.8 % EDV(cubed) 157.3 ml ESV(cubed) 105.1 ml EF(cubed) 33.2 % % IVS thick 12.0 % % LVPW thick 6.3 % LV mass(C)d 295.6 grams LV mass(C)dI 151.8 grams/m\S\2 LV mass(C)s 272.4 grams LV mass(C)sI 139.8 grams/m\S\2 SV(Teich) 37.9 ml SI(Teich) 19.4 ml/m\S\2 SV(cubed) 52.2 ml SI(cubed) 26.8 ml/m\S\2 Ao root diam 3.8 cm Ao root area 11.1 cm\S\2 LA dimension 3.4 cm LA/Ao 0.89 LVOT diam 1.9 cm LVOT area 2.9 cm\S\2 LVAd ap4 38.8 cm\S\2 LVLd ap4 8.4 cm EDV(MOD-sp4) 145.9 ml EDV(sp4-el) 151.6 ml LVAs ap4 21.0 cm\S\2 LVLs ap4 6.2 cm ESV(MOD-sp4) 59.9 ml ESV(sp4-el) 60.3 ml EF(MOD-sp4) 58.9 % EF(sp4-el) 60.2 % LVAd ap2 30.8 cm\S\2 LVLd ap2 7.8 cm EDV(MOD-sp2) 96.4 ml EDV(sp2-el) 103.6 ml LVAs ap2 19.7 cm\S\2 LVLs ap2 6.8 cm ESV(MOD-sp2) 46.9 ml ESV(sp2-el) 48.4 ml EF(MOD-sp2) 51.3 % EF(sp2-el) 53.2 % LVLd %diff -8.79 % EDV(MOD-bp) 121.4 ml LVLs %diff 9.1 % ESV(MOD-bp) 55.5 ml EF(MOD-bp) 54.3 % SV(MOD-sp4) 85.9 ml SI(MOD-sp4) 44.1 ml/m\S\2 SV(MOD-sp2) 49.4 ml SI(MOD-sp2) 25.4 ml/m\S\2 SV(MOD-bp) 65.9 ml SI(MOD-bp) 33.8 ml/m\S\2 SV(sp4-el) 91.3 ml SI(sp4-el) 46.9 ml/m\S\2 SV(sp2-el) 55.1 ml SI(sp2-el) 28.3 ml/m\S\2 Doppler Measurements and Calculations MV E max radha 104.1 cm/sec MV A max radha 125.1 cm/sec MV E/A 0.83 MV P1/2t max radha 102.7 cm/sec MV P1/2t 71.1 msec MVA(P1/2t) 3.1 cm\S\2 MV dec slope 422.9 cm/sec\S\2 MV dec time 0.20 sec Ao V2 max 205.9 cm/sec Ao max PG 17.0 mmHg Ao max PG (full) 4.6 mmHg RAMON(V,A) 2.5 cm\S\2 RAMON(V,D) 2.5 cm\S\2 AI max radha 456.5 cm/sec AI max PG 83.4 mmHg AI dec slope 237.5 cm/sec\S\2 AI P1/2t 563.0 msec LV V1 max PG 12.4 mmHg LV V1 max 175.7 cm/sec MR max radha 535.4 cm/sec MR max PG 114.7 mmHg
[2017-06-21] MEDS: TRAMADOL HCL 50 MG TAB PO PRN (19:40)
[2017-06-22] VITALS (14 sets, daily range): BP systolic 148–188; BP diastolic 68–91; PULSE 56–76; TEMP 36.5–37.4; O2SAT 92–96
[2017-06-22] MEDS: METHYLPREDNISOLONE IV 40 MG in SYRINGE 0 ML IV SCH ×2 (02:18→08:47)
[2017-06-22 07:09] LABS: BASO % 0.1 %; BASO ABS # 0.01 K/uL (0-0.2); HEMOGLOBIN 13.1 g/dL (12.0-16.0); IG# 0.03 K/uL (0.00-0.02); LYMPH % 8.7 %; LYMPH ABS # 0.82 K/uL (1.2-3.4); MEAN CORPUSCULAR HEMOGLOBIN 31.6 pg (25-34); MEAN CORPUSCULAR HGB CONC 33.6 g/dl (32-36); MONO % 6.7 %; MONO ABS # 0.63 K/uL (0.11-0.59); NEUT % 84.2 %; NEUT ABS # 7.93 K/uL (1.4-6.5); PLATELET COUNT 171 K/uL (130-400); RED CELL DISTRIBUTION WIDTH CV 14.5 % (11.5-14.5); RED CELL DISTRIBUTION WIDTH SD 49.2 fL (36.4-46.3); WHITE BLOOD COUNT 9.42 K/uL (4.8-10.8)
[2017-06-22 07:44] LABS: ALBUMIN 3.8 gm/dl (3.4-5.0); CALCIUM 9.5 mg/dl (8.5-10.1); CREATININE 1.05 mg/dl (0.60-1.20); POTASSIUM 3.8 mmol/L (3.5-5.1)
[2017-06-22 07:47] LABS: TOTAL PROTEIN 7.3 gm/dl (6.4-8.2)
[2017-06-22] MEDS: DULERA~ORDER AWAITING ACTION SCH ×4 (08:44→23:49)
[2017-06-22] MEDS: ASPIRIN 81 MG ECTAB PO SCH (08:45)
[2017-06-22] MEDS: SERTRALINE HCL 100 MG TAB PO SCH (08:46)
[2017-06-22] MEDS: LISINOPRIL 5 MG TAB PO SCH (08:46)
[2017-06-22] MEDS: CHOLECALCIFEROL 1000 INTER.UNIT TAB PO SCH (08:46)
[2017-06-22] MEDS: MULTIVITAMIN TAB PO SCH (08:46)
[2017-06-22] MEDS: FUROSEMIDE 40 MG TAB PO SCH (08:47)
[2017-06-22] MEDS: CARVEDILOL 3.125 MG TAB PO SCH (08:47)
[2017-06-22] MEDS: PANTOprazole SOD 40 MG TAB PO SCH (08:47)
[2017-06-22] MEDS: ENOXAPARIN 40 MG/0.4 ML SYR SQ SCH (08:48)
--- NOTE | 2017-06-22 12:18 | Progress Note ---
Internal Med Progress Note Date of Service: Jun 22, 2017. Provider Documentation: SUBJECTIVE: Patient seen at bedside. No acute distress. Patient reports that she was able to ambulate without oxygen in the hallway. By the 3rd time she walked the hallway, she felt winded and sat down on her bed and she put on the nasal cannula OBJECTIVE: General Appearance: no distress Head: normocephalic, atraumatic Eyes: normal inspection, sclerae normal ENT: hearing grossly normal, pharynx normal Neck: supple, no adenopathy Respiratory/Chest: CTABL, no wheezing Cardiovascular: regular rate, rhythm, no edema Abdomen/GI: normal bowel sounds, non tender, soft Back: normal inspection Extremities/Musculoskelatal: normal inspection, no pedal edema Neurologic/Psych: alert, normal mood/affect, oriented x 3 Skin: normal color ASSESSMENT & PLAN: 82 yo F with COPD who presents with worsening SOB and no improvement with outpatient treatment. Acute COPD exacerbation Started on Levofloxacin on admission - hold off antibiotics as CXR is clear and patient's QTc is prolonged at 501 Continue with IV methylprednisolone - attempt to transition to oral prednisone by tomorrow Continue home inhalers, and nebulizer treatments as needed Evaluated by pulmonary consult service - patient will need outpatient follow up with Dr. Astorga HARMEET Continue CPAP CKD III-renally dose medications Elevated troponins but o chest pain with normal EKG. Troponin trended from 0.05 to 0.09 to 0.086. Acute Coronary Syndrome is not likely in this clinical situation of COPD. Possibly from demand ischemia from illness and CKD III Continue carvedilol, lisinopril, statin Chronic diastolic CHF-compensated, cont home Lasix. Transthoracic Echocardiogram completed 06/21/17 The left ventricular wall motion is normal. Ejection Fraction = 60-65%. Aortic valve regurgitation is present, but not well quantitated on this study, however it appears to be moderate in severity. Compared to the prior study dated 02/03/17, there has been no significant interval change History of aortic repair Hypertension - continue carvedilol, lisinopril. start hydralazine prn for systolic blood pressure above 160 Depression- mood is stable, continue sertraline DVT Ppx - Lovenox DNR as per conversation with admitting hospitalist physician, the patient, and the patient's daughter on admission Patient's daughter's phone number is [phone] Disposition: planning for hospital discharge tomorrow if patient continues to breathe comfortably and transitioned from IV steroids to PO steroids Follow up with primary care doctor: 06/27/17 12:45 PM Amina Alcantar, DO Internal Medicine [facility] Patient will need follow up with [facility] Dr. Astorga after hospital discharge Patient will need to to follow up with [facility] cardiology. Appointments for [facility] affiliated clinics can be made by calling Vital Signs: Date Time Temp Pulse Resp B/P (MAP) Pulse Ox O2 Delivery O2 Flow Rate FiO2 06/22/17 12:00 Nasal Cannula 2.0 06/22/17 11:19 36.6 56 20 188/78 (114) 95 Room Air 06/22/17 10:30 68 96 06/22/17 08:00 Nasal Cannula 2.0 06/22/17 07:31 36.7 57 20 185/84 (117) 94 Nasal Cannula 2.0 178/91 (120) 06/22/17 04:00 Room Air CPAP 06/22/17 03:33 37.1 57 21 169/74 (105) 94 BiPAP 06/22/17 00:36 37.4 66 20 164/75 (104) 93 BiPAP 06/22/17 00:00 Room Air CPAP 06/21/17 20:00 Room Air CPAP 06/21/17 19:17 37.5 65 18 177/70 (105) 92 Room Air 06/21/17 16:00 Room Air 06/21/17 15:23 36.7 63 19 153/73 (99) 91 Room Air Lab Results: Results Past 24 Hours Test 06/22/17 06:38 Range/Units White Blood Count 9.42 4.8-10.8 K/uL Red Blood Count 4.15 4.2-5.4 M/uL Hemoglobin 13.1 12.0-16.0 g/dL Hematocrit 39.0 37-47 % Mean Corpuscular Volume 94.0 80-100 fL Mean Corpuscular Hemoglobin 31.6 25-34 pg Mean Corpuscular Hemoglobin Concent 33.6 32-36 g/dl Platelet Count 171 130-400 K/uL Mean Platelet Volume 11.0 7.4-10.4 fL Neutrophils (%) (Auto) 84.2 % Lymphocytes (%) (Auto) 8.7 % Monocytes (%) (Auto) 6.7 % Eosinophils (%) (Auto) 0.0 % Basophils (%) (Auto) 0.1 % Neutrophils # (Auto) 7.93 1.4-6.5 K/uL Lymphocytes # (Auto) 0.82 1.2-3.4 K/uL Monocytes # (Auto) 0.63 0.11-0.59 K/uL Eosinophils # (Auto) 0.00 0-0.5 K/uL Basophils # (Auto) 0.01 0-0.2 K/uL RDW Standard Deviation 49.2 36.4-46.3 fL RDW Coefficient of Variation 14.5 11.5-14.5 % Immature Granulocyte % (Auto) 0.3 % Immature Granulocyte # (Auto) 0.03 0.00-0.02 K/uL Sodium Level 138 136-145 mmol/L Potassium Level 3.8 3.5-5.1 mmol/L Chloride Level 103 98-107 mmol/L Carbon Dioxide Level 27 21-32 mmol/L Anion Gap 8.0 3-11 mmol/L Blood Urea Nitrogen 28 7-18 mg/dl Creatinine 1.05 0.60-1.20 mg/dl Est Creatinine Clear Calc Drug Dose 44.8 ml/min Estimated GFR () 57.3 Estimated GFR (Non- 49.4 BUN/Creatinine Ratio 26.4 10-20 Random Glucose 120 70-99 mg/dl Calcium Level 9.5 8.5-10.1 mg/dl Total Bilirubin 0.3 0.2-1 mg/dl Aspartate Amino Transf (AST/SGOT) 11 15-37 U/L Alanine Aminotransferase (ALT/SGPT) 21 12-78 U/L Alkaline Phosphatase 84 45-117 U/L Total Protein 7.3 6.4-8.2 gm/dl Albumin 3.8 3.4-5.0 gm/dl Globulin 3.5 2.5-4.0 gm/dl Albumin/Globulin Ratio 1.1 0.9-2
[2017-06-22] MEDS: HydrALAZINE HCL 20 MG/ML VIAL IV. PRN ×2 (12:39→20:39)
[2017-06-22] MEDS: LEVALBUTEROL 0.63MG/3 ML NEB INH PRN ×2 (14:06→22:00)
--- NOTE | 2017-06-22 19:08 | Pulmonology Progress Note ---
Pulmonary Progress Note Date of Service Jun 22, 2017. Attending Dr. Rivas Subjective Patient reports improvement but continues with KNIGHT with minimal activity. Although, she was able to ambulate in the hallway and do 2 full laps with some rest. She has no chest pain or tightness. She denies fever or chills. Continues with cough but no production of sputum. Objective Vital Signs - as noted below Laboratory Data - as noted below Physical Exam: General - NAD. Able to speak in full sentences without significant dyspnea Eyes - No icterus, gaze conjugate ENT - Mucosa moist, no lesions or candidiasis Neck - Supple, No JVD Lungs - No bronchospasm, rales, or rhonchi. Heart - Regular, rate controlled Abdomen - Soft, NT, ND, BS present Extremities - No edema, pedal pulses intact Neuro - A&OX3 Assessment & Plan COPD EXACERBATION * Patient started with her rescue kit on Monday including Azithromycin and prednisone * Started on Levofloxacin on admission - would hold as CXR is clear and patient' s QTc is prolonged at 501 * If antibiotics are added, would suggest doxycycline * Continue with steroids but change to a prednisone taper * Oxygenation continues to be adequate on room air * Continue supportive care with aggressive pulmonary toilet HARMEET * Home CPAP with home nasal mask ID * Afberile * No leukocytosis * Negative for influenza A&B via Ag and PCR DVT PROPHYLAXIS * Enoxaparin * Ambulate as tolerated Thank you for including us in the care of this patient. We will sign off at this time. Patient ok to discharge home from a pulmonary standpoint Data Medications: Current Inpatient Medications Medications (Trade) Dose Ordered Sig/Maricel Route Start Time Stop Time Status Last Admin Dose Admin Enoxaparin Sodium (Lovenox Inj) 40 mg DAILY SQ 06/21/17 09:00 07/21/17 08:59 06/22/17 08:48 40 MG Acetaminophen (Tylenol Tab) 650 mg Q4H PRN PO 06/20/17 22:15 07/20/17 22:14 Polyethylene (Miralax Powder Packet) 17 gm DAILY PRN PO 06/20/17 22:15 07/20/17 22:14 Ondansetron HCl (Zofran Inj) 4 mg Q6H PRN IV 06/20/17 22:15 07/20/17 22:14 Codeine Phosphate/ Guaifenesin (Robitussin-AC Sugar Free Syrup) 10 ml Q6H PRN PO 06/20/17 22:15 07/20/17 22:14 06/21/17 00:08 10 ML Acetaminophen (Tylenol Tab) 1,000 mg HS PO 06/20/17 22:30 07/20/17 22:29 06/21/17 00:04 1,000 MG Aspirin (Ecotrin Tab) 81 mg DAILY PO 06/21/17 09:00 07/21/17 08:59 06/22/17 08:45 81 MG Atorvastatin Calcium (Lipitor Tab) 40 mg QPM PO 06/20/17 22:30 07/20/17 22:29 06/21/17 20:27 40 MG Carvedilol (Coreg Tab) 3.125 mg DAILY PO 06/21/17 09:00 07/21/17 08:59 06/22/17 08:47 3.125 MG Cholecalciferol (Vitamin D Tab) 2,000 inter.unit DAILY PO 06/21/17 09:00 07/21/17 08:59 06/22/17 08:46 2,000 INTER.UNIT Furosemide (Lasix Tab) 60 mg DAILY PO 06/21/17 09:00 07/21/17 08:59 06/22/17 08:47 60 MG Lisinopril (Zestril Tab) 5 mg DAILY PO 06/21/17 09:00 07/21/17 08:59 06/22/17 08:46 5 MG Multivitamins (Multivitamin Tab) 1 tab DAILY PO 06/21/17 09:00 07/21/17 08:59 06/22/17 08:46 1 TAB Pantoprazole Sodium (Protonix Tab) 40 mg DAILY PO 06/21/17 09:00 07/21/17 08:59 06/22/17 08:47 40 MG Sertraline HCl (Zoloft Tab) 150 mg DAILY PO 06/21/17 09:00 07/21/17 08:59 06/22/17 08:46 150 MG Tramadol HCl (Ultram Tab) 50 mg Q6H PRN PO 06/20/17 22:30 07/20/17 22:29 06/21/17 19:40 50 MG Miscellaneous Information (Order Awaiting Action) 1 ea QS N/A 06/21/17 08:00 07/21/17 07:59 Levalbuterol (Xopenex 0.63 Mg/ 3 Ml Neb) 0.63 mg Q6R PRN INH 06/21/17 12:00 07/21/17 11:59 06/22/17 14:06 0.63 MG Hydralazine HCl (HydrALAZINE INJ) 10 mg Q6H PRN IV. 06/22/17 12:30 07/22/17 12:29 06/22/17 12:39 10 MG Prednisone (PredniSONE TAB) 40 mg DAILY PO 06/23/17 09:00 07/23/17 08:59 I & O: 24-Hour Column 06/23/17 08:00 Intake Total 450 ml Output Total 1125 ml Balance -675 ml Vital Signs: Date Time Temp Pulse Resp B/P (MAP) Pulse Ox O2 Delivery O2 Flow Rate FiO2 06/22/17 16:00 92 Room Air 06/22/17 15:15 36.7 62 24 92 Room Air 06/22/17 14:07 68 20 93 BiPAP/CPAP 2.0 06/22/17 14:07 68 93 2.0 06/22/17 13:58 150/74 (99) 06/22/17 12:00 Room Air 06/22/17 11:19 36.6 56 20 188/78 (114) 95 Room Air 06/22/17 10:30 68 96 06/22/17 08:00 Nasal Cannula 2.0 06/22/17 07:31 36.7 57 20 185/84 (117) 94 Nasal Cannula 2.0 178/91 (120) 06/22/17 04:00 Room Air CPAP 06/22/17 03:33 37.1 57 21 169/74 (105) 94 BiPAP 06/22/17 00:36 37.4 66 20 164/75 (104) 93 BiPAP 06/22/17 00:00 Room Air CPAP 06/21/17 20:00 Room Air CPAP 06/21/17 19:17 37.5 65 18 177/70 (105) 92 Room Air Laboratory Results: Last 24 Hours Test 06/22/17 06:38 White Blood Count 9.42 K/uL Red Blood Count 4.15 M/uL Hemoglobin 13.1 g/dL Hematocrit 39.0 % Mean Corpuscular Volume 94.0 fL Mean Corpuscular Hemoglobin 31.6 pg Mean Corpuscular Hemoglobin Concent 33.6 g/dl Platelet Count 171 K/uL Mean Platelet Volume 11.0 fL Neutrophils (%) (Auto) 84.2 % Lymphocytes (%) (Auto) 8.7 % Monocytes (%) (Auto) 6.7 % Eosinophils (%) (Auto) 0.0 % Basophils (%) (Auto) 0.1 % Neutrophils # (Auto) 7.93 K/uL Lymphocytes # (Auto) 0.82 K/uL Monocytes # (Auto) 0.63 K/uL Eosinophils # (Auto) 0.00 K/uL Basophils # (Auto) 0.01 K/uL RDW Standard Deviation 49.2 fL RDW Coefficient of Variation 14.5 % Immature Granulocyte % (Auto) 0.3 % Immature Granulocyte # (Auto) 0.03 K/uL Sodium Level 138 mmol/L Potassium Level 3.8 mmol/L Chloride Level 103 mmol/L Carbon Dioxide Level 27 mmol/L Anion Gap 8.0 mmol/L Blood Urea Nitrogen 28 mg/dl Creatinine 1.05 mg/dl Est Creatinine Clear Calc Drug Dose 44.8 ml/min Estimated GFR () 57.3 Estimated GFR (Non- 49.4 BUN/Creatinine Ratio 26.4 Random Glucose 120 mg/dl Calcium Level 9.5 mg/dl Total Bilirubin 0.3 mg/dl Aspartate Amino Transf (AST/SGOT) 11 U/L Alanine Aminotransferase (ALT/SGPT) 21 U/L Alkaline Phosphatase 84 U/L Total Protein 7.3 gm/dl Albumin 3.8 gm/dl Globulin 3.5 gm/dl Albumin/Globulin Ratio 1.1
[2017-06-22] MEDS: ATORVASTATIN 20 MG TAB PO SCH (20:25)
[2017-06-22] MEDS: ACETAMINOPHEN 500 MG TAB PO SCH (20:27)
[2017-06-22] MEDS: TRAMADOL HCL 50 MG TAB PO PRN (20:27)
[2017-06-23] VITALS (13 sets, daily range): BP systolic 116–178; BP diastolic 66–76; PULSE 53–107; TEMP 36.3–36.7; O2SAT 91–98
[2017-06-23] MEDS: DULERA~ORDER AWAITING ACTION SCH ×2 (08:00→15:47)
[2017-06-23] MEDS: SERTRALINE HCL 100 MG TAB PO SCH (08:19)
[2017-06-23] MEDS: MULTIVITAMIN TAB PO SCH (08:20)
[2017-06-23] MEDS: CHOLECALCIFEROL 1000 INTER.UNIT TAB PO SCH (08:20)
[2017-06-23] MEDS: ATORVASTATIN 20 MG TAB PO SCH (08:21)
[2017-06-23] MEDS: ASPIRIN 81 MG ECTAB PO SCH (08:21)
[2017-06-23] MEDS: FUROSEMIDE 40 MG TAB PO SCH (08:22)
[2017-06-23] MEDS: LISINOPRIL 5 MG TAB PO SCH (08:23)
[2017-06-23] MEDS: PANTOprazole SOD 40 MG TAB PO SCH (08:23)
[2017-06-23] MEDS: ENOXAPARIN 40 MG/0.4 ML SYR SQ SCH (08:24)
[2017-06-23] MEDS: CARVEDILOL 3.125 MG TAB PO SCH (08:25)
[2017-06-23] MEDS: HydrALAZINE HCL 20 MG/ML VIAL IV. PRN (10:41)
[2017-06-23] MEDS: LEVALBUTEROL 0.63MG/3 ML NEB INH PRN (11:59)
[2017-06-23] MEDS: FLUTICASONE PROPIONATE NA SPR 16 GM BTL SCH (14:55)
[2017-06-23] MEDS: GUAIFENESIN/CODEINE 200MG/20MG 10ML UDC PO PRN (14:59)
[2017-06-23] MEDS ORDERED: MoRPHine SULFATE 2 MG/ML CARP IV STA (17:38)
[2017-06-23] MEDS ORDERED: MoRPHine SULFATE 2 MG/ML CARP ONE (17:40)
--- NOTE | 2017-06-23 17:46 | DIAGNOSTIC IMAGING REPORT ---
CHEST ONE VIEW PORTABLE CLINICAL HISTORY: Dyspnea, COPD Exacerbation COMPARISON STUDY: 06/20/2017 FINDINGS: Mild stable cardiomegaly. Findings of a prior median sternotomy. Chronic elevation right hemidiaphragm. Slight chronic blunting right lateral aspect angle area IMPRESSION: Stable exam with chronic and postoperative changes as noted. No acute process. The above report was generated using voice recognition software. It may contain grammatical, syntax or spelling errors. Electronically signed by: Saad Gomez M.D. 06/23/2017 5:45 PM Dictated Date/Time: 06/23/2017 5:44 PM
[2017-06-23] MEDS: METHYLPREDNISOLONE IV 30 MG in SYRINGE 0 ML IV SCH (18:33)
--- NOTE | 2017-06-23 19:29 | Cardiology Consultation ---
Cardiology Consultation Date of Consultation: Jun 23, 2017 History of Present Illness Caroline Hsu is an 82-year-old female seen in cardiology consultation per the request of Dr. Shea for the evaluation of tachycardia and mildly elevated troponin I measurements. The patient has a past history of surgical repair for a type a thoracic aortic dissection and follows with Dr. Rojas of our practice. The patient presented to the hospital on 06/20/17 and shortness of breath and is being treated for a COPD exacerbation. She has a history of diaphragm paralysis that has been an issue since her past thoracic surgery. Cardiology was asked see the patient today because on 06/21/16 she had a 5 beat run of nonsustained ventricular tachycardia. Today on 06/23/17 at 1750 she had a 17 beat run of supraventricular tachycardia. The patient is asymptomatic from a tachycardia standpoint. She is currently on her CPAP and is comfortable. She is being followed by pulmonary medicine. An EKG performed on 06/21/17 revealed sinus rhythm with occasional PACs and PVCs. Crit QT was noted to be prolonged at 501 ms. Her levofloxacin has since been is continued. 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 Type A aortic dissection took place in September 2009 with emergency repair at that time 2. 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 Chronic obstructive lung disease with recurrent pneumonia, COPD exacerbations 4. Obstructive sleep apnea, on CPAP and supplemental oxygen as outpatient 5. Hypertension with hypertensive heart disease 6. History of past diastolic heart failure 7. History of penetrating ulcer discerned on CT scan of the ascending thoracic aorta in August 2016 Past Surgical History: History of emergent type A thoracic aortic dissection repair 2009 Cataract extraction Social History: Former smoker, three quarters of pack per day for 45 years, quit in 2009 Family History: Family history of heart disease in her father who apparently had a myocardial infarctions the age of 80 Review Of Systems See above for pertinent positives & negatives. A total of 10 systems reviewed and were otherwise negative. Allergies Coded Allergies: Bacitracin (Unverified Allergy, Mild, REDNESS, 02/03/17) Neomycin (Unverified Allergy, Mild, REDNESS, 02/03/17) Polymyxin B (Unverified Allergy, Mild, REDNESS, 02/03/17) Medications Reported Home Medications Medications Dose Route/Sig Max Daily Dose Days Date Category Dose Instructions Prednisone 10 Mg Tab 10 Mg PO TAPER UD 06/20/17 Reported 4 TABS FOR 2 DAYS, 3 TABS FOR 2 DAYS, 2 TABS FOR 2 DAYS, 1 TAB FOR 2 DAYS. Zithromax (Azithromycin) 250 Mg Tab 1 Pkt PO UD 5 06/20/17 Reported Ultram (Tramadol HCl) 50 Mg Tab 50 Mg PO Q6H PRN 02/03/17 Reported Lipitor (Atorvastatin) 40 Mg Tab 40 Mg PO QPM 02/03/17 Reported Aspirin Ec (Aspirin) 81 Mg Tab 81 Mg PO DAILY 02/03/17 Reported Amoxil (Amoxicillin) 500 Mg Cap 500 Mg PO 02/03/17 Reported 4 CAP PO 1 HOUR BEFORE PROCEDURE Levalbuterol HCl (Levalbuterol) 0.63 Mg/3 Ml Nebu 1 Dose INH Q6H PRN 02/03/17 Reported Vitamin D3 (Cholecalciferol) 1,000 Unit Tab 2 Tab PO DAILY 02/03/17 Reported Coreg (Carvedilol) 3.125 Mg Tab 3.125 Mg PO DAILY 02/03/17 Reported Dulera 200/5 Mcg (Mometasone Furoate-Formoterol) 1 Aer Aer 2 Puffs INH BID 02/03/17 Reported Ativan (Lorazepam) 0.5 Mg Tab 0.5 Mg PO TID PRN 02/03/17 Reported Ventolin Hfa (Albuterol) 200 Puffs/14439 Mcg Aers 2-4 Puffs INH Q4H PRN 02/03/17 Reported Zoloft (Sertraline HCl) 100 Mg Tab 150 Mg PO DAILY 06/02/16 Reported Tylenol (Acetaminophen) 500 Mg Tab 1,000 Mg PO HS 06/02/16 Reported Zestril (Lisinopril) 10 Mg Tab 5 Mg PO DAILY 07/02/13 Reported Protonix (Pantoprazole Sodium) 40 Mg Tab 40 Mg PO DAILY 07/02/13 Reported Oxygen Gas 2 Liters NA HS 06/18/11 Reported USE DIRECTED WITH C-PAP. Lasix (Furosemide) 40 Mg Tab 1.5 Tab PO DAILY 11/23/09 Reported Multivitamin (Multivitamins) Tab 1 Tab PO DAILY 11/23/09 Reported Physical Exam Vital Signs (Last 8hrs): Last 8 Hrs Date Time Temp Pulse Resp B/P (MAP) Pulse Ox O2 Delivery O2 Flow Rate FiO2 06/23/17 18:26 67 98 2.0 06/23/17 16:00 Room Air CPAP 06/23/17 15:49 36.4 63 18 143/73 (96) 94 CPAP 06/23/17 12:00 36.3 66 18 136/66 (89) 91 Room Air 06/23/17 12:00 Room Air CPAP 06/23/17 11:59 68 18 95 Room Air General Appearance: Alert and Oriented x3. NAD. Head: Normocephalic Atraumatic. Eyes: PERRLA, EOMI, conjunctiva and sclera clear Neck: Supple. No carotid bruits noted. No JVD. No HJD. Respiratory: Coarse breath sounds bilaterally Cardiovascular: Reg rate and rhythm. S1 and S2 noted. No murmurs, rubs, gallops. PMI non displace. Abdomen: Normal bowel sounds, soft nontender. no abdominal bruits. Extremities: No edema, no clubbing or cyanosis. distal pulses 2/4 bilaterally. Neuro: No focal deficits. Psychiatric: Normal affect. Data EKG as noted above Transthoracic echocardiogram performed 06/21/17 and reviewed independently by the undersigned: Left ventricular wall motion was normal. Aortic valve regurgitation is present but not well quantitated but appears to be moderate in severity. No regional left ventricular wall motion abnormalities are noted. Compared to the prior study dated 02/03/17 there is been no significant interval change Assessment & Plan Impression: 82-year-old female 1. Mild troponin I elevation, due to myocardial strain in the setting of COPD exacerbation, hypoxia 2. 5 beat run of nonsustained ventricular tachycardia on 06/21/17, 17 beat run of supraventricular tachycardia on 06/23/17 3. History of type A thoracic aortic dissection 4. History of hypertension with hypertensive heart disease 5. History of aortic valve regurgitation, stable on transthoracic echocardiogram compared to January 2017 6. Prolonged QT interval this admission Recommendations: Agree with pulmonary medicine plan of discontinuing carvedilol and transitioned to metoprolol. I think beta ubaldo therapy is necessary for help with controlling her supraventricular arrhythmias and ventricular ectopy however, given her lung disease, metoprolol a be a better agent for her is a selective repeat cardiac beta receptors and has less chance of causing pulmonary side effects compared to carvedilol. The patient's electrolytes were stable today. She has had a very mild troponin elevation but I think this is not unexpected given her age and significant lung exacerbation do not think it represents an acute coronary syndrome. She had an echocardiogram this admission that revealed normal left ventricular wall motion. She has a stable degree of aortic valve regurgitation which at that we can continue to monitor, as noted above the patient does see Dr. Rojas's an outpatient. Levofloxacin has been discontinued. I'm going to repeat EKG tomorrow to follow- up her QT interval.
--- NOTE | 2017-06-23 19:38 | Pulmonology Progress Note ---
Pulmonary Progress Note Date of Service Jun 23, 2017. Attending Dr. Rivas Subjective Called to patient bedside for acute respiratory distress with audible wheezes. Patient was clearly anxious about shortness of breath. She denied any fever, chills, sweats, rigors. She had no chest pain. She indicated that she was having trouble swallowing and "could not get air in". Discussion with nursing revealed no hypoxia throughout the day the patient was tachypneic and anxious. Patient seen for approximately 40 minutes at bedside with daughter Lorraine at the bedside as well. Dr. Rivas was present for the entire visit and examination. Objective Vital Signs - as noted below Laboratory Data - as noted below Physical Exam: General -moderate acute distress Eyes - No icterus, gaze conjugate ENT - Mucosa moist, no lesions or candidiasis Neck - Supple, No JVD Lungs -acute respiratory distress with anxiety and use of accessory muscles. Diffuse bronchospasm. No rales or rhonchi. Positive tachypnea. No hypoxia. Heart - Regular, rate controlled Abdomen - Soft, NT, ND, BS present Extremities - No edema, pedal pulses intact Neuro - A&OX3 Assessment & Plan COPD EXACERBATION * Patient with acute exacerbation this afternoon * Adequate response to 2 mg of morphine and reassurance at bedside * Chest x-ray with no acute findings and no evidence of mucoid impaction. Persistent elevated right hemidiaphragm * Discontinue prednisone and restarted on IV methylprednisolone * Change from CPAP and begin BiPAP 04/19 HARMEET * Home CPAP with home nasal mask has been helpful * Change from CPAP to BiPAP due to acute COPD exacerbation ID * Afberile * No leukocytosis * Negative for influenza A&B via Ag and PCR DVT PROPHYLAXIS * Enoxaparin * Ambulate as tolerated Thank you for including us in the care of this patient. Pulmonary reengage for acute exacerbation this afternoon. Disposition: Anticipate the patient will need another 2-3 days of IV steroids followed by reevaluation over the weekend. Physician Supervision Note: I was present with Darrion GREEN during the history and exam. I discussed the case with him and agree with the findings and plan as documented in the note. Any exceptions or clarifications are listed here: Still with dyspnea, although not hypoxic. CXR repeated, no significant change. Right diaphragm still elevated Escalate steroids again to IV dosing Change CPAP to BIPAP tonight, may help with hypoventilation secondary to diaphragmatic paralysis Change Coreg to metoprolol. Coreg is a non-selective beta-ubaldo, whereas metoprolol is predominantly B1 selective, hopefully will lead to less wheezing. Morphine seem to help as well, anxiety plays a major role in her symptoms Documented By: Robert Rivas MD Data Medications: Current Inpatient Medications Medications (Trade) Dose Ordered Sig/Maricel Route Start Time Stop Time Status Last Admin Dose Admin Enoxaparin Sodium (Lovenox Inj) 40 mg DAILY SQ 06/21/17 09:00 07/21/17 08:59 06/23/17 08:24 40 MG Acetaminophen (Tylenol Tab) 650 mg Q4H PRN PO 06/20/17 22:15 07/20/17 22:14 Polyethylene (Miralax Powder Packet) 17 gm DAILY PRN PO 06/20/17 22:15 07/20/17 22:14 Ondansetron HCl (Zofran Inj) 4 mg Q6H PRN IV 06/20/17 22:15 07/20/17 22:14 Codeine Phosphate/ Guaifenesin (Robitussin-AC Sugar Free Syrup) 10 ml Q6H PRN PO 06/20/17 22:15 07/20/17 22:14 06/23/17 14:59 10 ML Acetaminophen (Tylenol Tab) 1,000 mg HS PO 06/20/17 22:30 07/20/17 22:29 06/21/17 00:04 1,000 MG Aspirin (Ecotrin Tab) 81 mg DAILY PO 06/21/17 09:00 07/21/17 08:59 06/23/17 08:21 81 MG Atorvastatin Calcium (Lipitor Tab) 40 mg QPM PO 06/20/17 22:30 07/20/17 22:29 06/23/17 08:21 40 MG Cholecalciferol (Vitamin D Tab) 2,000 inter.unit DAILY PO 06/21/17 09:00 07/21/17 08:59 06/23/17 08:20 2,000 INTER.UNIT Furosemide (Lasix Tab) 60 mg DAILY PO 06/21/17 09:00 07/21/17 08:59 06/23/17 08:22 60 MG Lisinopril (Zestril Tab) 5 mg DAILY PO 2/7/18 09:00 07/21/17 08:59 06/23/17 08:23 5 MG Multivitamins (Multivitamin Tab) 1 tab DAILY PO 06/21/17 09:00 07/21/17 08:59 06/23/17 08:20 1 TAB Pantoprazole Sodium (Protonix Tab) 40 mg DAILY PO 06/21/17 09:00 07/21/17 08:59 06/23/17 08:23 40 MG Sertraline HCl (Zoloft Tab) 150 mg DAILY PO 06/21/17 09:00 07/21/17 08:59 06/23/17 08:19 150 MG Tramadol HCl (Ultram Tab) 50 mg Q6H PRN PO 06/20/17 22:30 07/20/17 22:29 06/22/17 20:27 50 MG Miscellaneous Information (Order Awaiting Action) 1 ea QS N/A 06/21/17 08:00 07/21/17 07:59 Levalbuterol (Xopenex 0.63 Mg/ 3 Ml Neb) 0.63 mg Q6R PRN INH 06/21/17 12:00 07/21/17 11:59 06/23/17 11:59 0.63 MG Hydralazine HCl (HydrALAZINE INJ) 10 mg Q6H PRN IV. 06/22/17 12:30 07/22/17 12:29 06/23/17 10:41 10 MG Fluticasone Propionate (Flonase Nasal [place]) 1 sprays DAILY NA 06/24/17 14:00 07/24/17 13:59 06/23/17 14:55 1 SPRAYS Metoprolol Tartrate (Lopressor Tab) 25 mg BID PO 06/23/17 21:00 07/23/17 20:59 Methylprednisolone Sodium Succinate 30 mg/Syringe 0.48 ml @ 1.5 mls/min Q8H IV 06/23/17 18:00 07/23/17 17:59 06/23/17 18:33 1.5 MLS/MIN I & O: 24-Hour Column 06/24/17 08:00 Intake Total 395 ml Output Total 1600 ml Balance -1205 ml Vital Signs: Date Time Temp Pulse Resp B/P (MAP) Pulse Ox O2 Delivery O2 Flow Rate FiO2 2/9/18 18:26 67 98 2.0 06/23/17 16:00 Room Air CPAP 06/23/17 15:49 36.4 63 18 143/73 (96) 94 CPAP 06/23/17 12:00 36.3 66 18 136/66 (89) 91 Room Air 06/23/17 12:00 Room Air CPAP 06/23/17 11:59 68 18 95 Room Air 06/23/17 10:52 151/74 (99) 06/23/17 10:38 178/71 (106) 06/23/17 08:09 36.5 107 19 171/75 (107) 94 CPAP 06/23/17 08:00 Room Air CPAP 06/23/17 04:00 Room Air CPAP 06/23/17 03:40 36.6 53 22 158/71 (100) 94 BiPAP 53 06/23/17 00:00 Room Air CPAP 06/22/17 23:40 36.5 63 20 148/68 (94) 95 Room Air 06/22/17 22:11 76 95 2.0 06/22/17 22:00 68 20 94 Nasal Cannula 2.0 06/22/17 20:00 93 Room Air
--- NOTE | 2017-06-23 19:38 | Progress Note ---
Internal Med Progress Note Date of Service: Jun 23, 2017. Provider Documentation: SUBJECTIVE: Patient reports worsening subjective shortness of breath; reported Vtach on telemetry OBJECTIVE: General Appearance: no distress Head: normocephalic, atraumatic Eyes: normal inspection, sclerae normal ENT: hearing grossly normal, pharynx normal Neck: supple, no adenopathy Respiratory/Chest: CTABL, no wheezing Cardiovascular: regular rate, rhythm, no edema Abdomen/GI: normal bowel sounds, non tender, soft Back: normal inspection Extremities/Musculoskelatal: normal inspection, no pedal edema Neurologic/Psych: alert, normal mood/affect, oriented x 3 Skin: normal color ASSESSMENT & PLAN: 82 yo F with COPD who presents with worsening SOB and no improvement with outpatient treatment. Acute COPD exacerbation Started on Levofloxacin on admission - hold off antibiotics as CXR is clear and patient's QTc is prolonged at 501 Patient restarted on IV solumedrol by pulmonary service and given morphine for shortness of breath Continue home inhalers, run of Vtach may be from nebulizer treatments Evaluated by pulmonary consult service - patient will need outpatient follow up with Dr. Astorga HARMEET: Continue CPAP CKD III-renally dose medications Elevated troponins but o chest pain with normal EKG. Troponin trended from 0.05 to 0.09 to 0.086. Acute Coronary Syndrome is not likely in this clinical situation of COPD. Possibly from demand ischemia from illness and CKD III Continue carvedilol, lisinopril, statin Awaiting cardiology recommendations Chronic diastolic CHF-compensated, cont home Lasix. Transthoracic Echocardiogram completed 06/21/17 The left ventricular wall motion is normal. Ejection Fraction = 60-65%. Aortic valve regurgitation is present, but not well quantitated on this study, however it appears to be moderate in severity. Compared to the prior study dated 02/03/17, there has been no significant interval change History of aortic repair Hypertension - continue carvedilol, lisinopril. start hydralazine prn for systolic blood pressure above 160 Depression- mood is stable, continue sertraline DVT Ppx - Lovenox DNR as per conversation with admitting hospitalist physician, the patient, and the patient's daughter on admission Patient's daughter's phone number is [phone] Follow up with primary care doctor: 06/27/17 12:45 PM Amina Pathak Alcantar, DO Internal Medicine [facility] Patient will need follow up with [facility] Dr. Astorga after hospital discharge Patient will need to to follow up with [facility] cardiology. Appointments for [facility] affiliated clinics can be made by calling Vital Signs: Date Time Temp Pulse Resp B/P (MAP) Pulse Ox O2 Delivery O2 Flow Rate FiO2 06/23/17 18:26 67 98 2.0 06/23/17 16:00 Room Air CPAP 06/23/17 15:49 36.4 63 18 143/73 (96) 94 CPAP 06/23/17 12:00 36.3 66 18 136/66 (89) 91 Room Air 06/23/17 12:00 Room Air CPAP 06/23/17 11:59 68 18 95 Room Air 06/23/17 10:52 151/74 (99) 06/23/17 10:38 178/71 (106) 06/23/17 08:09 36.5 107 19 171/75 (107) 94 CPAP 06/23/17 08:00 Room Air CPAP 06/23/17 04:00 Room Air CPAP 06/23/17 03:40 36.6 53 22 158/71 (100) 94 BiPAP 53 06/23/17 00:00 Room Air CPAP 06/22/17 23:40 36.5 63 20 148/68 (94) 95 Room Air 06/22/17 22:11 76 95 2.0 06/22/17 22:00 68 20 94 Nasal Cannula 2.0 06/22/17 20:00 93 Room Air
[2017-06-23] MEDS: METOPROLOL TARTRATE 25 MG TAB PO SCH (20:23)
[2017-06-23] MEDS: ACETAMINOPHEN 500 MG TAB PO SCH (20:23)
[2017-06-24] VITALS (9 sets, daily range): BP systolic 117–150; BP diastolic 56–75; PULSE 53–85; TEMP 36.4–36.7; O2SAT 91–96
[2017-06-24] MEDS: METHYLPREDNISOLONE IV 30 MG in SYRINGE 0 ML IV SCH ×3 (01:36→18:05)
[2017-06-24 07:00] LABS: BASO % 0.1 %; BASO ABS # 0.01 K/uL (0-0.2); HEMATOCRIT 42.2 % (37-47); HEMOGLOBIN 13.9 g/dL (12.0-16.0); IG# 0.03 K/uL (0.00-0.02); LYMPH % 19.3 %; MEAN CELL VOLUME 94.4 fL (80-100); MEAN CORPUSCULAR HEMOGLOBIN 31.1 pg (25-34); MEAN CORPUSCULAR HGB CONC 32.9 g/dl (32-36); MEAN PLATELET VOLUME 10.9 fL (7.4-10.4); MONO % 6.5 %; MONO ABS # 0.54 K/uL (0.11-0.59); NEUT % 73.7 %; NEUT ABS # 6.12 K/uL (1.4-6.5); PLATELET COUNT 191 K/uL (130-400); RED CELL DISTRIBUTION WIDTH CV 14.6 % (11.5-14.5); RED CELL DISTRIBUTION WIDTH SD 50.1 fL (36.4-46.3)
[2017-06-24 07:38] LABS: CALCIUM 9.6 mg/dl (8.5-10.1); CREATININE 1.08 mg/dl (0.60-1.20); POTASSIUM 3.8 mmol/L (3.5-5.1)
[2017-06-24] MEDS: DULERA~ORDER AWAITING ACTION SCH ×4 (07:38→20:59)
[2017-06-24] MEDS: METOPROLOL TARTRATE 25 MG TAB PO SCH ×2 (07:39→20:59)
[2017-06-24] MEDS: FUROSEMIDE 40 MG TAB PO SCH (07:39)
[2017-06-24] MEDS: ENOXAPARIN 40 MG/0.4 ML SYR SQ SCH (07:40)
[2017-06-24] MEDS: MULTIVITAMIN TAB PO SCH (07:41)
[2017-06-24] MEDS: ASPIRIN 81 MG ECTAB PO SCH (07:41)
[2017-06-24] MEDS: CHOLECALCIFEROL 1000 INTER.UNIT TAB PO SCH (07:41)
[2017-06-24] MEDS: ATORVASTATIN 20 MG TAB PO SCH ×2 (07:41→20:59)
[2017-06-24] MEDS: SERTRALINE HCL 100 MG TAB PO SCH (07:42)
[2017-06-24] MEDS: LISINOPRIL 5 MG TAB PO SCH (07:42)
[2017-06-24] MEDS: PANTOprazole SOD 40 MG TAB PO SCH (07:42)
--- NOTE | 2017-06-24 14:38 | Progress Note ---
Internal Med Progress Note Date of Service: Jun 24, 2017. Provider Documentation: SUBJECTIVE: Patient reports breathing feels better today OBJECTIVE: General Appearance: no distress Head: normocephalic, atraumatic Eyes: normal inspection, sclerae normal ENT: hearing grossly normal, pharynx normal Neck: supple, no adenopathy Respiratory/Chest: CTABL, no wheezing Cardiovascular: regular rate, rhythm, no edema Abdomen/GI: normal bowel sounds, non tender, soft Back: normal inspection Extremities/Musculoskelatal: normal inspection, no pedal edema Neurologic/Psych: alert, normal mood/affect, oriented x 3 Skin: normal color ASSESSMENT & PLAN: 82 yo F with COPD who presents with worsening SOB and no improvement with outpatient treatment. Acute COPD exacerbation Levofloxacin on admission was stopped after initial dose as QTc prolonged at 501 On 06/23/17, pulmonary service restarted on IV solumedrol by pulmonary service and given morphine for shortness of breath, Changed CPAP to BIPAP to help with hypoventilation secondary to diaphragmatic paralysis, Changed Coreg to metoprolol to reduce risk for wheezing HARMEET: now with BIPAP for sleep Chronic diastolic CHF-compensated, cont home Lasix. Transthoracic Echocardiogram completed 06/21/17 The left ventricular wall motion is normal. Ejection Fraction = 60-65%. Aortic valve regurgitation is present, but not well quantitated on this study, however it appears to be moderate in severity. Compared to the prior study dated 02/03/17, there has been no significant interval change Elevated troponins but no chest pain with normal EKG. Troponin trended from 0.05 to 0.09 to 0.086. As per cardiology evaluation 06/24/17: 1. Mild troponin I elevation, due to myocardial strain in the setting of COPD exacerbation, hypoxia 2. 5 beat run of nonsustained ventricular tachycardia on 06/21/17, 17 beat run of supraventricular tachycardia on 06/23/17 3. History of type A thoracic aortic dissection 4. History of hypertension with hypertensive heart disease 5. History of aortic valve regurgitation, stable on transthoracic echocardiogram compared to January 2017 6. Prolonged QT interval this admission Repeat EKG on 06/24/17 with resolution of prolonged QTc to 457 CKD III-renally dose medications History of aortic repair Hypertension - continue carvedilol, lisinopril. start hydralazine prn for systolic blood pressure above 160 Depression/Anxiety continue sertraline DVT Ppx - Lovenox DNR as per conversation with admitting hospitalist physician, the patient, and the patient's daughter on admission Patient's daughter's phone number is [phone] Disposition: patient remains in hospital for further treatment of shortness of breath. Is doing better today, but patient had been feeling better 1 day before and then yesterday was appearing worse, would like to see consecutive days of respiratory wellness before hospital discharge Follow up with primary care doctor: 06/27/17 12:45 PM Amina Alcantar, DO Internal Medicine [facility] Patient will need follow up with [facility] Dr. Astorga after hospital discharge Patient will need to to follow up with [facility] cardiology. Appointments for [facility] affiliated clinics can be made by calling Vital Signs: Date Time Temp Pulse Resp B/P (MAP) Pulse Ox O2 Delivery O2 Flow Rate FiO2 06/24/17 12:00 Room Air CPAP 06/24/17 11:38 36.4 53 18 128/56 (80) 91 Room Air 06/24/17 08:00 Room Air CPAP 06/24/17 07:51 36.6 61 18 150/70 (96) 91 Room Air 06/24/17 04:00 36.7 55 20 121/71 (88) 91 BiPAP 2.0 06/24/17 04:00 BiPAP 06/23/17 23:59 93 BiPAP 06/23/17 22:59 36.7 54 20 116/67 (83) 93 BiPAP 2.0 06/23/17 22:13 72 97 2.0 06/23/17 20:00 94 BiPAP 06/23/17 19:10 36.6 72 21 136/76 (96) 94 BiPAP 2.0 06/23/17 18:26 67 98 2.0 06/23/17 16:00 Room Air CPAP 06/23/17 15:49 36.4 63 18 143/73 (96) 94 CPAP Lab Results: Results Past 24 Hours Test 06/24/17 06:09 Range/Units White Blood Count 8.30 4.8-10.8 K/uL Red Blood Count 4.47 4.2-5.4 M/uL Hemoglobin 13.9 12.0-16.0 g/dL Hematocrit 42.2 37-47 % Mean Corpuscular Volume 94.4 80-100 fL Mean Corpuscular Hemoglobin 31.1 25-34 pg Mean Corpuscular Hemoglobin Concent 32.9 32-36 g/dl Platelet Count 191 130-400 K/uL Mean Platelet Volume 10.9 7.4-10.4 fL Neutrophils (%) (Auto) 73.7 % Lymphocytes (%) (Auto) 19.3 % Monocytes (%) (Auto) 6.5 % Eosinophils (%) (Auto) 0.0 % Basophils (%) (Auto) 0.1 % Neutrophils # (Auto) 6.12 1.4-6.5 K/uL Lymphocytes # (Auto) 1.60 1.2-3.4 K/uL Monocytes # (Auto) 0.54 0.11-0.59 K/uL Eosinophils # (Auto) 0.00 0-0.5 K/uL Basophils # (Auto) 0.01 0-0.2 K/uL RDW Standard Deviation 50.1 36.4-46.3 fL RDW Coefficient of Variation 14.6 11.5-14.5 % Immature Granulocyte % (Auto) 0.4 % Immature Granulocyte # (Auto) 0.03 0.00-0.02 K/uL Sodium Level 139 136-145 mmol/L Potassium Level 3.8 3.5-5.1 mmol/L Chloride Level 102 98-107 mmol/L Carbon Dioxide Level 30 21-32 mmol/L Anion Gap 7.0 3-11 mmol/L Blood Urea Nitrogen 36 7-18 mg/dl Creatinine 1.08 0.60-1.20 mg/dl Est Creatinine Clear Calc Drug Dose 42.8 ml/min Estimated GFR () 55.4 Estimated GFR (Non- 47.8 BUN/Creatinine Ratio 33.7 10-20 Random Glucose 103 70-99 mg/dl Calcium Level 9.6 8.5-10.1 mg/dl Magnesium Level 2.6 1.8-2.4 mg/dl Procalcitonin < 0.05 0-0.5 ng/ml
[2017-06-24] MEDS ORDERED: LEVALBUTEROL 0.63MG/3 ML NEB INH STA (15:06)
[2017-06-24] MEDS: GUAIFENESIN/CODEINE 200MG/20MG 10ML UDC PO PRN (15:50)
--- NOTE | 2017-06-24 16:20 | PULMONARY PROGRESS NOTE ---
DATE: 06/24/2017 SUBJECTIVE: The patient was doing much better earlier today, but this evening feels chest tightness but is not coughing. She tolerated the BiPAP last evening and seemed to be responding. Unfortunately, she has not received a nebulizer treatment recently and feels she needs one. She was started on levofloxacin on admission, but then that was held as her QT interval was prolonged. IV Solu-Medrol was given and apparently she has had a run of V-tach from her nebulizer treatments. She receives outpatient care with Dr. Astorga. Her BiPAP was instituted last night from CPAP as there was felt to be a degree of hypoventilation secondary to an elevated right hemidiaphragm. 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 Her Coreg was switched from metoprolol to be more selective. Also, she experienced chronic diastolic CHF and she has moderate aortic regurgitation. Chest x-ray shows no acute infiltrate, but with a chronically elevated right hemidiaphragm. White count is normal, H&H stable. ABGs have not been drawn. PHYSICAL EXAMINATION: GENERAL: Well-developed, well-nourished white female complaining of slight air hunger currently. VITAL SIGNS: Temperature 36.4, pulse 53 and regular, respiratory rate 18, blood pressure 128/56, O2 sat 91% on room air. SKIN: Warm and dry. HEENT: Atraumatic, normocephalic, PERRLA, EOMI. Conjunctivae pale. Sclerae nonicteric. Fundi poorly visualized. NECK: Veins are not distended at 45 degrees. No adenopathy in the supra or infraclavicular areas. LUNGS: Distant breath sounds. No discernible wheezing, but prolongation of the expiratory phase. Decreased breath sounds, right base. IMAGING DATA: Last CT scan in 2011 showed infiltrate and atelectasis in posterior aspect right lower lobe with minimal atelectasis, left base. An angiography CT scan scheduled on 06/02/2016 suggestive of possible penetrating ulcer involving the mid descending thoracic aorta, ? the angiogram; however, showed no aortic dissection and stable postoperative findings consistent with repair of the thoracic aorta. No acute process in the chest. OVERALL ASSESSMENT: An 82-year-old white female with chronic obstructive pulmonary disease exacerbation. PLAN: Continue IV methylprednisolone and BiPAP therapy and would give the patient [id number] low dose Xopenex to see if it is tolerated without eliciting ventricular arrhythmia.
[2017-06-24] MEDS: LEVALBUTEROL 0.63MG/3 ML NEB INH SCH (19:48)
[2017-06-24] MEDS: ACETAMINOPHEN 500 MG TAB PO SCH (20:59)
[2017-06-25] VITALS (11 sets, daily range): BP systolic 130–149; BP diastolic 59–72; PULSE 51–71; TEMP 36.4–36.8; O2SAT 90–96
[2017-06-25] MEDS: LEVALBUTEROL 0.63MG/3 ML NEB INH SCH ×4 (02:05→21:00)
[2017-06-25] MEDS: METHYLPREDNISOLONE IV 30 MG in SYRINGE 0 ML IV SCH ×3 (02:18→17:38)
[2017-06-25] MEDS: DULERA~ORDER AWAITING ACTION SCH ×3 (07:54→22:39)
[2017-06-25] MEDS: GUAIFENESIN/CODEINE 200MG/20MG 10ML UDC PO PRN ×2 (07:55→18:17)
[2017-06-25] MEDS: CHOLECALCIFEROL 1000 INTER.UNIT TAB PO SCH (07:56)
[2017-06-25] MEDS: ASPIRIN 81 MG ECTAB PO SCH (07:56)
[2017-06-25] MEDS: METOPROLOL TARTRATE 25 MG TAB PO SCH ×2 (07:56→21:08)
[2017-06-25] MEDS: MULTIVITAMIN TAB PO SCH (07:57)
[2017-06-25] MEDS: ENOXAPARIN 40 MG/0.4 ML SYR SQ SCH (07:57)
[2017-06-25] MEDS: SERTRALINE HCL 100 MG TAB PO SCH (07:57)
[2017-06-25] MEDS: LISINOPRIL 5 MG TAB PO SCH (07:58)
[2017-06-25] MEDS: FUROSEMIDE 40 MG TAB PO SCH (07:58)
[2017-06-25] MEDS: PANTOprazole SOD 40 MG TAB PO SCH (07:59)
[2017-06-25] MEDS: FLUTICASONE PROPIONATE NA SPR 16 GM BTL SCH (07:59)
[2017-06-25] MEDS ORDERED: LEVALBUTEROL 1.25MG/3ML NEB INH ONE (10:15)
--- NOTE | 2017-06-25 10:43 | DIAGNOSTIC IMAGING REPORT ---
CHEST 2 VIEWS ROUTINE CLINICAL HISTORY: worsening cough dyspnea COMPARISON STUDY: 06/23/2017 FINDINGS: Chronic blunting right lateral calcific angle. Lungs are considered clear. Prior median sternotomy. No focal infiltrate. Chronic scarring left midlung. IMPRESSION: Chronic and postoperative change. No acute process. The above report was generated using voice recognition software. It may contain grammatical, syntax or spelling errors. Electronically signed by: Saad Gomez M.D. 06/25/2017 10:41 AM Dictated Date/Time: 06/25/2017 10:40 AM
[2017-06-25] MEDS: LORAZEPAM 0.5 MG TAB PO PRN ×2 (13:34→21:08)
--- NOTE | 2017-06-25 14:11 | PULMONARY PROGRESS NOTE ---
DATE: 06/25/2017 SUBJECTIVE: The patient feels "I'm no better than when I came in." Having a great deal of difficulty expectorating any phlegm. In my presence, she is able to bring up a small amount of clear sputum after severe paroxysms of coughing and attempts to mobilize those secretions. Neb treatments with Xopenex did not appear to be helping in her opinion. PHYSICAL EXAMINATION: CURRENT VITAL SIGNS: Temperature 36.8, pulse 57 and regular, respiratory rate 16, blood pressure 130/66, 94% on room air. SKIN: Without lesion. HEENT: Atraumatic, normocephalic. PERRLA. LUNGS: Distant P&A with coarse rhonchi of the large airways. CARDIAC: Sinus tachycardia. ABDOMEN: Soft, scaphoid. EXTREMITIES: No significant pedal edema, clubbing or cyanosis. NEUROLOGIC: Intact. 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 I have told her that we will consider bronchoscopic intervention tomorrow with bronchoalveolar lavage.
--- NOTE | 2017-06-25 17:43 | Progress Note ---
Internal Med Progress Note Date of Service: Jun 25, 2017. Provider Documentation: SUBJECTIVE: This morning patient reports feeling worse. Was having coughing and difficulty bringing up the phlegm. Patient subsequently seen by pulmonary service and discussed withcorina patel the possibility of bronchoscopy. Patient again seen in the evening eating her dinner. Reports feeling more comfortable since earlier today OBJECTIVE: General Appearance: no distress Head: normocephalic, atraumatic Eyes: normal inspection, sclerae normal ENT: hearing grossly normal, pharynx normal Neck: supple, no adenopathy Respiratory/Chest: CTABL, no wheezing Cardiovascular: regular rate, rhythm, no edema Abdomen/GI: normal bowel sounds, non tender, soft Back: normal inspection Extremities/Musculoskelatal: normal inspection, no pedal edema Neurologic/Psych: alert, normal mood/affect, oriented x 3 Skin: normal color ASSESSMENT & PLAN: 82 yo F with COPD who presents with worsening SOB and no improvement with outpatient treatment. Acute COPD exacerbation Levofloxacin on admission was stopped after initial dose as QTc prolonged at 501 On 06/23/17, pulmonary service restarted on IV solumedrol by pulmonary service and given morphine for shortness of breath, Changed CPAP to BIPAP to help with hypoventilation secondary to diaphragmatic paralysis, Changed Coreg to metoprolol to reduce risk for wheezing On 06/25/17 pulmonary consult evaluation, there are now plans for bronchoscopic intervention with bronchoalveolar lavage due to difficulty in expectorating Chest PT also ordered HARMEET: now with BIPAP for sleep Chronic diastolic CHF-compensated, cont home Lasix. Transthoracic Echocardiogram completed 06/21/17 The left ventricular wall motion is normal. Ejection Fraction = 60-65%. Aortic valve regurgitation is present, but not well quantitated on this study, however it appears to be moderate in severity. Compared to the prior study dated 02/03/17, there has been no significant interval change Elevated troponins but no chest pain with normal EKG. Troponin trended from 0.05 to 0.09 to 0.086. As per cardiology evaluation 06/24/17: 1. Mild troponin I elevation, due to myocardial strain in the setting of COPD exacerbation, hypoxia 2. 5 beat run of nonsustained ventricular tachycardia on 06/21/17, 17 beat run of supraventricular tachycardia on 06/23/17 3. History of type A thoracic aortic dissection 4. History of hypertension with hypertensive heart disease 5. History of aortic valve regurgitation, stable on transthoracic echocardiogram compared to January 2017 6. Prolonged QT interval this admission Repeat EKG on 06/24/17 with resolution of prolonged QTc to 457 CKD III-renally dose medications History of aortic repair Hypertension - continue metoprolol, lisinopril. hydralazine prn for systolic blood pressure above 160 Depression/Anxiety continue sertraline DVT Ppx - Lovenox DNR as per conversation with admitting hospitalist physician, the patient, and the patient's daughter on admission Patient's daughter's phone number is [phone] Disposition: pulmonary consult planning for bronchoscopic intervention with bronchoalveolar lavage Follow up with primary care doctor: 06/27/17 12:45 PM Amina Alcantar, DO Internal Medicine [facility] Patient will need follow up with [facility] Dr. Astorga after hospital discharge Patient will need to to follow up with [facility] cardiology. Appointments for [facility] affiliated clinics can be made by calling [phone] Vital Signs: Date Time Temp Pulse Resp B/P (MAP) Pulse Ox O2 Delivery O2 Flow Rate FiO2 06/25/17 16:00 Room Air CPAP 06/25/17 15:15 36.6 63 22 135/59 (84) 91 Room Air 06/25/17 14:28 56 16 94 Room Air 06/25/17 12:00 Room Air CPAP 06/25/17 11:31 36.4 52 18 131/68 (89) 94 Room Air 06/25/17 11:16 52 16 94 Room Air 06/25/17 08:00 Room Air CPAP 06/25/17 07:35 36.8 57 16 130/66 (87) 94 BiPAP 06/25/17 07:15 57 16 95 BiPAP/CPAP 3.0 06/25/17 04:00 Room Air 06/25/17 03:48 36.5 51 18 149/72 (97) 94 BiPAP 2.0 06/25/17 02:05 54 96 3.0 06/25/17 02:05 54 18 96 BiPAP/CPAP 3.0 06/25/17 00:02 Room Air 06/24/17 23:30 36.7 58 20 142/69 (93) 96 BiPAP 2.0 06/24/17 22:02 73 93 3.0 06/24/17 20:00 Room Air 06/24/17 19:49 85 18 92 Room Air 06/24/17 19:30 36.6 71 23 121/75 (90) 94 BiPAP 3.0
[2017-06-25] MEDS: ATORVASTATIN 20 MG TAB PO SCH (21:08)
[2017-06-25] MEDS: ACETAMINOPHEN 500 MG TAB PO SCH (21:09)
[2017-06-26] VITALS (15 sets, daily range): BP systolic 120–158; BP diastolic 56–73; PULSE 48–73; TEMP 36.5–36.8; O2SAT 90–96
[2017-06-26] MEDS: METHYLPREDNISOLONE IV 30 MG in SYRINGE 0 ML IV SCH ×3 (02:14→17:41)
[2017-06-26] MEDS: LEVALBUTEROL 0.63MG/3 ML NEB INH SCH ×4 (02:21→19:25)
[2017-06-26] MEDS: DULERA~ORDER AWAITING ACTION SCH ×2 (07:08→17:41)
[2017-06-26 07:16] LABS: BASO % 0.1 %; BASO ABS # 0.01 K/uL (0-0.2); HEMATOCRIT 39.5 % (37-47); HEMOGLOBIN 13.3 g/dL (12.0-16.0); IG# 0.08 K/uL (0.00-0.02); LYMPH % 17.7 %; LYMPH ABS # 1.57 K/uL (1.2-3.4); MEAN CELL VOLUME 93.4 fL (80-100); MEAN CORPUSCULAR HEMOGLOBIN 31.4 pg (25-34); MEAN CORPUSCULAR HGB CONC 33.7 g/dl (32-36); MEAN PLATELET VOLUME 10.2 fL (7.4-10.4); MONO % 4.6 %; MONO ABS # 0.41 K/uL (0.11-0.59); NEUT % 76.7 %; PLATELET COUNT 203 K/uL (130-400); RED CELL DISTRIBUTION WIDTH CV 14.8 % (11.5-14.5); RED CELL DISTRIBUTION WIDTH SD 49.9 fL (36.4-46.3); WHITE BLOOD COUNT 8.87 K/uL (4.8-10.8)
--- NOTE | 2017-06-26 07:44 | History & Physical Bridge Note ---
H&P Re-Evaluation Bridge Note: I have examined the patient, reviewed the History & Physical and in the interval since the performance of the History & Physical I have noted the following changes of clinical significance: No changes noted
--- NOTE | 2017-06-26 07:45 | Pre Sedation Assessment ---
Pre Sedation Assessment General Date of Sedation: Jun 26, 2017. Vital Signs Past 12 Hours Date Time Temp Pulse Resp B/P (MAP) Pulse Ox O2 Delivery O2 Flow Rate FiO2 06/26/17 07:19 58 16 90 Room Air 06/26/17 04:02 Room Air 06/26/17 03:43 36.8 54 20 120/63 (82) 94 BiPAP 2.0 06/26/17 02:21 59 16 94 BiPAP/CPAP 3.0 06/26/17 00:00 Room Air 06/25/17 23:26 71 16 90 Room Air 06/25/17 23:22 36.8 65 22 137/71 (93) 91 BiPAP 2.0 06/25/17 20:04 Room Air Pre-Sedation Airway Assessment Smoking Status: Unknown if Ever Smoked Hx of Sleep Apnea: Yes Oral Cavity: WNL Mallampati Classification: Class III ASA Classification: Class III NPO Status Date of Last Intake of Fluids: Jun 25, 2017 Time of Last Intake of Fluids: 2359 Date of Last Intake of Solids: Jun 25, 2017 Time of Last Intake of Solids: 1999 Procedure Planning Contraindications for Sedation: None Current Medications Reviewed: Yes Notes The planned sedation has been discussed with the patient. Informed Consent was obtained. I have identified the patient, determined the appropriateness of sedation and have assessed the patient immediately prior to the procedure. All medicine(s) and interventions are by my order.
[2017-06-26 07:57] LABS: ALBUMIN 3.7 gm/dl (3.4-5.0); CALCIUM 9.2 mg/dl (8.5-10.1); CREATININE 1.25 mg/dl (0.60-1.20)
[2017-06-26] MEDS ORDERED: FENTANYL CITRATE INJ 50 MCG/1 ML 2 ML VIAL IV ONE (08:19)
[2017-06-26] MEDS ORDERED: MIDAZOLAM HCL 5 MG/ML 1 ML VIAL IV ONE (08:19)
[2017-06-26] MEDS ORDERED: LIDOCAINE HCL 2% LOCAL 50ML VIAL INSTIL ONE (08:36)
[2017-06-26] MEDS ORDERED: OXYMETAZOLINE HCL 0.05% NA SPR 15 ML BTL ONE (08:36)
[2017-06-26] MEDS ORDERED: LIDOCAINE 4% INH SOLN 4 ML BTL TOP ONE (08:36)
[2017-06-26] MEDS ORDERED: LIDOCAINE VISCOUS 2% 100ML TOP ONE (08:36)
[2017-06-26] MEDS ORDERED: ACETYLCYSTEINE 200MG/ML 30ML VIAL NG ONE (08:36)
[2017-06-26] MEDS ORDERED: LEVALBUTEROL 1.25MG/3ML NEB INH ONE (08:36)
[2017-06-26] MEDS ORDERED: NURSING VERBAL MED ORDER ONE (08:45)
--- NOTE | 2017-06-26 08:53 | Post Sedation Assessment ---
Post Sedation Assessment General Date of Sedation Jun 26, 2017. Vital Signs: Vital Signs Past 12 Hours Date Time Temp Pulse Resp B/P (MAP) Pulse Ox O2 Delivery O2 Flow Rate FiO2 06/26/17 08:30 61 22 183/82 94 Mask 06/26/17 08:25 70 16 170/63 94 Mask 06/26/17 08:20 59 18 160/63 94 Mask 06/26/17 08:15 59 18 140/68 94 Mask 06/26/17 08:11 36.8 55 20 137/71 (93) 90 Room Air 06/26/17 08:05 57 18 155/68 92 Room Air 06/26/17 08:01 Room Air 06/26/17 07:19 58 16 90 Room Air 06/26/17 04:02 Room Air 06/26/17 03:43 36.8 54 20 120/63 (82) 94 BiPAP 2.0 06/26/17 02:21 59 16 94 BiPAP/CPAP 3.0 06/26/17 00:00 Room Air 06/25/17 23:26 71 16 90 Room Air 06/25/17 23:22 36.8 65 22 137/71 (93) 91 BiPAP 2.0 Post Procedure Recovery Score Activity: (2) Moves 4 extremities * Respiration: (2) Deep breath/cough Circulation: (2) +/-20% PreAnes Value Consciousness: (1) Arouseable (by name) Oxygen Saturation: (1) O2 needed for >90% Post Anesthesia Score: 8 Post Sedation Plan On clinical assessment, the patient appears to have tolerated the sedation without complications. Patient is recovering as anticipated. Patient will continue to be monitored by nursing and may be discharged when sedation discharge criteria are met per below protocol. Upon Completions of procedure and additional 15 minutes continue every 5 minute vital signs and the P.A.R. score; then discharge to a Phase I or Fast Track to Phase II per the following guidelines: * Discharge Patient to appropriate Phase II area if PAR is 8 or greater or return to pre- procedure baseline. The post - procedure orders will be as directed. * If PAR score is less than 8 or not return to pre-procedure baseline then patient will follow Phase I monitoring till PAR is reached for Phase II. The Phase I may be done in procedure room or may call to secure a Phase I area. * If naloxone or flumazenil are used for reversal, hold in Phase I for an additional 60 -120 minutes before discharge to Phase II. Please call the Sedation Physician to re-evaluate and complete post-note for discharge to Phase II area. Do NOT discharge from procedure sedation or Phase 1 until post- sedation evaluation note is complete by procedure /sedation MD Sedation Discharge Instructions to be given to the patient at discharge to home.
[2017-06-26] MEDS ORDERED: SODIUM CHLORIDE 0.9% 1000ML 1,000 ML IV SCH (09:00)
--- NOTE | 2017-06-26 09:12 | OPERATIVE REPORT ---
DATE OF OPERATION: 06/26/2017 PROCEDURE: Fiberoptic bronchoscopy with bronchoalveolar lavage. INDICATIONS: Persistent bronchospasm, rule out mucoid impaction. ANESTHESIA PREOPERATIVELY: None. ANESTHESIA DURING PROCEDURE: 3 mg IV Versed, 50 mcg IV fentanyl, 20 mL 2% Xylocaine spray above and below the cords. DESCRIPTION OF PROCEDURE: Fiberoptic bronchoscope was inserted into the right naris with minimal difficulty and passed to the level of the true vocal cords. The cords appeared to approximate normally with phonation without evidence of lesions or paralysis. The scope was then introduced in the trachea and right and left tracheobronchial tree. The right mainstem bronchus showed evidence for endoscopic dynamic airway collapse or EDAC/tracheomalacia at the take off the right mainstem bronchus. This persisted through to the bronchus intermedius. The scope was introduced and no obvious endobronchial lesion was seen. The right upper lobe, the apical posterior, anterior segments, bronchus intermedius, right middle lobe, and medial lateral segments were free of endobronchial lesions. The right lower lobe was virtually occluded with thick mucoviscous secretion. This area was lavaged with normosol and the aspirate sent for appropriate studies. 5 mL of 20% Mucomyst was instilled and then mucus was able to be lavaged until clear with all basilar segments being patent. Left tracheobronchial tree was explored and the left mainstem bronchus was virtually occluded with thick mucoviscous secretion with EDAC also prominently displayed throughout the left mainstem bronchus. Left upper lobe, the apical posterior, anterior segments, lingular subdivision, left lower lobe were free of endobronchial lesions down to the subsegmental bronchi and 5 mL of 20% Mucomyst was instilled and then saline was instilled copiously and the aspirate sent for appropriate studies with patency of the lobar and segmental bronchi tree. Procedure was terminated. The patient did desaturate ever had to be supplemented with 6 liters O2 by nasal cannula for saturation 90% but showed an exhibited no signs of respiratory distress. The patient was administered a nebulizer treatment with Xopenex 1.25 mg and transferred back to the medical floor, hemodynamically stable with no further signs of respiratory compromise. Will await microbiological and cytologic examination of the bronchial washings. I attest to the content of the Intraoperative Record and any orders documented therein. Any exception s are noted below.
[2017-06-26 10:04] LABS: POTASSIUM 3.5 mmol/L (3.5-5.1)
[2017-06-26] MEDS: ENOXAPARIN 40 MG/0.4 ML SYR SQ SCH (10:19)
[2017-06-26] MEDS: FLUTICASONE PROPIONATE NA SPR 16 GM BTL SCH (10:20)
[2017-06-26] MEDS: CHOLECALCIFEROL 1000 INTER.UNIT TAB PO SCH (11:57)
[2017-06-26] MEDS: ASPIRIN 81 MG ECTAB PO SCH (11:57)
[2017-06-26] MEDS: PANTOprazole SOD 40 MG TAB PO SCH (11:58)
[2017-06-26] MEDS: SERTRALINE HCL 100 MG TAB PO SCH (11:58)
[2017-06-26] MEDS: METOPROLOL TARTRATE 25 MG TAB PO SCH ×2 (11:58→20:15)
[2017-06-26] MEDS: FUROSEMIDE 40 MG TAB PO SCH (11:59)
[2017-06-26] MEDS: MULTIVITAMIN TAB PO SCH (12:00)
[2017-06-26] MEDS: LISINOPRIL 5 MG TAB PO SCH (12:01)
--- NOTE | 2017-06-26 19:58 | Progress Note ---
Internal Med Progress Note Date of Service: Jun 26, 2017. Provider Documentation: SUBJECTIVE: s/p bronchoscopy. Patient still having some cough on exam. OBJECTIVE: General Appearance: no distress Head: normocephalic, atraumatic Eyes: normal inspection, sclerae normal ENT: hearing grossly normal, pharynx normal Neck: supple, no adenopathy Respiratory/Chest: CTABL, some congestion Cardiovascular: regular rate, rhythm, no edema Abdomen/GI: normal bowel sounds, non tender, soft Back: normal inspection Extremities/Musculoskelatal: normal inspection, no pedal edema Neurologic/Psych: alert, normal mood/affect, oriented x 3 Skin: normal color ASSESSMENT & PLAN: 82 yo F with COPD who presents with worsening SOB and no improvement with outpatient treatment. Acute COPD exacerbation Levofloxacin on admission was stopped after initial dose as QTc prolonged at 501 On 06/23/17, pulmonary service restarted on IV solumedrol by pulmonary service and given morphine for shortness of breath, Changed CPAP to BIPAP to help with hypoventilation secondary to diaphragmatic paralysis, Changed Coreg to metoprolol to reduce risk for wheezing On 06/26/17 pulmonary service performed bronchoscopy, awaiting specimen results from bronchoscopy Chest PT HARMEET: now with BIPAP for sleep Chronic diastolic CHF-compensated, cont home Lasix. Transthoracic Echocardiogram completed 06/21/17 The left ventricular wall motion is normal. Ejection Fraction = 60-65%. Aortic valve regurgitation is present, but not well quantitated on this study, however it appears to be moderate in severity. Compared to the prior study dated 02/03/17, there has been no significant interval change Elevated troponins but no chest pain with normal EKG. Troponin trended from 0.05 to 0.09 to 0.086. As per cardiology evaluation 06/24/17: 1. Mild troponin I elevation, due to myocardial strain in the setting of COPD exacerbation, hypoxia 2. 5 beat run of nonsustained ventricular tachycardia on 06/21/17, 17 beat run of supraventricular tachycardia on 06/23/17 3. History of type A thoracic aortic dissection 4. History of hypertension with hypertensive heart disease 5. History of aortic valve regurgitation, stable on transthoracic echocardiogram compared to January 2017 6. Prolonged QT interval this admission Repeat EKG on 06/24/17 with resolution of prolonged QTc to 457 CKD III-renally dose medications History of aortic repair Hypertension - continue metoprolol, lisinopril. hydralazine prn for systolic blood pressure above 160 Depression/Anxiety continue sertraline DVT Ppx - Lovenox DNR as per conversation with admitting hospitalist physician, the patient, and the patient's daughter on admission Patient's daughter's phone number is [phone] Disposition: awaiting bronchoscopy lab results, awaiting for further clinical improvement for breathing Follow up with primary care doctor: 06/27/17 12:45 PM Amina Alcantar, Internal Medicine [facility] if ready for discharge but may need to be re-scheduled Patient will need follow up with [facility] Dr. Astorga after hospital discharge Patient will need to to follow up with [facility] cardiology. Appointments for [facility] affiliated clinics can be made by calling Vital Signs: Date Time Temp Pulse Resp B/P (MAP) Pulse Ox O2 Delivery O2 Flow Rate FiO2 06/26/17 19:26 69 16 95 Room Air 06/26/17 16:00 Room Air 6.0 06/26/17 15:31 36.6 56 144/67 (92) 90 06/26/17 14:13 55 16 91 Room Air 06/26/17 12:04 36.5 58 23 134/56 (82) 91 Room Air 06/26/17 12:00 Room Air 06/26/17 10:36 55 18 134/65 (88) 93 BiPAP 06/26/17 10:03 54 20 130/69 (89) 93 BiPAP 6.0 06/26/17 09:36 36.6 61 20 125/68 (87) 91 BiPAP 06/26/17 09:20 Oxymask 06/26/17 09:06 36.7 63 20 139/61 (87) 92 BiPAP 06/26/17 08:50 60 20 116/61 91 Mask 8 06/26/17 08:45 59 20 119/52 91 Mask 8 06/26/17 08:40 61 22 124/63 91 Nasal Cannula 6 06/26/17 08:35 62 22 133/63 93 Mask 8 06/26/17 08:30 61 22 183/82 94 Mask 06/26/17 08:25 70 16 170/63 94 Mask 06/26/17 08:20 59 18 160/63 94 Mask 06/26/17 08:15 59 18 140/68 94 Mask 06/26/17 08:11 36.8 55 20 137/71 (93) 90 Room Air 06/26/17 08:05 57 18 155/68 92 Room Air 06/26/17 08:01 Room Air 06/26/17 07:19 58 16 90 Room Air 06/26/17 04:02 Room Air 06/26/17 03:43 36.8 54 20 120/63 (82) 94 BiPAP 2.0 06/26/17 02:21 59 16 94 BiPAP/CPAP 3.0 06/26/17 00:00 Room Air 06/25/17 23:26 71 16 90 Room Air 06/25/17 23:22 36.8 65 22 137/71 (93) 91 BiPAP 2.0 06/25/17 20:04 Room Air Lab Results: Results Past 24 Hours Test 06/26/17 06:38 06/26/17 08:29 06/26/17 09:38 Range/Units White Blood Count 8.87 4.8-10.8 K/uL Red Blood Count 4.23 4.2-5.4 M/uL Hemoglobin 13.3 12.0-16.0 g/dL Hematocrit 39.5 37-47 % Mean Corpuscular Volume 93.4 80-100 fL Mean Corpuscular Hemoglobin 31.4 25-34 pg Mean Corpuscular Hemoglobin Concent 33.7 32-36 g/dl Platelet Count 203 130-400 K/uL Mean Platelet Volume 10.2 7.4-10.4 fL Neutrophils (%) (Auto) 76.7 % Lymphocytes (%) (Auto) 17.7 % Monocytes (%) (Auto) 4.6 % Eosinophils (%) (Auto) 0.0 % Basophils (%) (Auto) 0.1 % Neutrophils # (Auto) 6.80 1.4-6.5 K/uL Lymphocytes # (Auto) 1.57 1.2-3.4 K/uL Monocytes # (Auto) 0.41 0.11-0.59 K/uL Eosinophils # (Auto) 0.00 0-0.5 K/uL Basophils # (Auto) 0.01 0-0.2 K/uL RDW Standard Deviation 49.9 36.4-46.3 fL RDW Coefficient of Variation 14.8 11.5-14.5 % Immature Granulocyte % (Auto) 0.9 % Immature Granulocyte # (Auto) 0.08 0.00-0.02 K/uL Sodium Level 140 136-145 mmol/L Potassium Level 3.5 3.5-5.1 mmol/L Chloride Level 103 98-107 mmol/L Carbon Dioxide Level 28 21-32 mmol/L Anion Gap 9.0 3-11 mmol/L Blood Urea Nitrogen 41 7-18 mg/dl Creatinine 1.25 0.60-1.20 mg/dl Est Creatinine Clear Calc Drug Dose 37.5 ml/min Estimated GFR () 46.4 Estimated GFR (Non- 40.0 BUN/Creatinine Ratio 32.4 10-20 Random Glucose 108 70-99 mg/dl Calcium Level 9.2 8.5-10.1 mg/dl Total Bilirubin 0.4 0.2-1 mg/dl Aspartate Amino Transf (AST/SGOT) 5 15-37 U/L Alanine Aminotransferase (ALT/SGPT) 19 12-78 U/L Alkaline Phosphatase 68 45-117 U/L Total Protein 7.0 6.4-8.2 gm/dl Albumin 3.7 3.4-5.0 gm/dl Globulin 3.3 2.5-4.0 gm/dl Albumin/Globulin Ratio 1.1 0.9-2 Microbiology Results 06/26/17 Fungal Smear, Received Pending 06/26/17 Fungal Culture, Received Pending 06/26/17 Acid Fast Stain, Received Pending 06/26/17 Mycobacterial Culture, Received Pending 06/26/17 Gram Stain, Received Pending 06/26/17 Bronchoalveolar Lavage Culture, Received Pending
[2017-06-26] MEDS: ACETAMINOPHEN 500 MG TAB PO SCH (21:05)
[2017-06-26] MEDS: ATORVASTATIN 20 MG TAB PO SCH (21:05)
[2017-06-27] VITALS (7 sets, daily range): BP systolic 121–155; BP diastolic 52–72; PULSE 50–83; TEMP 36.6–36.7; O2SAT 90–96
[2017-06-27] MEDS: LEVALBUTEROL 0.63MG/3 ML NEB INH SCH ×3 (01:44→14:32)
[2017-06-27] MEDS: METHYLPREDNISOLONE IV 30 MG in SYRINGE 0 ML IV SCH ×2 (02:11→10:01)
[2017-06-27] MEDS: DULERA~ORDER AWAITING ACTION SCH ×3 (08:00→15:55)
[2017-06-27] MEDS: FUROSEMIDE 40 MG TAB PO SCH (08:24)
[2017-06-27] MEDS: LISINOPRIL 5 MG TAB PO SCH (08:25)
[2017-06-27] MEDS: CHOLECALCIFEROL 1000 INTER.UNIT TAB PO SCH (08:25)
[2017-06-27] MEDS: MULTIVITAMIN TAB PO SCH (08:25)
[2017-06-27] MEDS: METOPROLOL TARTRATE 25 MG TAB PO SCH (08:26)
[2017-06-27] MEDS: PANTOprazole SOD 40 MG TAB PO SCH (08:26)
[2017-06-27] MEDS: SERTRALINE HCL 100 MG TAB PO SCH (08:26)
[2017-06-27] MEDS: ASPIRIN 81 MG ECTAB PO SCH (08:27)
[2017-06-27] MEDS: ENOXAPARIN 40 MG/0.4 ML SYR SQ SCH (08:27)
[2017-06-27] MEDS: FLUTICASONE PROPIONATE NA SPR 16 GM BTL SCH (08:27)
--- NOTE | 2017-06-27 13:10 | Progress Note ---
Internal Med Progress Note Date of Service: Jun 27, 2017. Provider Documentation: SUBJECTIVE: Patient still having some cough on exam. OBJECTIVE: General Appearance: no distress Head: normocephalic, atraumatic Eyes: normal inspection, sclerae normal ENT: hearing grossly normal, pharynx normal Neck: supple, no adenopathy Respiratory/Chest: congested, coughing Cardiovascular: regular rate, rhythm, no edema Abdomen/GI: normal bowel sounds, non tender, soft Back: normal inspection Extremities/Musculoskelatal: normal inspection, no pedal edema Neurologic/Psych: alert, normal mood/affect, oriented x 3 Skin: normal color ASSESSMENT & PLAN: 82 yo F with COPD who presents with worsening SOB and no improvement with outpatient treatment. 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 Transthoracic Echocardiogram completed 06/21/17 The left ventricular wall motion is normal. Ejection Fraction = 60-65%. Aortic valve regurgitation is present, but not well quantitated on this study, however it appears to be moderate in severity. Compared to the prior study dated 02/03/17, there has been no significant interval change Elevated troponins but no chest pain with normal EKG. Troponin trended from 0.05 to 0.09 to 0.086. As per cardiology evaluation 06/24/17: 1. Mild troponin I elevation, due to myocardial strain in the setting of COPD exacerbation, hypoxia 2. 5 beat run of nonsustained ventricular tachycardia on 06/21/17, 17 beat run of supraventricular tachycardia on 06/23/17 3. History of type A thoracic aortic dissection 4. History of hypertension with hypertensive heart disease 5. History of aortic valve regurgitation, stable on transthoracic echocardiogram compared to January 2017 6. Prolonged QT interval this admission Repeat EKG on 06/24/17 with resolution of prolonged QTc to 457 CKD III-renally dose medications History of aortic repair Hypertension - continue metoprolol, lisinopril. hydralazine prn for systolic blood pressure above 160 Depression/Anxiety continue sertraline DVT Ppx - Lovenox DNR as per conversation with admitting hospitalist physician, the patient, and the patient's daughter on admission Patient's daughter's phone number is [phone] Disposition: awaiting bronchoscopy lab results, awaiting for further clinical improvement for breathing and now is having possibly more coughing and congestion, Have discussed with Dr. Maxwell who will be taking over my current patient census on re-assessing Ms. Hsu later today Patient will need future follow up Amina Alcantar, DO Internal Medicine [facility] when ready for hospital discharge Patient will need follow up with [facility] Pulmonary Dr. Astorga after hospital discharge Patient will need to to follow up with [facility] cardiology. Appointments for [facility] affiliated clinics can be made by calling Vital Signs: Date Time Temp Pulse Resp B/P (MAP) Pulse Ox O2 Delivery O2 Flow Rate FiO2 06/27/17 12:00 Room Air 06/27/17 11:58 36.6 51 20 121/52 (75) 93 Room Air 06/27/17 08:00 Room Air 06/27/17 07:37 36.6 50 16 155/61 (92) 96 Room Air 06/27/17 07:15 83 16 92 Room Air 06/27/17 04:00 Room Air 93 06/27/17 03:17 36.7 52 19 146/72 (96) 93 Room Air 06/27/17 01:44 68 16 96 BiPAP/CPAP 2.0 06/27/17 00:01 Room Air 06/26/17 23:40 36.7 48 19 155/73 (100) 94 CPAP 06/26/17 23:18 68 96 3.0 06/26/17 20:00 Room Air 06/26/17 19:59 36.7 73 22 158/57 (90) 92 Room Air 06/26/17 19:26 69 16 95 Room Air 06/26/17 16:00 Room Air 6.0 06/26/17 15:31 36.6 56 144/67 (92) 90 06/26/17 14:13 55 16 91 Room Air
--- NOTE | 2017-06-27 15:15 | Progress Note ---
Progress Note Date of Service Jun 27, 2017. Progress Note This is a 82 year old female with a PMH of COPD, HARMEET on CPAP, chronic diastolic CHF, CKD stage 3, HTN - presented to the hospital with worsening shortness of breath/cough. She was diagnosed with acute COPD exacerbation and has been followed by pulmonology regarding this. She has been on IV steroids, nebulizer treatments. She had a bronchoscopy performed on 06/26. I got a call from nursing staff telling me that daughter and patient are requesting to be discharged home today. I spoke with the daughter, who tells me that her father is also in the emergency department at [facility]. Patient and daughter tell me that now would be a good time to go home because she would not have to care for her as he will be admitted to [facility]. She has been ambulating well with therapy using a walker. Tells me she is not more short of breath with dyspnea. At baseline, she is doing well, still has an intermittent cough, with some rhonchi. Denies all other symptoms and is eager to go home. Daughter would like home health nursing staff to come and check in on her mother. Plan is to discharge home with home health. Will discharge patient with a prednisone taper. Patient will continue to use Dulera. Urged patient to continue Spiriva as well as she stopped taking this on her own. Outpatient PCP follow-up.
[2017-06-27] MEDS ORDERED: LPR25 PO (15:23)
[2017-06-27] MEDS ORDERED: SPRIN INH (15:23)
[2017-06-27] MEDS ORDERED: PRED10TA PO (15:26)
--- NOTE | 2017-06-27 15:36 | Discharge Instructions ---
Discharge Instructions Date of Service Jun 27, 2017. Admission Reason for Admission: Copd Exacerbation Discharge Discharge Diagnosis / Problem: Acute COPD Exacerbation Discharge Goals Goal(s): Decrease discomfort, Improve function, Diagnostic testing, Therapeutic intervention Activity Recommendations Activity Limitations: resume your previous activity . Instructions / Follow-Up Instructions / Follow-Up Please follow-up with Dr. Olmos (covering for Dr. Alcantar) on June 30 at 1:00PM * You will be discharged on a prednisone taper as follows: * take 4 tablets (40mg) for three days, take 3 tablets for three days after that, take 2 tablets x 3 days, and then finally 1 tablet for the final three days * Stop taking Coreg and start Metoprolol instead * Continue Dulera, continue Spiriva on discharge * You will be discharged with home health Current Hospital Diet Patient's current hospital diet: AHA Diet (Heart Healthy) Discharge Diet Recommended Diet: AHA Diet (Heart Healthy) Procedures Procedures Performed: Bronchoscopy Pending Studies Studies pending at discharge: no Medical Emergencies . Who to Call and When: Medical Emergencies: If at any time you feel your situation is an emergency, please call 911 immediately. . Non-Emergent Contact Non-Emergency issues call your: Primary Care Provider, Console Manager . . "Provider Documentation" section prepared by Baudilio Maxwell. . VTE Core Measure Inpt VTE Proph given/why not?: Enoxaparin (Lovenox)SQ
--- NOTE | 2017-06-27 15:38 | Discharge Summary ---
Discharge Summary Date of Service Jun 27, 2017. Discharge Summary Admission Date: Jun 20, 2017 at 22:29 Discharge Date: Jun 27, 2017 Discharge Disposition: Home with services Principal Diagnosis: Acute COPD Exacerbation Elevated Troponin Medication Reconciliation New Medications: Prednisone Tab (Prednisone) 10 Mg Tab 10 MG PO UD for 12 Days, #30 TAB Tiotropium [place] (Spiriva Handihaler) 5 Puff/90 Mcg Aerp 2 PUFF INH DAILY for 30 Days, #30 CAP Metoprolol Tartrate (Lopressor) 25 Mg Tab 25 MG PO BID for 30 Days, #60 TAB Continued Medications: Acetaminophen (Tylenol) 500 Mg Tab 1000 MG PO HS, TAB Albuterol Hfa (Ventolin Hfa) 200 Puffs/80037 Mcg Aers 2-4 PUFFS INH Q4H PRN for SOB/Wheezing, INHALER Amoxicillin (Amoxil) 500 Mg Cap 500 MG PO, CAP 4 CAP PO 1 HOUR BEFORE PROCEDURE Aspirin (Aspirin Ec) 81 Mg Tab 81 MG PO DAILY Atorvastatin (Lipitor) 40 Mg Tab 40 MG PO QPM, TAB Azithromycin (Zithromax) 250 Mg Tab 1 PKT PO UD for 5 Days, #1 PKT Cholecalciferol (Vitamin D3) 1,000 Unit Tab 2 TAB PO DAILY, TAB Furosemide (Lasix) 40 Mg Tab 1.5 TAB PO DAILY Home O2 Therapy (Oxygen) Gas 2 LITERS NA HS USE DIRECTED WITH C-PAP. Levalbuterol (Levalbuterol HCl) 0.63 Mg/3 Ml Nebu 1 DOSE INH Q6H PRN for SOB/Wheezing Lisinopril (Zestril) 10 Mg Tab 5 MG PO DAILY, TAB Lorazepam (Ativan) 0.5 Mg Tab 0.5 MG PO TID PRN for Anxiety/Insomnia, TAB Mometasone Furoate-Formoterol (Dulera 200/5 Mcg) 1 Aer Aer 2 PUFFS INH BID Multivitamin (Multivitamin) Tab 1 TAB PO DAILY, 0 Refills Pantoprazole (Protonix) 40 Mg Tab 40 MG PO DAILY, TAB Sertraline (Zoloft) 100 Mg Tab 150 MG PO DAILY, TAB Tramadol (Ultram) 50 Mg Tab 50 MG PO Q6H PRN for Pain, TAB Discontinued Medications: Carvedilol (Coreg) 3.125 Mg Tab 3.125 MG PO DAILY, TAB Prednisone Tab (Prednisone) 10 Mg Tab 10 MG PO TAPER UD, TAB 4 TABS FOR 2 DAYS, 3 TABS FOR 2 DAYS, 2 TABS FOR 2 DAYS, 1 TAB FOR 2 DAYS. 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 ROS also reveals a R temporal headache and jaw pain associated with her recent diagnosis of TMJ disorder. She reports having taken her rescue pack consisting of Zpak and prednisone beginning three days ago, but did not improve. She denies fevers or chills. She states her is ill but doesn't have VIOLETTA. She has no other sick contacts. Daughter is at bedside and verifies all information presented. She is ambulatory but is very SOB with exertion at this time. She has conversational dyspnea and reports coughing all night long and not getting much sleep as a result. She denies nausea, vomiting , diarrhea, blood per rectum. She has chronic stress incontinence. History includes a prior aortic dissection repair, HARMEET on CPAP with 2L O2 at night, TMJ , HTN. She denies any chest pain currently. Physical Exam (per Admitting): General Appearance: WD/WN, + mild distress Head: normocephalic, atraumatic Eyes: normal inspection, PERRL, sclerae normal ENT: hearing grossly normal, pharynx normal, + pertinent finding (pain in R TMJ ) Neck: supple, no adenopathy Respiratory/Chest: no respiratory distress, + wheezing, + pertinent finding (excessive coughing and some conversational dyspnea present) Cardiovascular: regular rate, rhythm, no edema, no gallop, no JVD, no murmur , normal peripheral pulses Abdomen/GI: normal bowel sounds, non tender, soft Back: normal inspection Extremities/Musculoskelatal: normal inspection, no pedal edema 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 Transthoracic Echocardiogram completed 06/21/17 The left ventricular wall motion is normal. Ejection Fraction = 60-65%. Aortic valve regurgitation is present, but not well quantitated on this study, however it appears to be moderate in severity. Compared to the prior study dated 02/03/17, there has been no significant interval change Elevated troponins but no chest pain with normal EKG. Troponin trended from 0.05 to 0.09 to 0.086. As per cardiology evaluation 06/24/17: 1. Mild troponin I elevation, due to myocardial strain in the setting of COPD exacerbation, hypoxia 2. 5 beat run of nonsustained ventricular tachycardia on 06/21/17, 17 beat run of supraventricular tachycardia on 06/23/17 3. History of type A thoracic aortic dissection 4. History of hypertension with hypertensive heart disease 5. History of aortic valve regurgitation, stable on transthoracic echocardiogram compared to January 2017 6. Prolonged QT interval this admission Repeat EKG on 06/24/17 with resolution of prolonged QTc to 457 CKD III-renally dose medications History of aortic repair Hypertension - continue metoprolol, lisinopril. hydralazine prn for systolic blood pressure above 160 Depression/Anxiety continue sertraline DVT Ppx - Lovenox DNR as per conversation with admitting hospitalist physician, the patient, and the patient's daughter on admission Patient's daughter's phone number is [phone] Disposition: awaiting bronchoscopy lab results, awaiting for further clinical improvement for breathing and now is having possibly more coughing and congestion, Have discussed with Dr. Maxwell who will be taking over my current patient census on re-assessing Ms. Hsu later today Patient will need future follow up Amina Alcantar, DO Internal Medicine [facility] when ready for hospital discharge Patient will need follow up with [facility] Pulmonary Dr. Astorga after hospital discharge Patient will need to to follow up with [facility] cardiology. Appointments for [facility] affiliated clinics can be made by calling [phone] Total time spent on discharge = 45 minutes This includes examination of the patient, discharge planning, medication reconciliation, and communication with other providers. Discharge Instructions Please follow-up with Dr. Olmos (covering for Dr. Alcantar) on June 30 at 1:00PM * You will be discharged on a prednisone taper as follows: * take 4 tablets (40mg) for three days, take 3 tablets for three days after that, take 2 tablets x 3 days, and then finally 1 tablet for the final three days * Stop taking Coreg and start Metoprolol instead * Continue Dulera, continue Spiriva on discharge * You will be discharged with home health
[2017-06-28 14:58] LABS: HERPES SIMPLEX VIRUS CULT NOT ISOLATED (NOT ISOLATED)
== END 2017-06-27 16:30 | disposition home health service (06) | DRG 167 ==
LOC: C.EDB 19:14 → CANRESERV 22:08 → ENRESERV 22:08 → C.2T 22:29 → EDBEDREQSVC 22:31 → ENRESERV 22:48
PROVIDERS: ADMIT Hospitalist; ATTEND Hospitalist
PROC: 0B9F8ZX Drainage of Right Lower Lung Lobe, Via Natural or Artificial Opening Endoscopic, Diagnostic (ICD-10-PCS; principal; 2017-06-26 08:00)
PROC: 0B9L8ZX Drainage of Left Lung, Via Natural or Artificial Opening Endoscopic, Diagnostic (ICD-10-PCS; principal; 2017-06-26 08:00)
DX: J44.1 Chronic obstructive pulmonary disease with (acute) exacerbation (principal); I50.32 Chronic diastolic (congestive) heart failure; I13.0 Hypertensive heart and chronic kidney disease with heart failure and stage 1 through stage 4 chronic kidney disease, or unspecified chronic kidney disease; F41.9 Anxiety disorder, unspecified; N18.3 Chronic kidney disease, stage 3 (moderate); F32.9 Major depressive disorder, single episode, unspecified; J98.6 Disorders of diaphragm; E78.5 Hyperlipidemia, unspecified; M26.629 Arthralgia of temporomandibular joint, unspecified side; Z80.0 Family history of malignant neoplasm of digestive organs; Z83.3 Family history of diabetes mellitus; Z79.82 Long term (current) use of aspirin; Z88.1 Allergy status to other antibiotic agents; G47.33 Obstructive sleep apnea (adult) (pediatric); R00.0 Tachycardia, unspecified; R79.89 Other specified abnormal findings of blood chemistry; I35.1 Nonrheumatic aortic (valve) insufficiency; Z87.891 Personal history of nicotine dependence

== ENCOUNTER 2022-12-27 12:36 | Inpatient (IN) ==
--- NOTE | 2022-12-27 13:29 | XRay Report ---
XR chest 1V not portable CLINICAL HISTORY: Respiratory illness, no prior imaging TECHNIQUE: Single frontal radiograph of the chest was obtained. Comparison: None available at the time of this dictation. FINDINGS: Median sternotomy wires are unchanged. Cardiomegaly is noted. The aortic arch is calcified. The lungs are clear. No evidence of pleural effusion or pneumothorax. IMPRESSION: No acute chest disease. ACT 112: Negative or not required by law. Electronically signed by: John Obando M.D. 12/27/2022 1:27 PM
[2022-12-27 14:10] LABS: Basophils # (auto) 0.05 K/uL (0-0.2); Basophils % (auto) 0.8 %; Eosinophils # (auto) 0.15 K/uL (0-0.50); Eosinophils % (auto) 2.4 %; Hematocrit (blood only) 36.1 % (37.0-47.0); Hemoglobin 11.6 g/dl (12.0-16.0); Immature Granulocytes # (auto) 0.04 K/uL (0.01-0.20); Immature Granulocytes % (auto) 0.6 %; Lymphocytes # (auto) 1.49 K/uL (1.2-3.4); Lymphocytes % (auto) 23.4 %; Mean Corpuscular Hemoglobin 29.7 pg (25.0-34.0); Mean Corpuscular Hgb Conc 32.1 g/dL (32.0-36.0); Mean Corpuscular Volume 92.6 fL (80.0-100.0); Mean Platelet Volume 9.9 fL (9.4-12.4); Monocytes # (auto) 0.65 K/uL (0.11-0.59); Monocytes % (auto) 10.2 %; Neutrophils % (auto) 62.6 %; Platelet Count 192 K/uL (130-400); White Blood Count 6.38 K/ul (4.8-10.8)
[2022-12-27 14:27] LABS: Alanine Aminotransferase 13 U/L (7-52); Albumin Globulin Ratio 1.6 (0.9-2); Albumin Level 4.1 gm/dl (3.4-5.0); Alkaline Phosphatase 77 U/L (34-104); Anion Gap 7 (3-11); Aspartate Aminotransferase 14 U/L (13-39); BUN Creatinine Ratio 24.7 (10-20); Bilirubin,Total 0.4 mg/dl (0.2-1.0); Blood Urea Nitrogen 20 mg/dl (6-23); Calcium 9.6 mg/dl (8.6-10.3); Carbon Dioxide 28 mmol/L (21-32); Chloride 105 mmol/L (98-107); Est GFR (African American) 75.7 ml/min; Est GFR (Non-African American) 65.3 ml/min; Globulin 2.6 gm/dl (2.5-4.0); Glucose 85 mg/dl (70-99(Fasting)); Potassium 3.8 mmol/L (3.5-5.1); Sodium 140 mmol/L (136-145); Total Protein 6.7 gm/dl (6.0-8.3)
[2022-12-27] MEDS ORDERED: dexAMETHasone**PF** 10 MG/ML VIAL IV ONE (15:31)
[2022-12-27] MEDS ORDERED: ALBUT/IPRATROP 3MG/0.5MG NEB 3 ML VIAL NEB ONE (15:31)
[2022-12-27] MEDS ORDERED: MAGNESIUM SULFATE / D5W 1 GM/100 ML BAG IV STA (15:32)
--- NOTE | 2022-12-27 15:33 | Emergency Department Note ---
Impression & Plan Asthma exacerbation in COPD ED Provider Note Name: SATYA ADAME Age: 87 Sex: F Arrives Via: Walk-In Informant: Patient, daughter ED Provider: Chris Griffin MD Chief Complaint: Shortness of breath Impression: As per impression above Medical Decision Makin-year-old female with a long history of restrictive lung disease arrives for evaluation of worsening breathing over the last few days/week. On examination she has tight lung sounds with expiratory wheezing and a very junky cough. Not overtly hypoxic on arrival but sats in the mid 90s. She was given hour-long neb, magnesium, steroids. She does improve significantly but sats are still little low her lung still do not sound great. Chest x-ray and labs are unremarkable. I do not have any concerns for PE or dissection at this time. No evidence of ACS. Sats did start trending down a little bit. In the setting of known restrictive lung disease in the level of breathing work she is doing I think hospitalization is reasonable. The patient and daughter are comfortable with this plan. Hospitalist consulted for further management. Prior Medical Record and Triage/Nursing Notes reviewed by Me External chart reviewed by me including outpatient records and pulmonology records. Differentials:Pneumonia, pneumothorax, COPD, CHF, infections, cardiac ischemia, pulmonary embolism, musculoskeletal, gastrointestinal, as well as other pathologies. Vital Signs: reviewed and remarkable for no significant abnormalities Interventions: DuoNeb, IV steroids, IV magnesium, IV doxycycline Labs:Reviewed and remarkable for no significant abnormalities Imaging:Reviewed chest x-ray reveals emphysema per my interpretation no overt infiltrate Consults:Hospitalist Plan: Disposition: Hospitalization Condition: Fair History of Present Illness:87-year-old female arrives for evaluation of shortness of breath. Patient with worsening shortness of breath over the last 4 to 5 days. Patient states she is unable to ambulate due to shortness of breath. Severe deep coughing junky cough. Associated with exhaustion. No fevers, chills, nausea, vomiting, chest pain, back pain abdominal pain, syncope or other concerning signs or symptoms. She does admit to her legs have been increasingly swollen the last few days due to not taking her Lasix. No medications today due to feeling so sick that they came to ER. Past History:See Below Home Medications:See Below Allergies:See Below Vitals:Blood Pressure: 135/55, Pulse 66, RR 20, T 36.0C, O2 96% on RA Physical Exam: GENERAL: Patient is tired appearing and in minimal distress. EYES: No scleral icterus, unremarkable pupils. ENT: Mucous membranes moist, no nasal congestion. NECK: No masses appreciated, nomeningismus, trachea is midline. RESPIRATORY: Patient with very tight lung sounds throughout moderately dyspneic. Deep junky cough expiratory wheeze noted CARDIOVASCULAR: Regular rate and rhythm.No murmurs, rubs, gallops appreciated. GASTROINTESTINAL: Abdomen soft, non-tender, no peritonitis. EXTREMITIES: Normal motion all extremities, no cyanosis, no edema. NEUROLOGIC: Alert and oriented, no focal neurologic deficit appreciated SKIN: No rash, no jaundice, no diaphoresis. PSYCH: Appropriate GCS: 15 ED Course: Times/Reassessments: Patient is breathing a bit better though lungs sound quite junky and she has gradually worsening hypoxia think hospitalization indicated and she and daughter are agreeable to this Chris Griffin MD Past Med/Surg History Medical History (Updated 12/27/22 @ 22:08 by Chris Griffin MD) Anesthesia complication PATIENT STATES SHE HAS DIFFICULTY LYING FLAT ON BACK FOR PROLONGED TIME S/T B REATHING ISSUES. PT STATES THAT WHEN SHE HAD CATARACT SURGERY, THEY HAD A VERY TOUGH TIME KEEPING HER O2 SATS UP WHILE HAVING HER SUPINE FOR PROCEDURE Aneurysm HX OF AORTIC DISSECTION, S/P REPAIR 2009 [facility]. PT FOLLOWS WITH SHARA GROSSMAN PA-C AND DR. DELATORRE, [facility] [place] [facility]. 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 PT WEARS O2 HS AND PRN WITH EXERTION. Diverticular disease GERD (gastroesophageal reflux disease) History of neuropathy Hyperlipidemia Hypertension Sleep apnea CPAP Temporomandibular joint disorder Surgical History History of bronchoscopy X2 History of cataract extraction with lens replacement B/L History of dissecting abdominal aortic aneurysm repair 2009 [facility] History of tonsillectomy Social History Smoking Status: Former smoker Age Quit Using Tobacco: 74; Cigarettes Per Day: 3; Second Hand Exposure: Yes (SPOUSE WAS A SMOKER); Do You Dip or Chew Tobacco: No; Hx Alcohol Use: No Hx Substance Use: No Preferred Language: Bangladeshi Communication Ability: Effective [employer] Required: No Beliefs That Will Affect Care: None Current Living Situation: Alone Feels Safe at Home: Yes Assistive Devices: Glasses and Oxygen - at Night Allergies Allergies Allergy/AdvReac Type Severity Reaction Status Date / Time bacitracin Allergy Mild REDNESS Verified 08/05/22 10:42 neomycin Allergy Mild REDNESS Verified 08/05/22 10:42 polymyxin B Allergy Mild REDNESS Verified 08/05/22 10:42 Home Meds Home Medications Medication Instructions Recorded Confirmed Oxygen Home 09/04/18 12/27/22 acetaminophen 500 mg tablet 1,000 mg PO HS PRN Fever 09/04/18 12/27/22 atorvastatin 40 mg tablet 40 mg PO QAM 09/04/18 12/27/22 buspirone 5 mg tablet 5 mg PO AMHS 09/04/18 12/27/22 carvedilol 3.125 mg tablet 3.125 mg PO BID 09/04/18 12/27/22 pantoprazole 40 mg tablet,delayed 40 mg PO BID 09/04/18 12/27/22 release sertraline 100 mg tablet 100 mg PO QAM 09/04/18 12/27/22 tramadol 50 mg tablet 50 mg PO DAILY PRN Pain 09/04/18 12/27/22 famotidine 20 mg tablet 20 mg PO AMHS 12/24/19 12/27/22 furosemide 40 mg tablet 40 mg PO QAM 08/05/22 12/27/22 magnesium 250 mg tablet 250 mg PO HS 08/05/22 12/27/22 spironolactone 25 mg tablet 12.5 mg PO DAILY 08/05/22 12/27/22 albuterol sulfate 90 mcg/actuation 2 puff inhalation Q4H PRN 12/27/22 12/27/22 aerosol inhaler (Ventolin HFA) cough,SOB,or wheezing amoxicillin 500 mg capsule 2,000 mg PO ONCE PRN 1 hour before 12/27/22 12/27/22 appt aspirin 81 mg tablet,delayed 81 mg PO DAILY 12/27/22 12/27/22 release cholecalciferol (vitamin D3) 25 50 mcg PO QAM 12/27/22 12/27/22 mcg (1,000 unit) tablet (Vitamin D3) levalbuterol HCl 0.63 mg/3 mL 0.63 mg inhalation Q4 PRN 12/27/22 12/27/22 solution for nebulization wheezing,cough or SOB lisinopril 10 mg tablet 5 mg PO QAM 12/27/22 12/27/22 multivitamin with minerals 1 tab PO DAILY 12/27/22 12/27/22 Previous Rx's Medication Instructions Recorded fluticasone fur. 100 mcg-umeclid 1 inh inhalation DAILY #60 ea 08/10/22 62.5 mcg-vilant 25 mcg inhalat.powder (Trelegy Ellipta) Results & Data (ED) Vital Signs Vital Signs - 24 hr 12/27/22 12:49 12/27/22 15:43 12/27/22 16:17 Temperature 36.0 C L Temperature Source Temporal Artery Scan Pulse Rate 66 69 Pulse Rate [Apical] 74 Pulse Rate from SpO2 Sensor Respiratory Rate 20 18 Respiratory Effort / Characteristics Spontaneous Blood Pressure 135/55 L Blood Pressure [Right Arm] Blood Pressure Mean 81 Blood Pressure Mean [Right Arm] Pulse Oximetry 96 92 Oxygen Delivery Method Room Air Room Air Oxygen Flow Rate Sepsis Recent Fever Within 48 Hours No Sepsis New/Unexplained Change in Mental Status N/A Sepsis Action Taken by Nursing No Action Required 12/27/22 16:36 12/27/22 17:08 12/27/22 15:39 Temperature Temperature Source Pulse Rate 71 Pulse Rate [Apical] 94 H Pulse Rate from SpO2 Sensor 154 H Respiratory Rate 22 24 Respiratory Effort / Characteristics Blood Pressure Blood Pressure [Right Arm] Blood Pressure Mean Blood Pressure Mean [Right Arm] Pulse Oximetry 92 92 83 L Oxygen Delivery Method Room Air Room Air Oxygen Flow Rate Sepsis Recent Fever Within 48 Hours Sepsis New/Unexplained Change in Mental Status Sepsis Action Taken by Nursing 12/27/22 16:00 12/27/22 16:30 12/27/22 17:00 Temperature Temperature Source Pulse Rate 68 57 L 81 Pulse Rate [Apical] Pulse Rate from SpO2 Sensor 97 H 74 Respiratory Rate 21 23 20 Respiratory Effort / Characteristics Blood Pressure Blood Pressure [Right Arm] Blood Pressure Mean Blood Pressure Mean [Right Arm] Pulse Oximetry 93 98 94 Oxygen Delivery Method Oxygen Flow Rate Sepsis Recent Fever Within 48 Hours Sepsis New/Unexplained Change in Mental Status Sepsis Action Taken by Nursing 12/27/22 17:16 12/27/22 17:16 12/27/22 17:30 Temperature Temperature Source Pulse Rate 98 H 106 H Pulse Rate [Apical] Pulse Rate from SpO2 Sensor 96 H 107 H Respiratory Rate 26 H 25 H Respiratory Effort / Characteristics Blood Pressure 167/56 H Blood Pressure [Right Arm] Blood Pressure Mean 86 Blood Pressure Mean [Right Arm] Pulse Oximetry 97 93 Oxygen Delivery Method Oxygen Flow Rate Sepsis Recent Fever Within 48 Hours Sepsis New/Unexplained Change in Mental Status Sepsis Action Taken by Nursing 12/27/22 18:00 12/27/22 18:30 12/27/22 18:00 Temperature Temperature Source Pulse Rate 130 H 96 H Pulse Rate [Apical] 83 Pulse Rate from SpO2 Sensor 154 H 90 Respiratory Rate 24 24 21 Respiratory Effort / Characteristics Blood Pressure Blood Pressure [Right Arm] 167/56 H Blood Pressure Mean Blood Pressure Mean [Right Arm] 93 Pulse Oximetry 95 93 Oxygen Delivery Method Nasal Cannula Room Air Oxygen Flow Rate 2 Sepsis Recent Fever Within 48 Hours Sepsis New/Unexplained Change in Mental Status Sepsis Action Taken by Nursing 12/27/22 19:58 12/27/22 20:00 12/27/22 22:00 Temperature Temperature Source Pulse Rate 106 H Pulse Rate [Apical] 98 H 83 Pulse Rate from SpO2 Sensor Respiratory Rate 18 18 Respiratory Effort / Characteristics Blood Pressure Blood Pressure [Right Arm] 176/90 H Blood Pressure Mean Blood Pressure Mean [Right Arm] 118 Pulse Oximetry 95 94 Oxygen Delivery Method Nasal Cannula Oxygen Flow Rate 2 Sepsis Recent Fever Within 48 Hours Sepsis New/Unexplained Change in Mental Status Sepsis Action Taken by Nursing 12/27/22 22:15 Temperature Temperature Source Pulse Rate Pulse Rate [Apical] Pulse Rate from SpO2 Sensor Respiratory Rate Respiratory Effort / Characteristics Blood Pressure Blood Pressure [Right Arm] Blood Pressure Mean Blood Pressure Mean [Right Arm] Pulse Oximetry Oxygen Delivery Method Room Air Oxygen Flow Rate Sepsis Recent Fever Within 48 Hours Sepsis New/Unexplained Change in Mental Status Sepsis Action Taken by Nursing Laboratory Data 12/27/22 13:47 12/27/22 13:47 Lab Results 12/27/22 12/27/22 12/27/22 Range/Units 13:46 13:47 13:47 WBC 6.38 (4.8-10.8) K/ul RBC 3.90 L (4.20-5.40) M/uL Hgb 11.6 L (12.0-16.0) g/dl Hct 36.1 L (37.0-47.0) % MCV 92.6 (80.0-100.0) fL MCH 29.7 (25.0-34.0) pg MCHC 32.1 (32.0-36.0) g/dL RDW Std Deviation 51.0 H (36.4-46.3) fL RDW Coeff of Juarez 15.0 H (11.5-14.5) % Plt Count 192 (130-400) K/uL MPV 9.9 (9.4-12.4) fL Immature Gran % (Auto) 0.6 % Neut % (Auto) 62.6 % Lymph % (Auto) 23.4 % [place] % (Auto) 10.2 % Eos % (Auto) 2.4 % Baso % (Auto) 0.8 % Neut # (Auto) 4.00 (1.40-6.50) K/uL Lymph # (Auto) 1.49 (1.2-3.4) K/uL [place] # (Auto) 0.65 H (0.11-0.59) K/uL Eos # (Auto) 0.15 (0-0.50) K/uL Baso # (Auto) 0.05 (0-0.2) K/uL Immature Gran # (Auto) 0.04 (0.01-0.20) K/uL Sodium 140 (136-145) mmol/L Potassium 3.8 (3.5-5.1) mmol/L Chloride 105 (98-107) mmol/L Carbon Dioxide 28 (21-32) mmol/L Anion Gap 7 (3-11) BUN 20 (6-23) mg/dl Creatinine 0.81 (0.6-1.2) mg/dl Est Cr Clr Drug Dosing Not Reportable Est GFR ( Amer) 75.7 ml/min Est GFR (Non-Af Amer) 65.3 ml/min BUN/Creatinine Ratio 24.7 H (10-20) Glucose 85 (70-99(Fasting)) mg/dl Calcium 9.6 (8.6-10.3) mg/dl Magnesium 1.9 (1.7-2.4) mg/dl Total Bilirubin 0.4 (0.2-1.0) mg/dl AST 14 (13-39) U/L ALT 13 (7-52) U/L Alkaline Phosphatase 77 (34-104) U/L Total Protein 6.7 (6.0-8.3) gm/dl Albumin 4.1 (3.4-5.0) gm/dl Globulin 2.6 (2.5-4.0) gm/dl Albumin/Globulin Ratio 1.6 (0.9-2) Urine Color Urine Appearance (Clear) Urine pH (4.5-7.5) Ur Specific Dewey (1.000-1.030) Urine Protein (Negative) Urine Glucose (UA) (Negative) Urine Ketones (Negative) Urine Blood (Negative) Urine Nitrite (Negative) Urine Bilirubin (Negative) Urine Urobilinogen (Negative) Ur Leukocyte Esterase (Negative) Urine WBC (Auto) (0-5) /hpf Urine RBC (Auto) (0-4) /hpf U Hyaline Cast (Auto) (0-5) /lpf U Epithel Cells (Auto) (0-5) /lpf Urine Bacteria (Auto) (Negative) SARS-CoV-2 (PCR) NEGATIVE (Negative) Influenza Type A (PCR) Negative (Neg) Influenza Type B (PCR) Negative (Neg) RSV (RT-PCR) Negative (Neg) 12/27/22 Range/Units 15:28 WBC (4.8-10.8) K/ul RBC (4.20-5.40) M/uL Hgb (12.0-16.0) g/dl Hct (37.0-47.0) % MCV (80.0-100.0) fL MCH (25.0-34.0) pg MCHC (32.0-36.0) g/dL RDW Std Deviation (36.4-46.3) fL RDW Coeff of Juarez (11.5-14.5) % Plt Count (130-400) K/uL MPV (9.4-12.4) fL Immature Gran % (Auto) % Neut % (Auto) % Lymph % (Auto) % [place] % (Auto) % Eos % (Auto) % Baso % (Auto) % Neut # (Auto) (1.40-6.50) K/uL Lymph # (Auto) (1.2-3.4) K/uL [place] # (Auto) (0.11-0.59) K/uL Eos # (Auto) (0-0.50) K/uL Baso # (Auto) (0-0.2) K/uL Immature Gran # (Auto) (0.01-0.20) K/uL Sodium (136-145) mmol/L Potassium (3.5-5.1) mmol/L Chloride (98-107) mmol/L Carbon Dioxide (21-32) mmol/L Anion Gap (3-11) BUN (6-23) mg/dl Creatinine (0.6-1.2) mg/dl Est Cr Clr Drug Dosing Est GFR ( Amer) ml/min Est GFR (Non-Af Amer) ml/min BUN/Creatinine Ratio (10-20) Glucose (70-99(Fasting)) mg/dl Calcium (8.6-10.3) mg/dl Magnesium (1.7-2.4) mg/dl Total Bilirubin (0.2-1.0) mg/dl AST (13-39) U/L ALT (7-52) U/L Alkaline Phosphatase (34-104) U/L Total Protein (6.0-8.3) gm/dl Albumin (3.4-5.0) gm/dl Globulin (2.5-4.0) gm/dl Albumin/Globulin Ratio (0.9-2) Urine Color Yellow Urine Appearance Clear (Clear) Urine pH 5.5 (4.5-7.5) Ur Specific [place]wey 1.015 (1.000-1.030) Urine Protein Negative (Negative) Urine Glucose (UA) Negative (Negative) Urine Ketones Negative (Negative) Urine Blood Negative (Negative) Urine Nitrite Negative (Negative) Urine Bilirubin Negative (Negative) Urine Urobilinogen Negative (Negative) Ur Leukocyte Esterase Trace H (Negative) Urine WBC (Auto) 1-5 (0-5) /hpf Urine RBC (Auto) 0-4 (0-4) /hpf U Hyaline Cast (Auto) 1-5 (0-5) /lpf U Epithel Cells (Auto) 5-10 H (0-5) /lpf Urine Bacteria (Auto) Negative (Negative) SARS-CoV-2 (PCR) (Negative) Influenza Type A (PCR) (Neg) Influenza Type B (PCR) (Neg) RSV (RT-PCR) (Neg) Administered Medications Discontinued Medications Albuterol (Albut/Ipratrop 3mg/0.5mg Neb 3 Ml Vial) 12 ml NEB ONE ONE; Protocol Stop: 12/27/22 15:32 Last Admin: 12/27/22 16:13 Dose: 12 ml Documented By: NELI Dexamethasone Sodium Phosphate (DexamethasonePf 10 Mg/Ml Vial) 10 mg IV NOW ONE Stop: 12/27/22 15:32 Last Admin: 12/27/22 16:29 Dose: 10 mg Documented By: LEROY Magnesium Sulfate/Dextrose (Magnesium Sulfate / D5w) 1 gm in 100 mls @ 100 mls/hr IV NOW STA Stop: 12/27/22 16:31 Last Infusion: 12/27/22 17:53 Dose: 0 mls/hr Documented By: Admin: 12/27/22 16:29 Dose: 100 mls/hr Documented By: TBS Doxycycline Hyclate 100 mg/ (Dextrose) 110 mls @ 50 mls/hr IV NOW STA Stop: 12/27/22 19:40 Last Infusion: 12/27/22 21:07 Dose: 0 mls/hr Documented By: Admin: 12/27/22 18:01 Dose: 50 mls/hr Documented By: HS Imaging Data Radiologist's Impression: Chest X-Ray 12/27/22 12:54 XR chest 1V not portable CLINICAL HISTORY: Respiratory illness, no prior imaging TECHNIQUE: Single frontal radiograph of the chest was obtained. Comparison: None available at the time of this dictation. FINDINGS: Median sternotomy wires are unchanged. Cardiomegaly is noted. The aortic arch is calcified. The lungs are clear. No evidence of pleural effusion or pneumothorax. IMPRESSION: No acute chest disease. ACT 112: Negative or not required by law. Electronically signed by: John Obando M.D. 12/27/2022 1:27 PM Discharge Plan Visit Data Chief Complaint: Shortness of Breath/Dyspnea Stated Complaint: CONGESTED, SOB, WHEEZING ED Provider: Chris Griffin Discharge Problem: Asthma exacerbation in COPD Patient Disposition: Admitted As Inpatient Discharge Instructions Interventions: ED Discharge Assessment Last Done: 12/27/22 22:15 Forms Stand Alone Forms: My [facility] Pidefar[facility] Prescriptions Prescriptions: No Action magnesium 250 mg tablet 250 mg PO HS Trelegy Ellipta 100-62.5-25 mcg blister with device 1 inh INH DAILY Qty: 60 12RF famotidine 20 mg tablet 20 mg PO AMHS spironolactone 25 mg tablet 12.5 mg PO DAILY atorvastatin 40 mg Tablet 40 mg PO QAM buspirone 5 mg Tablet 5 mg PO AMHS sertraline 100 mg Tablet 100 mg PO QAM tramadol 50 mg Tablet 50 mg PO DAILY PRN (Reason: Pain) acetaminophen 500 mg Tablet 1,000 mg PO HS PRN (Reason: Fever) carvedilol 3.125 mg Tablet 3.125 mg PO BID pantoprazole 40 mg Tablet,Delayed Release (Dr/Ec) 40 mg PO BID (DME) Oxygen Home Liters Per Minute Rx Instructions: 2LPM HS, AND NEEDED WITH ACTIVITY. furosemide 40 mg tablet 40 mg PO QAM amoxicillin 500 mg capsule 2,000 mg PO ONCE PRN (Reason: 1 hour before appt) aspirin [Aspirin Low-Strength] 81 mg Tablet,Delayed Release (Dr/Ec) 81 mg PO DAILY lisinopril 10 mg tablet 5 mg PO QAM multivitamin with minerals Tablet 1 tab PO DAILY cholecalciferol (vitamin D3) [Vitamin D3] 25 mcg (1,000 unit) Tablet 50 mcg PO QAM levalbuterol HCl 0.63 mg/3 mL Solution For Nebulization 0.63 mg INHALATION Q4 PRN (Reason: wheezing,cough or SOB) albuterol sulfate [Ventolin HFA] 90 mcg/actuation HFA aerosol inhaler 2 puff INHALATION Q4H PRN (Reason: cough,SOB,or wheezing) Referrals Referrals: Amina Alcantar DO [Primary Care Provider] -
[2022-12-27 15:34] LABS: Influenza A virus by PCR Negative (Neg); Influenza B virus by PCR Negative (Neg); RSV by PCR Negative (Neg); SARS CoV2 RNA(COVID-19) Ceph NEGATIVE (Negative)
[2022-12-27 15:59] LABS: Magnesium 1.9 mg/dl (1.7-2.4)
[2022-12-27 16:27] LABS: Appearance Urine Clear (Clear); Bacteria Urine Automated Negative (Negative); Bilirubin Urine Negative (Negative); Blood Urine Negative (Negative); Color Urine Yellow; Glucose Urine UA Negative (Negative); Ketones Urine Negative (Negative); Leukocyte Esterase Urine Trace (Negative); Nitrite Urine Negative (Negative); Protein Urine Negative (Negative); RBC Urine Automated 0-4 /hpf (0-4); Specific Gravity Urine 1.015 (1.000-1.030); Urobilinogen Urine Negative (Negative); pH Urine 5.5 (4.5-7.5)
[2022-12-27] MEDS ORDERED: DOXYCYCLINE HYCLATE 100 MG in DEXTROSE 5% 100 ML IV STA (17:29)
[2022-12-27] MEDS ORDERED: LORazepam 0.5 MG TAB PO PRN (22:54)
--- NOTE | 2022-12-27 23:02 | History & Physical Report ---
Date of Service December 27, 2022 Assessment & Plan (1) COPD exacerbation: Plan: COPD EXACERBATION LIKELY SECONDARY TO ACUTE BRONCHITIS RULE OUT PNEUMONIA Also has history of obstructive sleep apnea, pulmonary hypertension, diaphragmatic paralysis Follows with Dr. Ivan as outpatient CT chest ordered ABG ordered Blood culture Sputum culture Ceftriaxone plus doxycycline day #1 Solu-Medrol 40 mg IV every 12 hours Levalbuterol/ipratropium every 6 hours Hypertonic saline every 12 hours Mucinex, incentive spirometry, flutter valve CPAP at night consult pulmonary service CONGESTIVE HEART FAILURE, DIASTOLIC TYPE, CHRONIC Not in exacerbation Continue usual Lasix per spironolactone, carvedilol, aspirin, Lipitor CKD STAGE III Stable GERD/HERNANDEZ ESOPHAGUS Continue Protonix and famotidine DEPRESSION, ANXIETY Continue buspirone, sertraline DVT prophylaxis Lovenox subcu daily CODE STATUS DNR confirmed by patient and daughter at the bedside DISPOSITION Lives with alone at home PT and OT evaluation when respiratory status is stable History of Present Illness Chief Complaint: Shortness of breath, cough x1 week Primary Care Provider: Amina Alcantar DO 87-year-old female with history of COPD, obstructive sleep apnea, pulmonary hypertension ,CHF diastolic type, etc. Presenting with shortness of breath and cough x1 week. Patient's history is supplemented by patient's daughter at the bedside. Patient has some chronic COPD on Trelegy and as needed nebs. She also requires CPAP at bedtime for obstructive sleep apnea. Patient has been experiencing progressive shortness of breath associated with cough, nasal congestion, sore throat for the past week. She also has chest congestion but cannot seem to bring up mucus or phlegm. Subjective chills but no fever at home. She has started prednisone 20 mg p.o. daily x2 days but with no improvement. At the ER, patient noted to have expiratory wheezing, given nebulization treatment and Decadron 10 mg IV. On exam, patient was on 2 L of nasal cannula, having some effort with speaking. States she feels about the same overall Having some shortness of breath specially after walking from the bathroom. No any other symptoms. Allergies Allergy/AdvReac Type Severity Reaction Status Date / Time bacitracin Allergy Mild REDNESS Verified 08/05/22 10:42 neomycin Allergy Mild REDNESS Verified 08/05/22 10:42 polymyxin B Allergy Mild REDNESS Verified 08/05/22 10:42 Home Medications Medication Instructions Recorded Confirmed Type Oxygen Home 09/04/18 12/27/22 History acetaminophen 500 mg tablet 1,000 mg PO HS PRN Fever 09/04/18 12/27/22 History atorvastatin 40 mg tablet 40 mg PO QAM 09/04/18 12/27/22 History buspirone 5 mg tablet 5 mg PO AMHS 09/04/18 12/27/22 History carvedilol 3.125 mg tablet 3.125 mg PO BID 09/04/18 12/27/22 History pantoprazole 40 mg tablet,delayed 40 mg PO BID 09/04/18 12/27/22 History release sertraline 100 mg tablet 100 mg PO QAM 09/04/18 12/27/22 History tramadol 50 mg tablet 50 mg PO DAILY PRN Pain 09/04/18 12/27/22 History famotidine 20 mg tablet 20 mg PO AMHS 12/24/19 12/27/22 History furosemide 40 mg tablet 40 mg PO QAM 08/05/22 12/27/22 History magnesium 250 mg tablet 250 mg PO HS 08/05/22 12/27/22 History spironolactone 25 mg tablet 12.5 mg PO DAILY 08/05/22 12/27/22 History fluticasone fur. 100 mcg-umeclid 1 inh inhalation DAILY #60 ea 08/10/22 12/27/22 Rx 62.5 mcg-vilant 25 mcg inhalat.powder (Trelegy Ellipta) albuterol sulfate 90 mcg/actuation 2 puff inhalation Q4H PRN 12/27/22 12/27/22 History aerosol inhaler (Ventolin HFA) cough,SOB,or wheezing amoxicillin 500 mg capsule 2,000 mg PO ONCE PRN 1 hour before 12/27/22 12/27/22 History appt aspirin 81 mg tablet,delayed 81 mg PO DAILY 12/27/22 12/27/22 History release cholecalciferol (vitamin D3) 25 50 mcg PO QAM 12/27/22 12/27/22 History mcg (1,000 unit) tablet (Vitamin D3) levalbuterol HCl 0.63 mg/3 mL 0.63 mg inhalation Q4 PRN 12/27/22 12/27/22 History solution for nebulization wheezing,cough or SOB lisinopril 10 mg tablet 5 mg PO QAM 12/27/22 12/27/22 History multivitamin with minerals 1 tab PO DAILY 12/27/22 12/27/22 History Past Med/Surg History Medical History (Updated 12/28/22 @ 02:24 by Salomón Johnson MD) Anesthesia complication PATIENT STATES SHE HAS DIFFICULTY LYING FLAT ON BACK FOR PROLONGED TIME S/T BREATHING ISSUES. PT STATES THAT WHEN SHE HAD CATARACT SURGERY, THEY HAD A VERY TOUGH TIME KEEPING HER O2 SATS UP WHILE HAVING HER SUPINE FOR PROCEDURE Aneurysm HX OF AORTIC DISSECTION, S/P REPAIR 2009 [facility]. PT FOLLOWS WITH SHARA GROSSMAN PA-C AND DR. DELATORRE, [facility]. 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 PT WEARS O2 HS AND PRN WITH EXERTION. Diverticular disease GERD (gastroesophageal reflux disease) History of neuropathy Hyperlipidemia Hypertension Sleep apnea CPAP Temporomandibular joint disorder Surgical History History of bronchoscopy X2 History of cataract extraction with lens replacement B/L History of dissecting abdominal aortic aneurysm repair 2009 [facility] History of tonsillectomy Social History Smoking Status: Never smoker Age Quit Using Tobacco: 74; Cigarettes Per Day: 3; Second Hand Exposure: Yes (SPOUSE WAS A SMOKER); Do You Dip or Chew Tobacco: No; Hx Alcohol Use: No Hx Substance Use: No Preferred Language: Dutch Communication Ability: Effective Non Profit Director Required: No Beliefs That Will Affect Care: None Current Living Situation: Alone Current Living Situation Comment: family surrounds her and takes care of her Other Information That Helps Us Care for You: No Feels Safe at Home: Yes Safety Concerns: Feels Safe At This Time Assistive Devices: Walker Review of Systems Review of Systems: all noted and negative except for above Physical Exam Physical Exam: General- oriented x 3, not in distress, speaks in sentences with no effort or accessory muscle use Head- atraumatic Eyes- PERRL, EOMI, anicteric ENT- oropharynx clear Neck- supple, no JVD, no adenopathy, no thyromegaly; carotids +2/2, no bruits appreciated Lungs-somewhat diminished breath sounds, faint wheezing bilaterally, no crackles Heart- normal rate, regular rhythm; no murmur, no gallop, no rub appreciated Abdomen- normal bowel sounds, nondistended, soft, nontender, no masses or hepatosplenomegaly Extremities-mild pretibial edema, no calf tenderness; peripheral pulses intact Neuro- alert, oriented x 3; CN 2-12 grossly intact; motor 5/5 bilaterally;sensation 100% on all extremities; no other gross focal neurologic deficits Skin- warm & dry Results & Data Results & Data Vital Signs (Past 12 Hours) Vital Signs Temp Pulse Pulse Resp BP BP Pulse Ox 12/27/22 22:15 12/27/22 22:00 83 18 176/90 H 94 12/27/22 20:00 98 H 18 95 12/27/22 19:58 106 H 12/27/22 18:00 83 21 167/56 H 93 12/27/22 18:30 96 H 24 95 12/27/22 18:00 130 H 24 12/27/22 17:30 106 H 25 H 93 12/27/22 17:16 167/56 H 12/27/22 17:16 98 H 26 H 97 12/27/22 17:00 81 20 94 12/27/22 16:30 57 L 23 98 12/27/22 16:00 68 21 93 12/27/22 15:39 71 24 83 L 12/27/22 17:08 92 12/27/22 16:36 94 H 22 92 12/27/22 16:17 74 18 92 12/27/22 15:43 69 12/27/22 12:49 36.0 C L 66 20 135/55 L 96 O2 Del Method O2 Flow Rate 12/27/22 22:15 Room Air 12/27/22 22:00 12/27/22 20:00 Nasal Cannula 2 12/27/22 19:58 12/27/22 18:00 Room Air 12/27/22 18:30 Nasal Cannula 2 12/27/22 18:00 12/27/22 17:30 12/27/22 17:16 12/27/22 17:16 12/27/22 17:00 12/27/22 16:30 12/27/22 16:00 12/27/22 15:39 12/27/22 17:08 Room Air 12/27/22 16:36 Room Air 12/27/22 16:17 Room Air 12/27/22 15:43 12/27/22 12:49 Room Air all noted and reviewed including below Code Status & VTE Plan VTE Prophylaxis Plan VTE Prophylaxis will be ordered: Yes
[2022-12-27] MEDS ORDERED: XOPENEX/ATROVENT 1.25mg/0.5MG NEB COMBO NEB SCH (23:03)
[2022-12-27] MEDS ORDERED: ACETAMINOPHEN 325 MG TAB PO PRN (23:03)
[2022-12-27] MEDS ORDERED: guaiFENesin 600 MG TABCR PO SCH (23:03)
[2022-12-27] MEDS ORDERED: traMADol HCL 50 MG TABLET PO PRN (23:03)
[2022-12-27] MEDS ORDERED: hydrALAZINE HCL 20 MG/ML VIAL IV PRN (23:03)
--- NOTE | 2022-12-27 23:09 | CT Scan Report ---
Exam(s): CT CHEST Without Contrast EXAM: CT Chest Without Intravenous Contrast CLINICAL HISTORY: Reason for exam: COPD exacerbation, r/o pneumonia. TECHNIQUE: Axial computed tomography images of the chest without intravenous contrast. CTDI is 25.44 mGy and DLP is 770.68 mGy-cm. Automated exposure control was utilized for the study. A dose lowering technique was utilized adhering to the principles of ALARA. COMPARISON: No relevant prior studies available. FINDINGS: Lungs: Flattening of the diaphragms with increased AP diameter of the chest, correlate for COPD. Dependent atelectasis. Pleural space: Unremarkable. No pneumothorax. No significant effusion. Heart: Cardiomegaly. No significant pericardial effusion. No significant coronary artery calcifications. Mediastinum: Moderate hiatal hernia. Bones/joints: Sternotomy wires. Degenerative changes of the spine. No acute fracture. No dislocation. Soft tissues: Unremarkable. 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 Atherosclerotic changes of the aorta. Lymph nodes: Unremarkable. No enlarged lymph nodes. IMPRESSION: 1. 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 2. Flattening of the diaphragms with increased AP diameter of the chest, correlate for COPD. No pleural effusion or pneumothorax. 3. Moderate hiatal hernia. Electronically signed by: Kwabena Rios MD 12/27/22 23:08 PM
[2022-12-27] MEDS: methylPREDNISolone 40 MG in SYRINGE 0 ML IV SCH (23:27)
[2022-12-27] MEDS: SPIRONOLACTONE 12.5 MG TAB PO SCH (23:27)
[2022-12-27] MEDS: PANTOprazole 40 MG TAB PO SCH (23:28)
[2022-12-27] MEDS: busPIRone 5 MG TAB PO SCH (23:28)
[2022-12-27] MEDS: FAMOTIDINE 20 MG TAB PO SCH (23:28)
[2022-12-27] MEDS: FUROSEMIDE 40 MG TAB PO SCH (23:28)
[2022-12-27] MEDS: MAGNESIUM OXIDE 400 MG TAB PO SCH (23:28)
[2022-12-27] MEDS: carvediloL 3.125 MG TAB PO SCH (23:28)
[2022-12-27] MEDS ORDERED: DOXYCYCLINE HYCLATE 100 MG CAP PO SCH (23:30)
[2022-12-27] MEDS ORDERED: cefTRIAXone SODIUM 2,000 MG in DEXTROSE 5% 50 ML IV SCH (23:30)
[2022-12-27 23:52] LABS: Base Excess ABG -0.2 mEq/L (-9-1.8); HCO3 ABG 24 mmol/L (19-24); Oxygen Saturation ABG 99.5 % (90-95); PCO2 ABG 37 mmHg (35-46); PO2 ABG 102 mmHg (80-95); pH ABG 7.42 (7.35-7.45)
[2022-12-28] MEDS ORDERED: BENZONATATE 100 MG CAPSULE PO PRN (00:12)
[2022-12-28] MEDS ORDERED: COUGH DROP (SUGAR FREE) LOZ 24 LOZ/1 BOX BUCCAL PRN (00:13)
[2022-12-28 00:21] LABS: Allen Test Pos (Pos)
[2022-12-28] MEDS: IPRATROPIUM BROMIDE NEB SOLN 0.02% 2.5 ML VIAL INH SCH ×4 (01:15→19:30)
[2022-12-28] MEDS: LEVALBUTEROL 1.25 MG/3 ML NEB NEB SCH ×4 (01:15→19:30)
[2022-12-28] MEDS: methylPREDNISolone 40 MG in SYRINGE 0 ML IV SCH ×3 (06:07→22:50)
[2022-12-28] MEDS: SODIUM CHLOR 7% 4 ML NEB NEB SCH ×2 (07:07)
[2022-12-28 07:39] LABS: Basophils # (auto) 0.01 K/uL (0-0.2); Basophils % (auto) 0.2 %; Hematocrit (blood only) 35.5 % (37.0-47.0); Hemoglobin 11.5 g/dl (12.0-16.0); Immature Granulocytes # (auto) 0.05 K/uL (0.01-0.20); Immature Granulocytes % (auto) 0.8 %; Lymphocytes # (auto) 0.77 K/uL (1.2-3.4); Lymphocytes % (auto) 11.9 %; Mean Corpuscular Hemoglobin 29.6 pg (25.0-34.0); Mean Corpuscular Hgb Conc 32.4 g/dL (32.0-36.0); Mean Corpuscular Volume 91.3 fL (80.0-100.0); Mean Platelet Volume 10.2 fL (9.4-12.4); Monocytes # (auto) 0.25 K/uL (0.11-0.59); Monocytes % (auto) 3.9 %; Neutrophils # (auto) 5.41 K/uL (1.40-6.50); Neutrophils % (auto) 83.2 %; Platelet Count 196 K/uL (130-400); RDW Coefficient of Variation 14.9 % (11.5-14.5); RDW Standard Deviation 49.8 fL (36.4-46.3); Red Blood Count 3.89 M/uL (4.20-5.40); White Blood Count 6.49 K/ul (4.8-10.8)
[2022-12-28 08:02] LABS: BUN Creatinine Ratio 27.8 (10-20); Calcium 9.8 mg/dl (8.6-10.3); Creatinine Clr Calc Pharmacy 51.6 ml/min; Est GFR (Non-African American) 67.3 ml/min
[2022-12-28] MEDS ORDERED: SODIUM CHLOR 7% 4 ML NEB NEB PRN (08:19)
--- NOTE | 2022-12-28 08:36 | Pulmonary Consultation ---
Date of Consultation December 28, 2022 Assessment & Plan (1) Restrictive lung disease: (2) HARMEET (obstructive sleep apnea): (3) Obesity: (4) Exertional shortness of breath: Plan Impression: 87-year-old female admitted with shortness of breath after viral infection. Her prior PFTs in July of this year showed an FEV1 and FVC of 65 and 68% predicted respectively with a 14% improvement in the FEV1. Diffusion capacity was 71% predicted and total lung capacity of 74% predicted. She does have some bronchitic complaints. She has underlying sleep disordered breathing. Not sure that COPD accounts for all of her somatic issues at this point in time. Recommendations: 1. Asthma/COPD exacerbation: Would continue aggressive bronchodilator. The patient is currently receiving Anoro and Flovent which should be adequate. She is on methylprednisolone but is not wheezing this morning so I think we can transition to oral prednisone. She is receiving Rocephin and doxycycline but I do not see evidence of pneumonia so we will de-escalate down to oral azithromycin. Increase Mucinex to 1200 mg daily. 2. Sleep disordered breathing: Continue CPAP nightly. The patient can bring her machine in from home if needed. 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 3. PT OT evaluations. Out of bed to chair as much as possible. 4. Her echocardiogram in August of this year showed moderate aortic insufficiency with moderate mitral regurgitation and grade 1 diastolic dysfunction. Query whether or not her valvular heart disease and cardiac issues could potentially be contributing to her shortness of breath and respiratory issues. She appears to be established with the [facility] cardiology group. Thanks for the opportunity participating care of this patient. Feel free to contact us with questions or concerns. We will follow until her respiratory status is stabilized. History of Present Illness Attending Physician: Oscar Mcdermott MD History of Present Illness Asked by hospitalist to evaluate this patient admitted with presumptive COPD exacerbation. History is obtained from discussion with the patient as well as review the electronic medical record. The patient is an 87-year-old female who follows with Dr. Ivan in the outpatient setting. She was last seen about 3 months ago. She has restrictive PFTs and an elevated hemidiaphragm. No evidence of airflow obstruction however the patient feels better with inhaled corticosteroid/long-acting beta agonist/anticholinergics and has been maintained on these. She presented to the hospital yesterday with a variety of somatic complaints. She states her mobility is limited and she complains of hip and shoulder discomfort as well as knee discomfort. She developed a upper respiratory infection a few weeks ago and has had persistent issues with coughing. She is incontinent with a cough which is problematic for her. She has been placed on prednisone but failed to improve. She was seen in the emergency room and noted to be wheezing and given Decadron as well as nebulized therapies. She was admitted to the hospital and continues to complain of shortness of breath and inability to be mobile. The patient states that she is reluctant to remain in the hospital. She only came to the emergency room to "get checked out". Allergies Allergy/AdvReac Type Severity Reaction Status Date / Time bacitracin Allergy Mild REDNESS Verified 08/05/22 10:42 neomycin Allergy Mild REDNESS Verified 08/05/22 10:42 polymyxin B Allergy Mild REDNESS Verified 08/05/22 10:42 Home Medications Medication Instructions Recorded Confirmed Type Oxygen Home 09/04/18 12/27/22 History acetaminophen 500 mg tablet 1,000 mg PO HS PRN Fever 09/04/18 12/27/22 History atorvastatin 40 mg tablet 40 mg PO QAM 09/04/18 12/27/22 History buspirone 5 mg tablet 5 mg PO AMHS 09/04/18 12/27/22 History carvedilol 3.125 mg tablet 3.125 mg PO BID 09/04/18 12/27/22 History pantoprazole 40 mg tablet,delayed 40 mg PO BID 09/04/18 12/27/22 History release sertraline 100 mg tablet 100 mg PO QAM 09/04/18 12/27/22 History tramadol 50 mg tablet 50 mg PO DAILY PRN Pain 09/04/18 12/27/22 History famotidine 20 mg tablet 20 mg PO AMHS 12/24/19 12/27/22 History furosemide 40 mg tablet 40 mg PO QAM 08/05/22 12/27/22 History magnesium 250 mg tablet 250 mg PO HS 08/05/22 12/27/22 History spironolactone 25 mg tablet 12.5 mg PO DAILY 08/05/22 12/27/22 History fluticasone fur. 100 mcg-umeclid 1 inh inhalation DAILY #60 ea 08/10/22 12/27/22 Rx 62.5 mcg-vilant 25 mcg inhalat.powder (Trelegy Ellipta) albuterol sulfate 90 mcg/actuation 2 puff inhalation Q4H PRN 12/27/22 12/27/22 History aerosol inhaler (Ventolin HFA) cough,SOB,or wheezing amoxicillin 500 mg capsule 2,000 mg PO ONCE PRN 1 hour before 12/27/22 12/27/22 History appt aspirin 81 mg tablet,delayed 81 mg PO DAILY 12/27/22 12/27/22 History release cholecalciferol (vitamin D3) 25 50 mcg PO QAM 12/27/22 12/27/22 History mcg (1,000 unit) tablet (Vitamin D3) levalbuterol HCl 0.63 mg/3 mL 0.63 mg inhalation Q4 PRN 12/27/22 12/27/22 History solution for nebulization wheezing,cough or SOB lisinopril 10 mg tablet 5 mg PO QAM 12/27/22 12/27/22 History multivitamin with minerals 1 tab PO DAILY 12/27/22 12/27/22 History Patient History Medical History (Updated 12/28/22 @ 02:24 by Salomón Johnson MD) Anesthesia complication PATIENT STATES SHE HAS DIFFICULTY LYING FLAT ON BACK FOR PROLONGED TIME S/T BREATHING ISSUES. PT STATES THAT WHEN SHE HAD CATARACT SURGERY, THEY HAD A V ANA TOUGH TIME KEEPING HER O2 SATS UP WHILE HAVING HER SUPINE FOR PROCEDURE Aneurysm HX OF AORTIC DISSECTION, S/P REPAIR 2009 [facility]. PT FOLLOWS WITH SHARA GROSSMAN PA-C AND DR. DELATORRE, [facility]. 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 PT WEARS O2 HS AND PRN WITH EXERTION. Diverticular disease GERD (gastroesophageal reflux disease) History of neuropathy Hyperlipidemia Hypertension Sleep apnea CPAP Temporomandibular joint disorder Surgical History History of bronchoscopy X2 History of cataract extraction with lens replacement B/L History of dissecting abdominal aortic aneurysm repair 2009 [facility] History of tonsillectomy Social History Smoking Status: Never smoker Age Quit Using Tobacco: 74; Cigarettes Per Day: 3; Second Hand Exposure: Yes (SPOUSE WAS A SMOKER); Do You Dip or Chew Tobacco: No; Hx Alcohol Use: No Hx Substance Use: No Preferred Language: Spanish Communication Ability: Effective Salt Refiner Required: No Beliefs That Will Affect Care: None Current Living Situation: Alone Current Living Situation Comment: family surrounds her and takes care of her Other Information That Helps Us Care for You: No Feels Safe at Home: Yes Safety Concerns: Feels Safe At This Time Assistive Devices: Walker Review of Systems Review of Systems: Please refer to admission H&P. No additions or deletions Physical Exam Constitutional: WD/WN, vitals as above Neck: trachea midline, no thyromegaly Respiratory: normal respiratory effort, lungs clear to auscultation Cardiovascular: RRR, no murmur, no edema Gastrointestinal (Abdomen): normal bowel sounds, soft, nontender, no hepatosplenomegaly Musculoskeletal: Extremities: extremities normal to inspection Skin: no rashes, warm and dry Neurologic: Nonfocal exam Lymphatic: no cervical lymphadenopathy Results & Data Results & Data Vital Signs (Past 12 Hours) Vital Signs Temp Pulse Pulse Resp BP Pulse Ox O2 Del Method 12/28/22 07:54 36.3 C L 73 20 160/65 H 100 Nebulizer 12/28/22 07:08 82 16 97 Nasal Cannula 12/27/22 22:54 82 12/28/22 03:00 36.5 C 64 16 142/66 H 93 Nasal Cannula 12/28/22 01:15 76 18 97 CPAP 12/28/22 01:15 76 26 H 97 12/28/22 00:03 18 97 Nasal Cannula 12/27/22 23:39 Nasal Cannula 12/27/22 23:20 36.5 C 79 18 144/79 H 96 Nasal Cannula 12/27/22 22:15 Room Air 12/27/22 22:00 83 18 176/90 H 94 O2 Flow Rate 12/28/22 07:54 12/28/22 07:08 2 12/27/22 22:54 12/28/22 03:00 2 12/28/22 01:15 2 12/28/22 01:15 2 12/28/22 00:03 1 12/27/22 23:39 2 12/27/22 23:20 12/27/22 22:15 12/27/22 22:00 Critical Care Results & Data Vital Signs (Past 12 Hours) Vital Signs Temp Pulse Pulse Resp BP Pulse Ox O2 Del Method 12/28/22 07:54 36.3 C L 73 20 160/65 H 100 Nebulizer 12/28/22 07:08 82 16 97 Nasal Cannula 12/27/22 22:54 82 12/28/22 03:00 36.5 C 64 16 142/66 H 93 Nasal Cannula 12/28/22 01:15 76 18 97 CPAP 12/28/22 01:15 76 26 H 97 12/28/22 00:03 18 97 Nasal Cannula 12/27/22 23:39 Nasal Cannula 12/27/22 23:20 36.5 C 79 18 144/79 H 96 Nasal Cannula 12/27/22 22:15 Room Air 12/27/22 22:00 83 18 176/90 H 94 O2 Flow Rate 12/28/22 07:54 12/28/22 07:08 2 12/27/22 22:54 12/28/22 03:00 2 12/28/22 01:15 2 12/28/22 01:15 2 12/28/22 00:03 1 12/27/22 23:39 2 12/27/22 23:20 12/27/22 22:15 12/27/22 22:00 Lab & Micro Results (Past 24 Hours) RBC 3.89 M/uL (4.20-5.40) L 12/28/22 WBC 6.49 K/ul (4.8-10.8) 12/28/22 Hgb 11.5 g/dl (12.0-16.0) L 12/28/22 Hct 35.5 % (37.0-47.0) L 12/28/22 MCV 91.3 fL (80.0-100.0) 12/28/22 MCH 29.6 pg (25.0-34.0) 12/28/22 MCHC 32.4 g/dL (32.0-36.0) 12/28/22 RDW Standard Deviation 49.8 fL (36.4-46.3) H 12/28/22 RDW Coefficient of Variation 14.9 % (11.5-14.5) H 12/28/22 Plt Count 196 K/uL (130-400) 12/28/22 MPV 10.2 fL (9.4-12.4) 12/28/22 Neutrophils (%) (Auto) 83.2 % 12/28/22 Lymphocytes (%) (Auto) 11.9 % 12/28/22 Monocytes # (Auto) 0.25 K/uL (0.11-0.59) 12/28/22 Eosinophils # (Auto) 0.00 K/uL (0-0.50) 12/28/22 Immature Granulocyte % (Auto) 0.8 % 12/28/22 Neutrophils # (Auto) 5.41 K/uL (1.40-6.50) 12/28/22 Lymphocytes # (Auto) 0.77 K/uL (1.2-3.4) L 12/28/22 Monocytes # (Auto) 0.25 K/uL (0.11-0.59) 12/28/22 Eosinophils # (Auto) 0.00 K/uL (0-0.50) 12/28/22 Basophils # (Auto) 0.01 K/uL (0-0.2) 12/28/22 Immature Granulocyte # (Auto) 0.05 K/uL (0.01-0.20) 3 Na 139 mmol/L (136-145) 12/28/22 K 4.0 mmol/L (3.5-5.1) 12/28/22 Cl 102 mmol/L (98-107) 12/28/22 CO2 30 mmol/L (21-32) 12/28/22 Anion Gap 7 (3-11) 12/28/22 BUN 22 mg/dl (6-23) 12/28/22 Creatinine 0.79 mg/dl (0.6-1.2) 12/28/22 Estimated GFR ( Amer) 78.0 ml/min 12/28/22 Estimated GFR (Non-Af Amer) 67.3 ml/min 12/28/22 BUN/Creatinine Ratio 27.8 (10-20) H 12/28/22 Glu 122 mg/dl (70-99(Fasting)) H 12/28/22 Ca 9.8 mg/dl (8.6-10.3) 12/28/22 Total Bilirubin 0.4 mg/dl (0.2-1.0) 12/27/22 AST 14 U/L (13-39) 12/27/22 ALT 13 U/L (7-52) 12/27/22 Alkaline Phosphatase 77 U/L (34-104) 12/27/22 TP 6.7 gm/dl (6.0-8.3) 12/27/22 Albumin 4.1 gm/dl (3.4-5.0) 12/27/22 Globulin 2.6 gm/dl (2.5-4.0) 12/27/22 Albumin/Globulin Ratio 1.6 (0.9-2) 12/27/22 Mg 1.9 mg/dl (1.7-2.4) 12/27/22 13:47 Calcium Level 9.8 mg/dl (8.6-10.3) 12/28/22 07:10 Arterial Blood pH 7.42 (7.35-7.45) 12/27/22 23:42 Arterial Blood Partial Pressure CO2 37 mmHg (35-46) 12/27/22 23 :42 Arterial Blood Partial Pressure O2 102 mmHg (80-95) H 12/27/22 23:42 Arterial Blood HCO3 24 mmol/L (19-24) 12/27/22 23:42 Arterial Blood Base Excess -0.2 mEq/L (-9-1.8) 12/27/22 23:42 Arterial Blood Oxygen Saturation 99.5 % (90-95) H 12/27/22 23:4 2 Blood Gas Oxygen Given 1 L 12/27/22 23:42 Robin Test Pos (Pos) 12/27/22 23:42 Diagnostic Findings (Past 24 Hours) Chest X-Ray 12/27/22 12:54 XR chest 1V not portable CLINICAL HISTORY: Respiratory illness, no prior imaging TECHNIQUE: Single frontal radiograph of the chest was obtained. Comparison: None available at the time of this dictation. FINDINGS: Median sternotomy wires are unchanged. Cardiomegaly is noted. The aortic arch is calcified. The lungs are clear. No evidence of pleural effusion or pneumothorax. IMPRESSION: No acute chest disease. ACT 112: Negative or not required by law. Electronically signed by: John Obando M.D. 12/27/2022 1:[address] 12/27/22 18:20 Exam(s): CT CHEST Without Contrast EXAM: CT Chest Without Intravenous Contrast CLINICAL HISTORY: Reason for exam: COPD exacerbation, r/o pneumonia. TECHNIQUE: Axial computed tomography images of the chest without intravenous contrast. CTDI is 25.44 mGy and DLP is 770.68 mGy-cm. Automated exposure control was utilized for the study. A dose lowering technique was utilized adhering to the principles of ALARA. COMPARISON: No relevant prior studies available. FINDINGS: Lungs: Flattening of the diaphragms with increased AP diameter of the chest, correlate for COPD. Dependent atelectasis. Pleural space: Unremarkable. No pneumothorax. No significant effusion. Heart: Cardiomegaly. No significant pericardial effusion. No significant coronary artery calcifications. Mediastinum: Moderate hiatal hernia. Bones/joints: Sternotomy wires. Degenerative changes of the spine. No acute fracture. No dislocation. Soft tissues: Unremarkable. 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 Atherosclerotic changes of the aorta. Lymph nodes: Unremarkable. No enlarged lymph nodes. IMPRESSION: 1. 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 2. Flattening of the diaphragms with increased AP diameter of the chest, correlate for COPD. No pleural effusion or pneumothorax. 3. Moderate hiatal hernia. Electronically signed by: Kwabena Rios MD 12/27/22 23:08 PM I & O Totals 24 Hours 12/27/22 12/28/22 12/29/22 06:59 06:59 06:59 Intake Total 280 / 280 Output Total 1999 Balance -1720 / -1720 Cumulative 12/27/22 12:36 thru 12/28/22 08:16 Intake Total 280 Output Total 1999 Balance -1720 RT Ventilator Mngmt (Last Documented) Ventilator Ordered Settings Respiratory Rate 20 12/28/22 07:54 Ventilator - PT Measurements Respiratory Rate 20 PG Care Time/CCT Total # of Minutes Spent Total Time Spent with Patient: Total time spent is greater than 50% in coordination of care (as documented) at patient's floor/unit and/or counseling patient: Coding Level of Care Code 21844 INT INP/OBS CARE 3/75MIN Diagnoses Restrictive lung disease J98.4 HARMEET (obstructive sleep apnea) G47.33 Obesity E66.9 Exertional shortness of breath R06.02
[2022-12-28] MEDS: FAMOTIDINE 20 MG TAB PO SCH ×2 (08:44→20:54)
[2022-12-28] MEDS: SERTRALINE HCL 100 MG TABLET PO SCH (08:45)
[2022-12-28] MEDS: CEROVITE ADV FORMULA TAB PO SCH (08:45)
[2022-12-28] MEDS: busPIRone 5 MG TAB PO SCH ×2 (08:45→20:53)
[2022-12-28] MEDS: carvediloL 3.125 MG TAB PO SCH ×2 (08:45→20:53)
[2022-12-28] MEDS: SPIRONOLACTONE 12.5 MG TAB PO SCH (08:45)
[2022-12-28] MEDS: FUROSEMIDE 40 MG TAB PO SCH (08:45)
[2022-12-28] MEDS: ATORVASTATIN 40 MG TAB PO SCH (08:45)
[2022-12-28] MEDS: lisinopril 5 MG TAB PO SCH (08:45)
[2022-12-28] MEDS: PANTOprazole 40 MG TAB PO SCH ×2 (08:45→20:53)
[2022-12-28] MEDS: ASPIRIN 81 MG ECTAB PO SCH (08:45)
[2022-12-28] MEDS: UMECLIDINIUM/VILANTEROL 62.5/25MCG 7 PUFFS/INHALER INH SCH (08:46)
[2022-12-28] MEDS: FLUTICASONE FUROATE 100MCG 14 PUFFS/INHALER INH SCH (08:46)
[2022-12-28] MEDS ORDERED: DOXYCYCLINE HYCLATE 100 MG CAP PO SCH (09:00)
[2022-12-28] MEDS ORDERED: NON-FORMULARY MEDICATION (Fluticasone-Umeclidin-Vilanter [Trelegy Ellipta] 100-62.5-25 mcg INH SCH (09:00)
[2022-12-28] MEDS: AZITHROMYCIN 250 MG TAB PO SCH (10:38)
[2022-12-28] MEDS: guaiFENesin 600 MG TABCR PO SCH ×2 (10:38→20:53)
[2022-12-28] MEDS: ENOXAPARIN INJ 40 MG/0.4 ML SYR SQ SCH (10:38)
--- NOTE | 2022-12-28 14:29 | CT Scan Report ---
CT soft tissue neck wo con HISTORY: 87 years-old Female r/o right neck mass patient presents with palpable abdomen abnormality of the right neck COMPARISON: None TECHNIQUE: Multiple axial CT images of the soft tissues of the neck were obtained without the use of IV contrast. A dose lowering technique was used consistent with the principals of ERIKA. 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 No acute intracranial abnormality. Art ifact from dental amalgam hardware. Parapharyngeal fat planes are symmetric and well-maintained. Art nt airway. No acute inflammatory changes or fluid collections. No mass lesions identified. Surgical c lips anterior to the thyroid. Outside plaque of the carotid bulbs. Unremarkable appearance of the par otid and submandibular glands. Lung apices are clear without pneumothorax. No acute fracture. Mild mucosal thickening in the paranas al sinuses. Mastoid air cells are clear. Degenerative changes of the spine. No acute fracture or dest ructive bone lesion. IMPRESSION: 1. No acute inflammatory changes or adenopathy. 2. No mass lesion identified within the right neck. Findings could be correlated with physical exam f indings and ultrasound if there is further clinical concern. ACT 112: Negative or not required by law. The above report was generated using voice recognition software. It may contain grammatical, syntax o r spelling errors. Electronically signed by: Magdy Glass M.D. 12/28/2022 2:28 PM
--- NOTE | 2022-12-28 14:52 | CT Scan Report ---
CT abd pelvis wo con CLINICAL HISTORY: weight loss, r/o mass TECHNIQUE: Helical axial images of the abdomen and pelvis were obtained. Automated dose lowering tech niques and/or adjustment according to patient size were utilized for this exam. This exam was perfor med without intravenous contrast. COMPARISON: None available at the time of this dictation. FINDINGS: Lower chest: Bibasilar atelectasis versus scarring is seen. Liver: Unremarkable. No focal lesions are seen. Gallbladder and biliary tree: Cholelithiasis is seen without evidence of cholecystitis. No intra- or extrahepatic biliary ductal dilation. Pancreas: Unremarkable, no focal lesions. Spleen: Unremarkable. Adrenals: Unremarkable. Kidneys and ureters: Unremarkable. Bladder: Unremarkable. Reproductive organs: Calcified fibroid is seen. Right adnexal cystic lesion is seen. Bowel: Diverticulosis is seen without evidence of diverticulitis. The appendix is normal. There is a moderate hiatal hernia. Lymph nodes Retroperitoneal: Unremarkable. Pelvic: Unremarkable. Mesenteric: Unremarkable. Peritoneum: Normal. Vessels: Atherosclerotic calcifications are seen. Abdominal wall: Small bilateral fat-containing inguinal hernias are seen, with a small amount of flui d in the left hernia. Bones: Degenerative changes in the visualized spine. IMPRESSION: No acute abnormalities and in particular no masses to explain weight loss. ACT 112: Negative or not required by law. Electronically signed by: John Obando M.D. 12/28/2022 2:50 PM
--- NOTE | 2022-12-28 18:58 | Hospitalist Progress Note ---
Date of Service December 28, 2022 Assessment & Plan (1) COPD exacerbation: Plan: COPD EXACERBATION LIKELY SECONDARY TO ACUTE BRONCHITIS RULE OUT PNEUMONIA Also has history of obstructive sleep apnea, pulmonary hypertension, diaphragmatic paralysis Follows with Dr. Ivan as outpatient CT chest ordered - 1. 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 2. Flattening of the diaphragms with increased AP diameter of the chest, correlate for COPD. No pleural effusion or pneumothorax. 3. Moderate hiatal hernia. ABG ordered Blood culture -pending Sputum culture- pending Ceftriaxone plus doxycycline started on admission Solu-Medrol 40 mg IV every 12 hours Levalbuterol/ipratropium every 6 hours Hypertonic saline every 12 hours Mucinex, incentive spirometry, flutter valve CPAP at night Consulted pulmonary service - continue aggressive bronchodilator. The patient is currently receiving Anoro and Flovent which should be adequate. She is on methylprednisolone - we can transition to oral prednisone. She is receiving Rocephin and doxycycline but I do not see evidence of pneumonia so we will de- escalate down to oral azithromycin. Increase Mucinex to 1200 mg daily. CONGESTIVE HEART FAILURE, DIASTOLIC TYPE, CHRONIC Not in exacerbation Continue usual Lasix per spironolactone, carvedilol, aspirin, Lipitor CKD STAGE III Stable GERD/HERNANDEZ ESOPHAGUS Continue Protonix and famotidine DEPRESSION, ANXIETY Continue buspirone, sertraline DVT prophylaxis Lovenox subcu daily CODE STATUS DNR confirmed by patient and daughter at the bedside DISPOSITION Lives with alone at home PT and OT evaluation when respiratory status is stable Admission and Anticipated Discharge Date Admission Date: December 27, 2022 Subjective Pt seen in follow up of shortness of breath, copd exacerbation Currently sitting up in bed, in NAD Feeling better now, says she is not coughing as frequently as yesterday reports + sputum production no chest pain, no abd. pain, no fever, chills. Pt's daughter present at the bedside Review of Systems Review of Systems: All systems reviewed & are unremarkable except as noted in Subjective Physical Exam Physical Exam: General- oriented x 3, not in distress, speaks in sentences with no effort or accessory muscle use Head- atraumatic Eyes- PERRL, EOMI, anicteric ENT- oropharynx clear Neck- supple, no JVD, no adenopathy Lungs-somewhat diminished breath sounds, faint wheezing bilaterally, no crackles Heart- normal rate, regular rhythm; no murmur Abdomen- normal bowel sounds, nondistended, soft, nontender Extremities- no LE edema, no calf tenderness; peripheral pulses intact, moves extremities Neuro- alert, oriented x 3; speech fluent, no facial asymmetry, moves extremities Skin- warm & dry Results & Data Results & Data Vital Signs (Past 12 Hours) Vital Signs Temp Pulse Pulse Resp BP Pulse Ox O2 Del Method 12/28/22 16:39 Nasal Cannula 12/28/22 15:34 36.7 C 75 18 127/67 96 Nasal Cannula 12/28/22 12:46 86 18 97 Nasal Cannula 12/28/22 11:29 36.7 C 53 L 20 127/74 95 Nasal Cannula 12/28/22 07:30 72 12/28/22 07:30 Nasal Cannula 12/28/22 07:54 36.3 C L 73 20 160/65 H 100 Nebulizer 12/28/22 07:08 82 16 97 Nasal Cannula O2 Flow Rate 12/28/22 16:39 2 12/28/22 15:34 12/28/22 12:46 2 12/28/22 11:29 2 12/28/22 07:30 12/28/22 07:30 2 12/28/22 07:54 12/28/22 07:08 2 Laboratory Results 12/28/22 12/28/22 12/27/22 Range/Units 07:10 07:10 23:42 WBC 6.49 (4.8-10.8) K/ul RBC 3.89 L (4.20-5.40) M/uL Hgb 11.5 L (12.0-16.0) g/dl Hct 35.5 L (37.0-47.0) % MCV 91.3 (80.0-100.0) fL MCH 29.6 (25.0-34.0) pg MCHC 32.4 (32.0-36.0) g/dL RDW Std Deviation 49.8 H (36.4-46.3) fL RDW Coeff of [place] 14.9 H (11.5-14.5) % Plt Count 196 (130-400) K/uL MPV 10.2 (9.4-12.4) fL Immature Gran % (Auto) 0.8 % Neut % (Auto) 83.2 % Lymph % (Auto) 11.9 % [place] % (Auto) 3.9 % Eos % (Auto) 0.0 % Baso % (Auto) 0.2 % Neut # (Auto) 5.41 (1.40-6.50) K/uL Lymph # (Auto) 0.77 L (1.2-3.4) K/uL [place] # (Auto) 0.25 (0.11-0.59) K/uL Eos # (Auto) 0.00 (0-0.50) K/uL Baso # (Auto) 0.01 (0-0.2) K/uL Immature Gran # (Auto) 0.05 (0.01-0.20) K/uL ABG pH 7.42 (7.35-7.45) ABG pCO2 37 (35-46) mmHg ABG pO2 102 H (80-95) mmHg ABG HCO3 24 (19-24) mmol/L ABG O2 Saturation 99.5 H (90-95) % ABG Base Excess -0.2 (-9-1.8) mEq/L Robin Test Pos (Pos) Oxygen Given 1 L Sodium 139 (136-145) mmol/L Potassium 4.0 (3.5-5.1) mmol/L Chloride 102 (98-107) mmol/L Carbon Dioxide 30 (21-32) mmol/L Anion Gap 7 (3-11) BUN 22 (6-23) mg/dl Creatinine 0.79 (0.6-1.2) mg/dl Est Cr Clr Drug Dosing 51.6 ml/min Est GFR ( Amer) 78.0 ml/min Est GFR (Non-Af Amer) 67.3 ml/min BUN/Creatinine Ratio 27.8 H (10-20) Glucose 122 H (70-99(Fasting)) mg/dl Calcium 9.8 (8.6-10.3) mg/dl Medications Administered Current Inpatient Medications Acetaminophen (Acetaminophen 325 Mg Tab) 650 mg PO Q4H PRN PRN Reason: Pain or Fever Stop: 01/26/23 23:02 Aspirin (Aspirin 81 Mg Ectab) 81 mg PO DAILY [facility] Stop: 01/27/23 08:59 Last Admin: 12/28/22 08:45 Dose: 81 mg Atorvastatin Calcium (Atorvastatin 40 Mg Tab) 40 mg PO QAM [facility] Stop: 01/27/23 08:59 Last Admin: 12/28/22 08:45 Dose: 40 mg Azithromycin (Azithromycin 250 Mg Tab) 250 mg PO QAM [facility] Stop: 01/01/23 08:59 Last Admin: 12/28/22 10:38 Dose: 250 mg Benzonatate (Benzonatate 100 Mg Capsule) 100 mg PO TID PRN PRN Reason: Cough Stop: 01/27/23 00:11 Buspirone HCl (Buspirone 5 Mg Tab) 5 mg PO [facility] Stop: 01/26/23 23:02 Last Admin: 12/28/22 08:45 Dose: 5 mg Carvedilol (Carvedilol 3.125 Mg Tab) 3.125 mg PO BID [facility] Stop: 01/26/23 23:02 Last Admin: 12/28/22 08:45 Dose: 3.125 mg Enoxaparin Sodium (Enoxaparin Inj 40 Mg/0.4 Ml Syr) [facility]: 01/27/23 08:59 Last Admin: 12/28/22 10:38 Dose: 40 mg Famotidine (Famotidine 20 Mg Tab) 20 mg PO [facility] Stop: 01/26/23 23:02 Last Admin: 12/28/22 08:44 Dose: 20 mg Fluticasone Furoate (Fluticasone Furoate 100mcg 14 Puffs/Inhaler) 1 puffs INH DAILY [facility] Stop: 01/27/23 08:59 Last Admin: 12/28/22 08:46 Dose: 1 puffs Furosemide (Furosemide 40 Mg Tab) [facility] Stop: 01/26/23 23:02 Last Admin: 12/28/22 08:45 Dose: 40 mg Guaifenesin (Guaifenesin 600 Mg Tabcr) 1,200 mg PO Q12 [facility] Stop: 01/27/23 08:59 Last Admin: 12/28/22 10:38 Dose: 1,200 mg Hydralazine HCl (Hydralazine Hcl 20 Mg/Ml Vial) 5 mg IV Q6H PRN PRN Reason: systolic bp > 160 Stop: 01/26/23 23:02 Methylprednisolone 40 mg/ (Syringe) 0.64 mls @ 1.5 mls/min IV Q8H [facility] Stop: 01/26/23 23:14 Last Admin: 12/28/22 14:35 Dose: 1.5 mls/min Ipratropium [place] (Ipratropium [place] Neb Soln 0.02% 2.5 Ml Vial) 0.5 mg INH Q6R [facility] Stop: 01/27/23 00:59 Last Admin: 12/28/22 12:46 Dose: 0.5 mg Levalbuterol HCl (Levalbuterol 1.25 Mg/3 Ml Neb) 1.25 mg NEB Q6R [facility] Stop: 01/27/23 00:59 Last Admin: 12/28/22 12:46 Dose: 1.25 mg Lisinopril (Lisinopril 5 Mg Tab) 5 mg PO QAM [facility] Stop: 01/27/23 08:59 Last Admin: 12/28/22 08:45 Dose: 5 mg Lorazepam (Lorazepam 0.5 Mg Tab) 0.5 mg PO BID PRN PRN Reason: anxiety Stop: 01/26/23 22:53 Magnesium Oxide (Magnesium Oxide 400 Mg Tab) 400 mg PO HS [facility] Stop: 01/26/23 23:02 Last Admin: 12/27/22 23:28 Dose: 400 mg Menthol (Cough Drop (Sugar Free) Gab[place] 24 [place]/1 Box) 1 gabino BUCCAL NOW PRN PRN Reason: Sore Throat Stop: 01/27/23 00:12 Multivitamins/Minerals (Cerovite Adv Formula Tab) 1 tab PO DAILY [facility] Stop: 01/27/23 08:59 Last Admin: 12/28/22 08:45 Dose: 1 tab Pantoprazole Sodium (Pantoprazole 40 Mg Tab) 40 mg PO BID [facility] Stop: 01/26/23 23:02 Last Admin: 12/28/22 08:45 Dose: 40 mg Sertraline HCl (Sertraline Hcl 100 Mg Tablet) 100 mg PO QAM [facility] Stop: 01/27/23 08:59 Last Admin: 12/28/22 08:45 Dose: 100 mg Sodium Chloride (Sodium Chlor 7% 4 Ml Neb) 4 ml NEB BIDR PRN PRN Reason: Sputum induction Stop: 01/26/23 23:02 Spironolactone (Spironolactone 12.5 Mg Tab) 12.5 mg PO DAILY [facility] Stop: 01/26/23 23:02 Last Admin: 12/28/22 08:45 Dose: 12.5 mg Tramadol HCl (Tramadol Hcl 50 Mg Tablet) 50 mg PO DAILY PRN PRN Reason: Pain Stop: 01/26/23 23:02 Umeclidinium/Vilanterol (Umeclidinium/Vilanterol 62.5/25mcg 7 Puffs/Inhaler) 1 puffs INH DAILY [facility] Stop: 01/27/23 08:59 Last Admin: 12/28/22 08:46 Dose: 1 puffs
[2022-12-28] MEDS: MAGNESIUM OXIDE 400 MG TAB PO SCH (20:53)
[2022-12-29] MEDS: LEVALBUTEROL 1.25 MG/3 ML NEB NEB SCH ×4 (00:40→19:08)
[2022-12-29] MEDS: IPRATROPIUM BROMIDE NEB SOLN 0.02% 2.5 ML VIAL INH SCH ×4 (00:40→19:09)
--- NOTE | 2022-12-29 08:10 | Hospitalist Progress Note ---
Date of Service December 29, 2022 Assessment & Plan (1) COPD exacerbation: Plan: COPD EXACERBATION LIKELY SECONDARY TO ACUTE BRONCHITIS RULE OUT PNEUMONIA Also has history of obstructive sleep apnea, pulmonary hypertension, diaphragmatic paralysis Follows with Dr. Ivan as outpatient CT chest ordered - 1. 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 2. Flattening of the diaphragms with increased AP diameter of the chest, correlate for COPD. No pleural effusion or pneumothorax. 3. Moderate hiatal hernia. ABG ordered Blood culture - negat. for 24 hrs Sputum culture- pending Ceftriaxone plus doxycycline started on admission Solu-Medrol 40 mg IV every 12 hours Levalbuterol/ipratropium every 6 hours Hypertonic saline every 12 hours Mucinex, incentive spirometry, flutter valve CPAP at night Consulted pulmonary service - continue aggressive bronchodilator. The patient is currently receiving Anoro and Flovent which should be adequate. She is on methylprednisolone - we can transition to oral prednisone. She is receiving Rocephin and doxycycline but I do not see evidence of pneumonia so we will de- escalate down to oral azithromycin. Increase Mucinex to 1200 mg daily. CONGESTIVE HEART FAILURE, DIASTOLIC TYPE, CHRONIC Not in exacerbation Continue usual Lasix per spironolactone, carvedilol, aspirin, Lipitor CKD STAGE III Stable GERD/HERNANDEZ ESOPHAGUS Continue Protonix and famotidine DEPRESSION, ANXIETY Continue buspirone, sertraline DVT prophylaxis Lovenox subcu daily CODE STATUS DNR confirmed by patient and daughter at the bedside DISPOSITION Lives with alone at home PT and OT evaluation when respiratory status is stable Admission and Anticipated Discharge Date Admission Date: December 27, 2022 Subjective Pt seen in follow up of shortness of breath, copd exacerbation Currently sitting up in bed, in NAD Feeling better now, says she is not coughing as frequently reports + sputum production no chest pain, no abd. pain, no fever, chills. Pt's daughter present at the bedside and updated. Pt confused overnight. Review of Systems Review of Systems: All systems reviewed & are unremarkable except as noted in Subjective Physical Exam Physical Exam: General- oriented x 3, not in distress, speaks in sentences with no effort or accessory muscle use Head- atraumatic Eyes- PERRL, EOMI, anicteric ENT- oropharynx clear Neck- supple, no JVD, no adenopathy Lungs- somewhat diminished breath sounds, no wheezing, no crackles Heart- normal rate, regular rhythm; no murmur Abdomen- normal bowel sounds, nondistended, soft, nontender Extremities- no LE edema, no calf tenderness; peripheral pulses intact, moves extremities Neuro- alert, oriented x 3; speech fluent, no facial asymmetry, moves extremities Skin- warm & dry Results & Data Results & Data Vital Signs (Past 12 Hours) Vital Signs Temp Pulse Pulse Resp BP Pulse Ox O2 Del Method 12/29/22 08:06 36.3 C L 75 20 148/53 H 96 Nasal Cannula 12/29/22 07:08 69 17 Nasal Cannula 12/29/22 03:35 36.3 C L 76 20 179/68 H 93 Nasal Cannula 12/29/22 02:16 71 12/29/22 00:41 66 20 96 Nasal Cannula 12/28/22 23:00 36.5 C 76 16 168/73 H 95 Nasal Cannula 12/28/22 22:20 50 L 21 95 O2 Flow Rate 12/29/22 08:06 2 12/29/22 07:08 2 12/29/22 03:35 2 12/29/22 02:16 12/29/22 00:41 2 12/28/22 23:00 2 12/28/22 22:20 3 Medications Administered Current Inpatient Medications Acetaminophen (Acetaminophen 325 Mg Tab) 650 mg PO Q4H PRN PRN Reason: Pain or Fever Stop: 01/26/23 23:02 Aspirin (Aspirin 81 Mg Ectab) 81 mg PO DAILY [facility] Stop: 01/27/23 08:59 Last Admin: 12/28/22 08:45 Dose: 81 mg Atorvastatin Calcium (Atorvastatin 40 Mg Tab) 40 mg PO QAM [facility] Stop: 01/27/23 08:59 Last Admin: 12/28/22 08:45 Dose: 40 mg Azithromycin ([facility] 250 Mg Tab) [facility]: 01/01/23 08:59 Last Admin: 12/28/22 10:38 Dose: 250 mg Benzonatate (Benzonatate 100 Mg Capsule) 100 mg PO TID PRN PRN Reason: Cough Stop: 01/27/23 00:11 Buspirone HCl (Buspirone 5 Mg Tab) 5 mg PO [facility] Stop: 01/26/23 23:02 Last Admin: 12/28/22 20:53 Dose: 5 mg Carvedilol (Carvedilol 3.125 Mg Tab) 3.125 mg PO BID [facility] Stop: 01/26/23 23:02 Last Admin: 12/28/22 20:53 Dose: 3.125 mg Enoxaparin Sodium (Enoxaparin Inj 40 Mg/0.4 Ml Syr) 40 mg SQ QAM [facility] Stop: 01/27/23 08:59 Last Admin: 12/28/22 10:38 Dose: 40 mg Famotidine (Famotidine 20 Mg Tab) 20 mg PO [facility] Stop: 01/26/23 23:02 Last Admin: 12/28/22 20:54 Dose: 20 mg Fluticasone Furoate (Fluticasone Furoate 100mcg 14 Puffs/Inhaler) 1 puffs INH DAILY [facility] Stop: 01/27/23 08:59 Last Admin: 12/28/22 08:46 Dose: 1 puffs Furosemide (Furosemide 40 Mg Tab) 40 mg PO QAM [facility] Stop: 01/26/23 23:02 Last Admin: 12/28/22 08:45 Dose: 40 mg Guaifenesin (Guaifenesin 600 Mg Tabcr) 1,200 mg PO Q12 [facility] Stop: 01/27/23 08:59 Last Admin: 12/28/22 20:53 Dose: 1,200 mg Hydralazine HCl (Hydralazine Hcl 20 Mg/Ml Vial) 5 mg IV Q6H PRN PRN Reason: systolic bp > 160 Stop: 01/26/23 23:02 Methylprednisolone 40 mg/ (Syringe) 0.64 mls @ 1.5 mls/min IV Q8H [facility] Stop: 01/26/23 23:14 Last Admin: 12/28/22 22:50 Dose: 1.5 mls/min Ipratropium [place] (Ipratropium [place] Neb Soln 0.02% 2.5 Ml Vial) 0.5 mg INH Q6R [facility] Stop: 01/27/23 00:59 Last Admin: 12/29/22 07:08 Dose: 0.5 mg Levalbuterol HCl (Levalbuterol 1.25 Mg/3 Ml Neb) 1.25 mg NEB Q6R [facility] Stop: 01/27/23 00:59 Last Admin: 12/29/22 07:08 Dose: 1.25 mg Lisinopril (Lisinopril 5 Mg Tab) 5 mg PO QAM [facility] Stop: 01/27/23 08:59 Last Admin: 12/28/22 08:45 Dose: 5 mg Lorazepam (Lorazepam 0.5 Mg Tab) 0.5 mg PO BID PRN PRN Reason: anxiety Stop: 01/26/23 22:53 Magnesium Oxide (Magnesium Oxide 400 Mg Tab) 400 mg PO HS [facility] Stop: 01/26/23 23:02 Last Admin: 12/28/22 20:53 Dose: 400 mg Menthol (Cough Drop (Sugar Free) [place] 24 [place]/1 Box) 1 gabino BUCCAL NOW PRN PRN Reason: Sore Throat Stop: 01/27/23 00:12 Multivitamins/Minerals (Cerovite Adv Formula Tab) 1 tab PO DAILY [facility] Stop: 01/27/23 08:59 Last Admin: 12/28/22 08:45 Dose: 1 tab Pantoprazole Sodium (Pantoprazole 40 Mg Tab) 40 mg PO BID [facility] Stop: 01/26/23 23:02 Last Admin: 12/28/22 20:53 Dose: 40 mg Sertraline HCl (Sertraline Hcl 100 Mg Tablet) 100 mg PO QAM [facility] Stop: 01/27/23 08:59 Last Admin: 12/28/22 08:45 Dose: 100 mg Sodium Chloride (Sodium Chlor 7% 4 Ml Neb) 4 ml NEB BIDR PRN PRN Reason: Sputum induction Stop: 01/26/23 23:02 Spironolactone (Spironolactone 12.5 Mg Tab) 12.5 mg PO DAILY [facility] Stop: 01/26/23 23:02 Last Admin: 12/28/22 08:45 Dose: 12.5 mg Tramadol HCl (Tramadol Hcl 50 Mg Tablet) 50 mg PO DAILY PRN PRN Reason: Pain Stop: 01/26/23 23:02 Umeclidinium/Vilanterol (Umeclidinium/Vilanterol 62.5/25mcg 7 Puffs/Inhaler) 1 puffs INH DAILY [facility] Stop: 01/27/23 08:59 Last Admin: 12/28/22 08:46 Dose: 1 puffs
[2022-12-29 08:40] LABS: Hematocrit (blood only) 36.4 % (37.0-47.0); Hemoglobin 12.3 g/dl (12.0-16.0); Mean Corpuscular Hemoglobin 30.1 pg (25.0-34.0); Mean Corpuscular Hgb Conc 33.8 g/dL (32.0-36.0); Mean Platelet Volume 10.1 fL (9.4-12.4); Platelet Count 219 K/uL (130-400); RDW Coefficient of Variation 14.7 % (11.5-14.5); RDW Standard Deviation 47.7 fL (36.4-46.3); Red Blood Count 4.09 M/uL (4.20-5.40); White Blood Count 10.85 K/ul (4.8-10.8)
[2022-12-29] MEDS: methylPREDNISolone 40 MG in SYRINGE 0 ML IV SCH (08:48)
[2022-12-29] MEDS: UMECLIDINIUM/VILANTEROL 62.5/25MCG 7 PUFFS/INHALER INH SCH (08:53)
[2022-12-29] MEDS: FLUTICASONE FUROATE 100MCG 14 PUFFS/INHALER INH SCH (08:54)
[2022-12-29] MEDS: carvediloL 3.125 MG TAB PO SCH ×2 (08:54→20:27)
[2022-12-29 08:55] LABS: BUN Creatinine Ratio 35.3 (10-20); Calcium 9.9 mg/dl (8.6-10.3); Est GFR (African American) 71.4 ml/min; Est GFR (Non-African American) 61.6 ml/min; Magnesium 2.1 mg/dl (1.7-2.4); Potassium 3.8 mmol/L (3.5-5.1)
[2022-12-29] MEDS: ASPIRIN 81 MG ECTAB PO SCH (08:56)
[2022-12-29] MEDS: AZITHROMYCIN 250 MG TAB PO SCH (08:57)
[2022-12-29] MEDS: busPIRone 5 MG TAB PO SCH ×2 (08:57→20:27)
[2022-12-29] MEDS: ATORVASTATIN 40 MG TAB PO SCH (08:57)
[2022-12-29] MEDS: FAMOTIDINE 20 MG TAB PO SCH ×2 (08:58→20:27)
[2022-12-29] MEDS: FUROSEMIDE 40 MG TAB PO SCH (08:58)
[2022-12-29] MEDS: guaiFENesin 600 MG TABCR PO SCH ×2 (09:00→20:27)
[2022-12-29] MEDS: lisinopril 5 MG TAB PO SCH (09:01)
[2022-12-29] MEDS: PANTOprazole 40 MG TAB PO SCH ×2 (09:02→20:27)
[2022-12-29] MEDS: CEROVITE ADV FORMULA TAB PO SCH (09:02)
[2022-12-29] MEDS: SERTRALINE HCL 100 MG TABLET PO SCH (09:03)
[2022-12-29] MEDS: SPIRONOLACTONE 12.5 MG TAB PO SCH (09:03)
--- NOTE | 2022-12-29 10:04 | Pulmonology Progress Note ---
Date of Service December 29, 2022 Assessment & Plan (1) Restrictive lung disease: (2) HARMEET (obstructive sleep apnea): (3) Obesity: (4) Exertional shortness of breath: Plan Impression: 87-year-old female admitted with shortness of breath after viral infection. Her prior PFTs in July of this year showed an FEV1 and FVC of 65 and 68% predicted respectively with a 14% improvement in the FEV1. Diffusion capacity was 71% predicted and total lung capacity of 74% predicted. She does have some bronchitic complaints. She has underlying sleep disordered breathing. Not sure that COPD accounts for all of her somatic issues at this point in time. Recommendations: 1. Asthma/COPD exacerbation: Would continue aggressive bronchodilator. The patient is currently receiving Anoro and Flovent which should be adequate. She is without wheezes on exam. Would transition to PO prednisone at this point. Continue Azithromycin and Mucinex. 2. Sleep disordered breathing: Continue CPAP nightly. The patient can bring her machine in from home if needed. 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 3. PT OT evaluations. Out of bed to chair as much as possible. 4. Her echocardiogram in August of this year showed moderate aortic insufficiency with moderate mitral regurgitation and grade 1 diastolic dysfunction. Query whether or not her valvular heart disease and cardiac issues could potentially be contributing to her shortness of breath and respiratory issues. She appears to be established with the [facility] cardiology group. Thanks for the opportunity participating care of this patient. Feel free to contact us with questions or concerns. We will follow until her respiratory status is stabilized. Admission and Anticipated Discharge Date Admission Date: December 27, 2022 Supervising Physician Co-Signing Physician Notes Patient seen and examined. Discussed with patient and daughter at bedside. Agree with assessment plan as noted by BOOM. The patient continues to complain of cough. It may be related to sinuses as she is having significant postnasal drip. Her lungs are actually clear and the respiratory issues that she is having appear to be centered around her vocal cords. Her biggest issue is delirium which may be exacerbated by abnormalities in her sleep-wake cycle as well as steroids. Agree with steroids transitioning to oral but I suspect she only needs another 2 to 3 days. She may need treatment for upper airway cough syndrome with chlorpheniramine, Sudafed, saline sinus irrigation, and Flonase. This can be addressed in the outpatient setting. She is established with Dr. Ivan. She appears stable from a respiratory standpoint. Unclear what her ultimate disposition is that she lives at home independently. Pulmonary will sign off at this point time. Feel free to contact us with additional questions or concerns Subjective Patient seen evaluated bedside today. She states she is still having trouble breathing. She is unable to explain the symptoms she experienced otherwise. She has persistent cough. She reports she is bringing up thick sputum. Review of Systems Review of Systems: Please refer to admission H&P. No additions or deletions Physical Exam Physical Exam: VITAL SIGNS - Vital signs and nursing notes were reviewed. GENERAL - 87-year-old female appearing her stated age who is in no acute distress. Communicates well with provider and answers questions appropriately. LUNGS -normal respiratory effort. No wheezes, rales, or rhonchi appreciated. CARDIAC - RRR with S1/S2. No murmur, rubs, or gallops appreciated. PSYCH - A&Ox3. Results & Data Results & Data Vital Signs (Past 12 Hours) Vital Signs Temp Pulse Pulse Resp BP Pulse Ox O2 Del Method 12/29/22 08:06 36.3 C L 75 20 148/53 H 96 Nasal Cannula 12/29/22 07:08 69 17 Nasal Cannula 12/29/22 03:35 36.3 C L 76 20 179/68 H 93 Nasal Cannula 12/29/22 02:16 71 12/29/22 00:41 66 20 96 Nasal Cannula 12/28/22 23:00 36.5 C 76 16 168/73 H 95 Nasal Cannula 12/28/22 22:20 50 L 21 95 O2 Flow Rate 12/29/22 08:06 2 12/29/22 07:08 2 12/29/22 03:35 2 12/29/22 02:16 12/29/22 00:41 2 12/28/22 23:00 2 12/28/22 22:20 3 PG Care Time/CCT Total # of Minutes Spent Total Time Spent with Patient: Total time spent is greater than 50% in coordination of care (as documented) at patient's floor/unit and/or counseling patient: Coding Level of Care Code 12686 SUB INP/OBS CARE 2/35MIN Diagnoses Restrictive lung disease J98.4 HARMEET (obstructive sleep apnea) G47.33 Obesity E66.9 Exertional shortness of breath R06.02
[2022-12-29] MEDS: ENOXAPARIN INJ 40 MG/0.4 ML SYR SQ SCH (10:46)
[2022-12-29] MEDS: MAGNESIUM OXIDE 400 MG TAB PO SCH (20:27)
[2022-12-29] MEDS: predniSONE 20 MG TAB PO SCH (20:27)
[2022-12-30] MEDS: IPRATROPIUM BROMIDE NEB SOLN 0.02% 2.5 ML VIAL INH SCH ×3 (07:00→13:28)
[2022-12-30] MEDS: LEVALBUTEROL 1.25 MG/3 ML NEB NEB SCH ×3 (07:00→13:28)
[2022-12-30 07:07] LABS: Hematocrit (blood only) 36.9 % (37.0-47.0); Hemoglobin 12.1 g/dl (12.0-16.0); Mean Corpuscular Hemoglobin 29.6 pg (25.0-34.0); Mean Corpuscular Hgb Conc 32.8 g/dL (32.0-36.0); Mean Corpuscular Volume 90.2 fL (80.0-100.0); Mean Platelet Volume 9.9 fL (9.4-12.4); Platelet Count 205 K/uL (130-400); RDW Coefficient of Variation 15.1 % (11.5-14.5); RDW Standard Deviation 50.1 fL (36.4-46.3); Red Blood Count 4.09 M/uL (4.20-5.40); White Blood Count 9.72 K/ul (4.8-10.8)
[2022-12-30 08:09] LABS: Calcium 9.6 mg/dl (8.6-10.3); Magnesium 2.3 mg/dl (1.7-2.4); Potassium 4.3 mmol/L (3.5-5.1)
[2022-12-30 08:15] LABS: BUN Creatinine Ratio 38.6 (10-20); Creatinine Clr Calc Pharmacy 39.2 ml/min; Phosphorus 3.9 mg/dl (2.5-4.9)
[2022-12-30] MEDS: ASPIRIN 81 MG ECTAB PO SCH (08:30)
[2022-12-30] MEDS: ATORVASTATIN 40 MG TAB PO SCH (08:31)
[2022-12-30] MEDS: AZITHROMYCIN 250 MG TAB PO SCH (08:32)
[2022-12-30] MEDS: PANTOprazole 40 MG TAB PO SCH (08:32)
[2022-12-30] MEDS: busPIRone 5 MG TAB PO SCH (08:33)
[2022-12-30] MEDS: predniSONE 20 MG TAB PO SCH (08:34)
[2022-12-30] MEDS: carvediloL 3.125 MG TAB PO SCH (08:34)
[2022-12-30] MEDS: FUROSEMIDE 40 MG TAB PO SCH (08:36)
[2022-12-30] MEDS: FAMOTIDINE 20 MG TAB PO SCH (08:36)
[2022-12-30] MEDS: CEROVITE ADV FORMULA TAB PO SCH (08:37)
[2022-12-30] MEDS: lisinopril 5 MG TAB PO SCH (08:37)
[2022-12-30] MEDS: SERTRALINE HCL 100 MG TABLET PO SCH (08:38)
[2022-12-30] MEDS: SPIRONOLACTONE 12.5 MG TAB PO SCH (08:39)
[2022-12-30] MEDS: guaiFENesin 600 MG TABCR PO SCH (08:39)
[2022-12-30] MEDS: FLUTICASONE FUROATE 100MCG 14 PUFFS/INHALER INH SCH (08:41)
[2022-12-30] MEDS: UMECLIDINIUM/VILANTEROL 62.5/25MCG 7 PUFFS/INHALER INH SCH (08:42)
[2022-12-30] MEDS ORDERED: FLUTICASONE PROPIONATE NA SPR 16 GM BTL SCH (09:30)
[2022-12-30] MEDS ORDERED: SODIUM CHLORIDE 0.65% NA SOLN 45 ML (OCEAN) PRN (09:35)
--- NOTE | 2022-12-30 09:38 | Hospitalist Progress Note ---
Date of Service December 30, 2022 Assessment & Plan (1) COPD exacerbation: Plan: COPD EXACERBATION LIKELY SECONDARY TO ACUTE BRONCHITIS RULE OUT PNEUMONIA Also has history of obstructive sleep apnea, pulmonary hypertension, diaphragmatic paralysis Follows with Dr. Ivan as outpatient CT chest ordered - 1. 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 2. Flattening of the diaphragms with increased AP diameter of the chest, correlate for COPD. No pleural effusion or pneumothorax. 3. Moderate hiatal hernia. ABG ordered Blood culture - negat. for 48 hrs Sputum culture- normal mike Ceftriaxone plus doxycycline started on admission Solu-Medrol 40 mg IV every 12 hours initially Levalbuterol/ipratropium every 6 hours Hypertonic saline every 12 hours Mucinex, incentive spirometry, flutter valve CPAP at night Consulted pulmonary service - continue aggressive bronchodilator. The patient is currently receiving Anoro and Flovent which should be adequate. She is on methylprednisolone - we can transition to oral prednisone. She is receiving Rocephin and doxycycline but I do not see evidence of pneumonia so we will de- escalate down to oral azithromycin. Increase Mucinex to 1200 mg daily. 12/30 pulmonary medicine recommends to continue oral prednisone for few more days and meds for sinus congestion - started pt on nasal sprays, saline and flonase Pt is feeling much better today and will be dc'ed home w/ HH. Outpt follow up arranged w/ PCP. Pt also follows w/ pulm. Dr. Ivan as outpt. CONGESTIVE HEART FAILURE, DIASTOLIC TYPE, CHRONIC Not in exacerbation Continue usual Lasix per spironolactone, carvedilol, aspirin, Lipitor CKD STAGE III Stable GERD/HERNANDEZ ESOPHAGUS Continue Protonix and famotidine DEPRESSION, ANXIETY Continue buspirone, sertraline DVT prophylaxis Lovenox subcu daily CODE STATUS DNR confirmed by patient and daughter at the bedside DISPOSITION Lives with alone at home PT and OT evaluation when respiratory status is stable Admission and Anticipated Discharge Date Admission Date: December 27, 2022 Subjective Pt seen in follow up of shortness of breath, copd exacerbation Currently sitting up in bed, in NAD Reports feeling much better this AM, she is not confused and says she slept well. reports + sputum production usually in the morning no chest pain, no abd. pain, no fever, chills. Discussed recommendations from pulmonary medicine and started on nasal sprays. Pt would like to go home now with outpt follow ups. Discussed w/ RN as well and CM - to obtain HH services. Review of Systems Review of Systems: All systems reviewed & are unremarkable except as noted in Subjective Physical Exam Physical Exam: General- oriented x 3, not in distress, speaks in sentences with no effort or accessory muscle use Head- atraumatic Eyes- PERRL, EOMI, anicteric ENT- oropharynx clear Neck- supple, no JVD, no adenopathy Lungs- somewhat diminished breath sounds, no wheezing, no crackles Heart- normal rate, regular rhythm; no murmur Abdomen- normal bowel sounds, nondistended, soft, nontender Extremities- no LE edema, no calf tenderness; peripheral pulses intact, moves extremities Neuro- alert, oriented x 3; speech fluent, no facial asymmetry, moves extremities Skin- warm & dry Results & Data Results & Data Vital Signs (Past 12 Hours) Vital Signs Temp Pulse Pulse Resp BP Pulse Ox O2 Del Method 12/30/22 06:53 36.2 C L 82 18 168/78 H 96 Room Air, CPAP 12/30/22 07:00 73 16 96 CPAP 12/30/22 03:10 36.3 C L 61 18 155/74 H 97 CPAP 12/30/22 00:00 61 12/29/22 22:26 36.7 C 69 20 133/76 96 CPAP O2 Flow Rate 12/30/22 06:53 12/30/22 07:00 2 12/30/22 03:10 12/30/22 00:00 12/29/22 22:26 Laboratory Results 12/30/22 12/30/22 Range/Units 06:46 06:46 WBC 9.72 (4.8-10.8) K/ul RBC 4.09 L (4.20-5.40) M/uL Hgb 12.1 (12.0-16.0) g/dl Hct 36.9 L (37.0-47.0) % MCV 90.2 (80.0-100.0) fL MCH 29.6 (25.0-34.0) pg MCHC 32.8 (32.0-36.0) g/dL RDW Std Deviation 50.1 H (36.4-46.3) fL RDW Coeff of [place] 15.1 H (11.5-14.5) % Plt Count 205 (130-400) K/uL MPV 9.9 (9.4-12.4) fL Sodium 138 (136-145) mmol/L Potassium 4.3 (3.5-5.1) mmol/L Chloride 103 (98-107) mmol/L Carbon Dioxide 29 (21-32) mmol/L Anion Gap 6 (3-11) BUN 39 H (6-23) mg/dl Creatinine 1.01 (0.6-1.2) mg/dl Est Cr Clr Drug Dosing 39.2 ml/min Est GFR ( Amer) 58.0 ml/min Est GFR (Non-Af Amer) 50.0 ml/min BUN/Creatinine Ratio 38.6 H (10-20) Glucose 116 H (70-99(Fasting)) mg/dl Calcium 9.6 (8.6-10.3) mg/dl Phosphorus 3.9 (2.5-4.9) mg/dl Magnesium 2.3 (1.7-2.4) mg/dl Medications Administered Current Inpatient Medications Acetaminophen (Acetaminophen 325 Mg Tab) 650 mg PO Q4H PRN PRN Reason: Pain or Fever Stop: 01/26/23 23:02 Aspirin (Aspirin 81 Mg Ectab) 81 mg PO DAILY [facility] Stop: 01/27/23 08:59 Last Admin: 12/30/22 08:30 Dose: 81 mg Atorvastatin Calcium (Atorvastatin 40 Mg Tab) 40 mg PO QAM [facility] Stop: 01/27/23 08:59 Last Admin: 12/30/22 08:31 Dose: 40 mg Azithromycin (Azithromycin 250 Mg Tab) 250 mg PO [facility] Stop: 01/01/23 08:59 Last Admin: 12/30/22 08:32 Dose: 250 mg Benzonatate (Benzonatate 100 Mg Capsule) 100 mg PO TID PRN PRN Reason: Cough Stop: 01/27/23 00:11 Buspirone HCl (Buspirone 5 Mg Tab) 5 mg PO [facility] Stop: 01/26/23 23:02 Last Admin: 12/30/22 08:33 Dose: 5 mg Carvedilol (Carvedilol 3.125 Mg Tab) 3.125 mg PO BID [facility] Stop: 01/26/23 23:02 Last Admin: 12/30/22 08:34 Dose: 3.125 mg Enoxaparin Sodium (Enoxaparin Inj 40 Mg/0.4 Ml Syr) 40 mg SQ QAM [facility] Stop: 01/27/23 08:59 Last Admin: 12/29/22 10:46 Dose: Not Given Famotidine (Famotidine 20 Mg Tab) 20 mg PO AMHS [facility] Stop: 01/26/23 23:02 Last Admin: 12/30/22 08:36 Dose: 20 mg Fluticasone Furoate (Fluticasone Furoate 100mcg 14 Puffs/Inhaler) 1 puffs INH DAILY [facility] Stop: 01/27/23 08:59 Last Admin: 12/30/22 08:41 Dose: 1 puffs Fluticasone Propionate (Fluticasone Propionate Na Spr 16 Gm Btl) 1 sprays NA BID [facility] Stop: 01/29/23 09:29 Furosemide (Furosemide 40 Mg Tab) 40 mg PO QAM [facility] Stop: 01/26/23 23:02 Last Admin: 12/30/22 08:36 Dose: 40 mg Guaifenesin (Guaifenesin 600 Mg Tabcr) 1,200 mg PO Q12 [facility] Stop: 01/27/23 08:59 Last Admin: 12/30/22 08:39 Dose: 1,200 mg Hydralazine HCl (Hydralazine Hcl 20 Mg/Ml Vial) 5 mg IV Q6H PRN PRN Reason: systolic bp > 160 Stop: 01/26/23 23:02 Ipratropium [place] (Ipratropium [place] Neb Soln 0.02% 2.5 Ml Vial) 0.5 mg INH Q6R [facility] Stop: 01/27/23 00:59 Last Admin: 12/30/22 07:00 Dose: 0.5 mg Levalbuterol HCl (Levalbuterol 1.25 Mg/3 Ml Neb) 1.25 mg NEB Q6R [facility] Stop: 01/27/23 00:59 Last Admin: 12/30/22 07:00 Dose: 1.25 mg Lisinopril (Lisinopril 5 Mg Tab) 5 mg PO QAM [facility] Stop: 01/27/23 08:59 Last Admin: 12/30/22 08:37 Dose: 5 mg Lorazepam (Lorazepam 0.5 Mg Tab) 0.5 mg PO BID PRN PRN Reason: anxiety Stop: 01/26/23 22:53 Magnesium Oxide (Magnesium Oxide 400 Mg Tab) 400 mg PO HS [facility] Stop: 01/26/23 23:02 Last Admin: 12/29/22 20:27 Dose: 400 mg Menthol (Cough Drop (Sugar Free) Gabino 24 Gabino/1 Box) 1 gabino BUCCAL NOW PRN PRN Reason: Sore Throat Stop: 01/27/23 00:12 Multivitamins/Minerals (Cerovite Adv Formula Tab) 1 tab PO DAILY [facility] Stop: 01/27/23 08:59 Last Admin: 12/30/22 08:37 Dose: 1 tab Pantoprazole Sodium (Pantoprazole 40 Mg Tab) 40 mg PO BID [facility] Stop: 01/26/23 23:02 Last Admin: 12/30/22 08:32 Dose: 40 mg Prednisone (Prednisone 20 Mg Tab) 20 mg PO BID [facility] Stop: 01/03/23 20:59 Last Admin: 12/30/22 08:34 Dose: 20 mg Sertraline HCl (Sertraline Hcl 100 Mg Tablet) 100 mg PO QAM [facility] Stop: 01/27/23 08:59 Last Admin: 12/30/22 08:38 Dose: 100 mg Sodium Chloride (Sodium Chlor 7% 4 Ml Neb) 4 ml NEB BIDR PRN PRN Reason: Sputum induction Stop: 01/26/23 23:02 Sodium Chloride (Sodium Chloride 0.65% Na Soln 45 Ml ([place])) 1 sprays NA QID PRN PRN Reason: congestion Stop: 01/29/23 09:34 Spironolactone (Spironolactone 12.5 Mg Tab) 12.5 mg PO DAILY [facility] Stop: 01/26/23 23:02 Last Admin: 12/30/22 08:39 Dose: 12.5 mg Tramadol HCl (Tramadol Hcl 50 Mg Tablet) 50 mg PO DAILY PRN PRN Reason: Pain Stop: 01/26/23 23:02 Umeclidinium/Vilanterol (Umeclidinium/Vilanterol 62.5/25mcg 7 Puffs/Inhaler) 1 puffs INH DAILY [facility] Stop: 01/27/23 08:59 Last Admin: 12/30/22 08:42 Dose: 1 puffs
[2022-12-30] MEDS: ENOXAPARIN INJ 40 MG/0.4 ML SYR SQ SCH (10:08)
--- NOTE | 2022-12-30 13:24 | Discharge Summary ---
Date of Service December 30, 2022 Admission HPI Per Admitting Provider 87-year-old female with history of COPD, obstructive sleep apnea, pulmonary hypertension ,CHF diastolic type, etc. Presenting with shortness of breath and cough x1 week. Patient's history is supplemented by patient's daughter at the bedside. Patient has some chronic COPD on Trelegy and as needed nebs. She also requires CPAP at bedtime for obstructive sleep apnea. Patient has been experiencing progressive shortness of breath associated with cough, nasal congestion, sore throat for the past week. She also has chest congestion but cannot seem to bring up mucus or phlegm. Subjective chills but no fever at home. She has started prednisone 20 mg p.o. daily x2 days but with no improvement. At the ER, patient noted to have expiratory wheezing, given nebulization treatment and Decadron 10 mg IV. On exam, patient was on 2 L of nasal cannula, having some effort with speaking. States she feels about the same overall Having some shortness of breath specially after walking from the bathroom. No any other symptoms. Admission Exam Per Admitting Provider General- oriented x 3, not in distress, speaks in sentences with no effort or accessory muscle use Head- atraumatic Eyes- PERRL, EOMI, anicteric ENT- oropharynx clear Neck- supple, no JVD, no adenopathy, no thyromegaly; carotids +2/2, no bruits appreciated Lungs-somewhat diminished breath sounds, faint wheezing bilaterally, no crackles Heart- normal rate, regular rhythm; no murmur, no gallop, no rub appreciated Abdomen- normal bowel sounds, nondistended, soft, nontender, no masses or hepatosplenomegaly Extremities-mild pretibial edema, no calf tenderness; peripheral pulses intact Neuro- alert, oriented x 3; CN 2-12 grossly intact; motor 5/5 bilaterally;sensation 100% on all extremities; no other gross focal neurologic deficits Skin- warm & dry Principal Diagnosis COPD exacerbation Discharge Exam General- oriented x 3, not in distress, speaks in sentences with no effort or accessory muscle use Head- atraumatic Eyes- PERRL, EOMI, anicteric ENT- oropharynx clear Neck- supple, no JVD, no adenopathy Lungs- somewhat diminished breath sounds, no wheezing, no crackles Heart- normal rate, regular rhythm; no murmur Abdomen- normal bowel sounds, nondistended, soft, nontender Extremities- no LE edema, no calf tenderness; peripheral pulses intact, moves extremities Neuro- alert, oriented x 3; speech fluent, no facial asymmetry, moves extremities Skin- warm & dry Discharge Data Allergies Allergy/AdvReac Type Severity Reaction Status Date / Time bacitracin Allergy Mild REDNESS Verified 08/05/22 10:42 neomycin Allergy Mild REDNESS Verified 08/05/22 10:42 polymyxin B Allergy Mild REDNESS Verified 08/05/22 10:42 Consultations 12/28/22 06:03 Consult Pulmonology Routine Ordered Studies 12/27/22 18:20 CT chest diagnostic wo con Routine FINDINGS: Lungs: Flattening of the diaphragms with increased AP diameter of the chest, correlate for COPD. Dependent atelectasis. Pleural space: Unremarkable. No pneumothorax. No significant effusion. Heart: Cardiomegaly. No significant pericardial effusion. No significant coronary artery calcifications. Mediastinum: Moderate hiatal hernia. Bones/joints: Sternotomy wires. Degenerative changes of the spine. No acute fracture. No dislocation. Soft tissues: Unremarkable. 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 Atherosclerotic changes of the aorta. Lymph nodes: Unremarkable. No enlarged lymph nodes. IMPRESSION: 1. 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 2. Flattening of the diaphragms with increased AP diameter of the chest, correlate for COPD. No pleural effusion or pneumothorax. 3. Moderate hiatal hernia. 12/27/22 22:54 CT Abd and Pelvis [CT abd pelvis wo con] Routine FINDINGS: Lower chest: Bibasilar atelectasis versus scarring is seen. Liver: Unremarkable. No focal lesions are seen. Gallbladder and biliary tree: Cholelithiasis is seen without evidence of cholecystitis. No intra- or extrahepatic biliary ductal dilation. Pancreas: Unremarkable, no focal lesions. Spleen: Unremarkable. Adrenals: Unremarkable. Kidneys and ureters: Unremarkable. Bladder: Unremarkable. Reproductive organs: Calcified fibroid is seen. Right adnexal cystic lesion is seen. Bowel: Diverticulosis is seen without evidence of diverticulitis. The appendix is normal. There is a moderate hiatal hernia. Lymph nodes Retroperitoneal: Unremarkable. Pelvic: Unremarkable. Mesenteric: Unremarkable. Peritoneum: Normal. Vessels: Atherosclerotic calcifications are seen. Abdominal wall: Small bilateral fat-containing inguinal hernias are seen, with a small amount of fluid in the left hernia. Bones: Degenerative changes in the visualized spine. IMPRESSION: No acute abnormalities and in particular no masses to explain weight loss. 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 No acute intracranial abnormality. Artifact from dental amalgam hardware. Parapharyngeal fat planes are symmetric and well-maintained. Patent airway. No acute inflammatory changes or fluid collections. No mass lesions identified. Surgical clips anterior to the thyroid. Outside plaque of the carotid bulbs. Unremarkable appearance of the parotid and submandibular glands. Lung apices are clear without pneumothorax. No acute fracture. Mild mucosal thickening in the paranasal sinuses. Mastoid air cells are clear. Degenerative changes of the spine. No acute fracture or destructive bone lesion. IMPRESSION: 1. No acute inflammatory changes or adenopathy. 2. No mass lesion identified within the right neck. Findings could be correlated with physical exam findings and ultrasound if there is further clinical concern. Hospital Course (1) COPD exacerbation: COPD EXACERBATION LIKELY SECONDARY TO ACUTE BRONCHITIS RULE OUT PNEUMONIA Also has history of obstructive sleep apnea, pulmonary hypertension, diaphragmatic paralysis Follows with Dr. Ivan as outpatient CT chest ordered - 1. 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 2. Flattening of the diaphragms with increased AP diameter of the chest, correlate for COPD. No pleural effusion or pneumothorax. 3. Moderate hiatal hernia. ABG ordered Blood culture - negat. for 48 hrs Sputum culture- normal mike Ceftriaxone plus doxycycline started on admission Solu-Medrol 40 mg IV every 12 hours initially Levalbuterol/ipratropium every 6 hours Hypertonic saline every 12 hours Mucinex, incentive spirometry, flutter valve CPAP at night Consulted pulmonary service - continue aggressive bronchodilator. The patient is currently receiving Anoro and Flovent which should be adequate. She is on methylprednisolone - we can transition to oral prednisone. She is receiving Rocephin and doxycycline but I do not see evidence of pneumonia so we will de- escalate down to oral azithromycin. Increase Mucinex to 1200 mg daily. 12/30 pulmonary medicine recommends to continue oral prednisone for few more days and meds for sinus congestion - started pt on nasal sprays, saline and flonase Pt is feeling much better today and will be dc'ed home w/ HH. Outpt follow up arranged w/ PCP. Pt also follows w/ pulm. Dr. Ivan as outpt. CONGESTIVE HEART FAILURE, DIASTOLIC TYPE, CHRONIC Not in exacerbation Continue usual Lasix per spironolactone, carvedilol, aspirin, Lipitor CKD STAGE III Stable GERD/HERNANDEZ ESOPHAGUS Continue Protonix and famotidine DEPRESSION, ANXIETY Continue buspirone, sertraline Total Time Total Time Spent Total Time Spent (In Minutes): 40 Discharge Plan Discharge Items Patient Disposition: Home - Home Health Services Reason For Visit: COPD EXACERBATION Discharge Diagnosis: COPD exacerbation Activity: Per Instructions section Non-emergency contact: Primary Care Provider and Lining Cementer Call non-emergency contact if: you have any medication questions and your symptoms worsen Follow-up/Referrals: Amina Alcantar DO [Primary Care Provider] - (Date & Time 01/05/2023 1:40 PM Provider Brady Hernandez MD Department Family Medicine [facility] ) Diet: Heart Healthy Fluids: 1500ml (6 cups) Diet Texture: Easy to Chew Addtl Attending Provider Instructions: Follow up with your primary care doctor and jingle writer (Dr. Ivan). The appointment with your primary care physician is scheduled for you for 01/05/2023. Finish antibiotic treatment with azithromycin and steroid (prednisone) as prescribed. Continue using guaifenesin/ mucinex and nasal sprays. Continue your other home medications as previously prescribed. Pending Studies at Discharge: No Stand-Alone Forms: My [facility], Smoking Cessation Medications and DC Order Prescriptions: New azithromycin 250 mg Tablet 250 mg PO QAM 3 Days Qty: 3 0RF prednisone 20 mg Tablet 20 mg PO BID 3 Days Qty: 6 0RF guaifenesin [Mucinex] 600 mg Tablet Extended Release 12hr 1,200 mg PO Q12 5 Days Qty: 20 0RF Continued magnesium 250 mg tablet 250 mg PO HS Trelegy Ellipta 100-62.5-25 mcg blister with device 1 inh INH DAILY Qty: 60 12RF famotidine 20 mg tablet 20 mg PO AMHS spironolactone 25 mg tablet 12.5 mg PO DAILY atorvastatin 40 mg Tablet 40 mg PO QAM buspirone 5 mg Tablet 5 mg PO AMHS sertraline 100 mg Tablet 100 mg PO QAM tramadol 50 mg Tablet 50 mg PO DAILY PRN (Reason: Pain) acetaminophen 500 mg Tablet 1,000 mg PO HS PRN (Reason: Fever) carvedilol 3.125 mg Tablet 3.125 mg PO BID pantoprazole 40 mg Tablet,Delayed Release (Dr/Ec) 40 mg PO BID (DME) Oxygen Home Liters Per Minute Rx Instructions: 2LPM HS, AND NEEDED WITH ACTIVITY. furosemide 40 mg tablet 40 mg PO QAM amoxicillin 500 mg capsule 2,000 mg PO ONCE PRN (Reason: 1 hour before appt) aspirin 81 mg Tablet,Delayed Release (Dr/Ec) 81 mg PO DAILY lisinopril 10 mg tablet 5 mg PO QAM multivitamin with minerals Tablet 1 tab PO DAILY cholecalciferol (vitamin D3) [Vitamin D3] 25 mcg (1,000 unit) Tablet 50 mcg PO QAM levalbuterol HCl 0.63 mg/3 mL Solution For Nebulization 0.63 mg INHALATION Q4 PRN (Reason: wheezing,cough or SOB) albuterol sulfate [Ventolin HFA] 90 mcg/actuation HFA aerosol inhaler 2 puff INHALATION Q4H PRN (Reason: cough,SOB,or wheezing) Discharge Orders: Discharge Order (Routine); Ordered 12/30/22 Ordered By: Oscar Sosa/Other Patient Handouts: Asthma and COPD, Shortness of Breath Coping Admission Data Admit Date/Time: 12/27/22 18:07 Attending Provider: Oscar Mcdermott Admit Provider: Salomón Johnson Primary Care Provider: Amina Alcantar Other Providers: Darrion Farmer ; Hernando Gramajo ; Frankie Arroyo ; Kobe Del Rosario ; Katharina Ivan ; Joanne Armenta ; Sanam Bruce ; Teodoro Duque ; Salomón Johnson ; [facility] Other Interventions: Discharge Summary Assessment (RN) Last Done: 12/30/22 13:29
== END 2022-12-30 14:53 | disposition home health service (06) | DRG 202 ==
LOC: ED 12:36 → SUATTDRO 18:07 → 2S 18:07